=== PATIENT | male | born 1970 ===

== ENCOUNTER 2018-05-17 16:55 | Inpatient (IN) | payer MEDICAID ==
[~2018-05-17] VITALS: Ht 175.3 cm; Wt 122.3 kg
--- NOTE | ~2018-05-17 | HEMODYNAMI ---
PATIENT:EDDIE DAVEY MEDICAL RECORD: [id number] : 72 LOCATION:[address] ADMISSION DATE: 05/17/18 Generatedon:05/23/201814:35 Patient name: EDDIE DAVEY Patient #: [id number] SSN: : Date of study: 05/23/2018 Page: Of Hemodynamic Procedure Report Patient Data Patient Demographics Procedure consent was obtained First Name: EDDIE Gender: Male Last Name: TAMICA : 1970 Patient #: [id number] Age: 48 year(s) Race: Unknown Additional ID: [id number] Contact details Address: [address] [place] [address] State: [place] City: [place] Zip code: [address] Past Medical History Allergies Allergen Reaction Date Comments Reported Penicillins 05/23/2018 Admission Admission Data Admission Date: 05/17/2018 Admission Time: 20:15 Room #: [facility] Procedure Procedure Types Cath Procedure Diagnostic Procedure VANCE Procedure Description Procedure Date Procedure Date: 05/23/2018 Procedure Start Time: 14:19 Procedure End Time: 14:31 Procedure Staff Name Function Joshua Meza MD Performing Physician Alice Gu RT Monitor Gena Ng RT Employment Security Officer Cande Corrales RT Employment Security Officer Rohan Stone CRNA Additional personnel Otoniel Cartwright Typewriter Aligner Jessica Kay RN Employment Security Officer Procedure Data Procedure Complications No complications Procedure Medications Medication Administration Route Dosage 0.9% NaCl I.V. 100 ml/hr Oxygen etCO2 Nasal cannula 2 l/min Hurricaine Mcclure P.O. 1 Sprays Refer to Anesthesia Notes for Sedation Medications Hemodynamics Rest Heart Rate: 124 (bpm) Snapshots Pre Cath Intra NCS Post Cath Vital Signs Time Heart Resp SPO2 etCO2 NIBP (mmHg) Rhythm Pain Sedation Rate (ipm) (%) (mmHg) Status Level (bpm) 14:09:31 123 33 96 26.3 188/110(150) NSR 0 (11) 10(A) , No pain 14:15:11 125 33 98 28.5 192/124(153) NSR 0 (11) 10(A) , No pain 14:19:52 122 23 96 19.5 182/109(135) NSR 0 (11) 5(A) , No pain 14:24:35 119 19 100 16.5 167/87(132) NSR 0 (11) 5(A) , No pain 14:29:09 120 50 100 15 121/104(119) NSR 0 (11) 10(A) , No pain 14:34:08 121 13 99 21 Measuring NSR 0 (11) 10(A) , No pain 14:35:18 120 32 99 36 158/88(118) NSR 0 (11) 10(A) , No pain Medications Time Medication Route Dose Verified Delivered Reason Notes Effectiv eness by by 14:12:41 0.9% NaCl I.V. 100 Joshua Lopez used for ml/hr [place] [facility] procedure MD TORRES 14:12:48 Oxygen etCO2 2 Joshua Lopez used for Nasal l/min [facility] procedure cannula MD TORRES 14:13:01 Hurricaine P.O. 1 Joshua Lewis used for Mcclure Sprays [facility] procedure MD WHITE 14:13:07 Refer to Joshua Lewis Anesthesia [facility] Notes for MD WHITE Sedation Medications Procedure Log Time Note 13:33:46 Time tracking: Regular hours (M-F 7:00 - 5:00) 13:33:52 Plan of Care:Hemodynamics will remain stable., Cardiac rhythm will remain stable., Comfort level will be maintained., Respiratory function will remain adequate., Patient/ family verbilizes understanding of procedure., Procedure tolerated without complication., Recovers from procedure without complications.. 13:35:00 Alice Counts RT(R) sent for patient. Start room use. 14:04:25 Patient received from PCU to CCL 1 Alert and oriented. Tansferred to table in Supine position. 14:04:26 Warm blankets applied, and yrn hugger turned on for patient comfort. 14:04:27 Correct patient and procedure confirmed by team. 14:04:28 Signed procedure consent form obtained from patient. 14:04:28 ECG and BP/O2 sat monitors applied to patient. 14:04:29 Full Disclosure recording started 14:06:41 Vital chart was started 14:06:46 Rhythm: sinus tachycardia 14:08:36 H&P Date Dictated: 05/18/2018 Within 30 days and on chart.. 14:08:38 Pre-procedure instructions explained to patient. 14:08:39 Pre-op teaching completed and patient verbalized understanding. 14:08:40 Family in patients room. 14:08:42 Patient NPO since Midnight. 14:08:52 Patient allergic to Penicillins 14:08:59 Is the patient allergic to Iodine/contrast media? No. 14:09:01 Is patient on blood thinner?No 14:09:03 Patient diabetic? Yes. 14:09:04 If diabetic: On Metformin? No 14:09:08 ----Pre-sedation anethsthesia assessment.---- 14:09:21 see anesthesia notes for pre assessment 14:09:35 Patient pain scale 0/10 ?. 14:09:43 IV patent on arrival in left forearm with 0.9% NaCl at KVO. 14:09:45 Lab results completed and on chart. 14:09:50 Alarms reviewed by Laz Saunders 14:10:15 Rohan Stone CRNA present and monitoring patient for TIVA. 14:10:36 Otoniel Cartwright Radio News Writer present for VANCE. 14:12:41 0.9% NaCl 100 ml/hr I.V. was administered by Jessica Kay RN; used for procedure; 14:12:48 Oxygen 2 l/min etCO2 Nasal cannula was administered by Jessica Kay RN; used for procedure; 14:13:01 Hurricaine Mcclure 1 Sprays P.O. was administered by Joshua Meza MD; used for procedure; 14:13:07 Refer to Anesthesia Notes for Sedation Medications was administered by Joshua Meza MD; ; 14:13:33 Baseline sample Acquired. 14:17:10 Final Timeout: patient, procedure, and site verified with staff and physician. All members of the team are in agreement. 14:17:16 Physical assessment completed. ASA score P 3 - A patient with severe systemic disease as per Joshua Meza MD. 14:17:21 Sedation plan: TIVA Medication:Propofol 14:19:22 Procedure started. 14:19:49 VANCE started. 14:28:19 VANCE completed. 14:28:25 Procedure ended.(Physican Out) 14:28:44 Post procedure rhythm: unchanged. 14:28:56 Post-procedure physical assessment completed. ASA score P 2 - A patient with mild systemic disease as per Joshua Meza MD. 14:28:58 Post procedure instruction explained to patient.Patient verbalizes understanding. 14:28:58 Patient needs reinforcement of post procedure teaching. 14:29:04 See physician's report for complete and final results. 14:31:26 Procedure and supply charges have been captured, reviewed, submitted and are correct. 14:31:30 Procedure Complication : No complications 14:31:36 Report given to PCU. 14:31:42 Patient transfered to PCU with Bed. 14:31:53 Procedure ended. 14:31:53 Full Disclosure recording stopped 14:31:55 End room use (Document Last) 14:35:33 Vital chart was stopped Signature Audit [place] Stage Time Signature Unsigned Intra-Procedure 05/23/2018 Alice 2:35:31 PM Counts RT(R) Signatures Monitor : Alice Signature : Counts RT Date : Time : [address] [place] [address]
[2018-05-17 20:00] VITALS: BP 147/76
--- NOTE | 2018-05-17 20:51 | NUR ---
PT TO ROOM VIA EMS AT 2014. NO INFORMATION RECIEVED ABOUT PATIENT COMING. INVESTIGATED AND SPOKE TO EMS AND EMS STATED THAT PT WAS "BORDERLINE SEPTIC AND HAS A SEPTIC EMBOLI." NOTIFIED DR. CHAVIRA ABOUT PT STATUS. ORDERED STAT LABS, CT, AND VSS. PT RUNNING SINUS TACH 124 ON THE MONITOR. BP 147/64. SPO2 94% ON RA. TEMP 98.9. NO OTHER NEEDS NOTED AT THIS TIME. WCTM AND FOLLOW POC. CL IN REACH, SR UP X2, BED IN LOWEST POSITION.
[2018-05-17] MEDS ORDERED: LANTUS SOL100 UNIT/1 (22:16)
[2018-05-17 22:33] VITALS: BP 147/76; BMI 34.5
[2018-05-17 22:38] LABS: HEMATOCRIT 29.8 % (42.0-54.0); HEMOGLOBIN 10.5 g/dL (13.5-17.5); MCH 28.2 pg (26.0-34.0); MCHC 35.2 g/dL (31.0-37.0); MCV 79.9 fL (80.0-100.0); MEAN PLATELET VOLUME 10.8 fL (7.4-10.4); PLATELET COUNT 391 10x3/uL (130-400); RBC 3.73 10x6/uL (4.20-6.10); RDW 14.5 % (11.5-14.5); WBC 30.1 10x3/uL (4.8-10.8)
[2018-05-17 22:39] LABS: APTT 26.5 SECONDS (22.8-39.4); INR 1.31 (0.85-1.17); PROTIME 15.8 SECONDS (11.6-15.0)
[2018-05-17 22:44] LABS: CALC OSMOLALITY 264 mosm/kg (275-300); CALCIUM 7.5 mg/dL (8.5-10.1); CARBON DIOXIDE 26.4 mmol/L (21.0-32.0); CHLORIDE - SERUM 96 mmol/L (98-107); GLUCOSE 128 mg/dL (74-106); POTASSIUM - SERUM 4.2 mmol/L (3.5-5.1); SODIUM 129 mmol/L (136-145); UREA NITROGEN 25 mg/dL (7-18); eGFR NON AFRICAN AMERICAN 85 mL/min (90-120)
[2018-05-17 22:56] LABS: EOSINOPHILS 1 % (0-7); LYMPHOCYTES 9 % (15-50); MONOCYTES 6 % (2-11); NEUTROPHILS 81 % (40-80); PLATELET ESTIMATE NORMAL
[2018-05-17] MEDS ORDERED: HUMULIN N100 U/ML SC (23:00)
--- NOTE | 2018-05-17 23:17 | NUR ---
PT STATES PAIN OF 10/10 IN BACK [address] NOTIFIED DR[address] CHAVIRA FOR PAIN MEDICATION. OBTAINED ORDER FOR NORCO [address] CHAVIRA OF LABS AND IF WE NEEDED AMMONIA OR LACTIC ACID LEVELS, DENIED BOTH AND STATED "WE WILL LOOK AT THE OTHER LABS IN THE MORNING." PT HR STILL 120. BUT STABLE OTHERWISE. WCTM AND FOLLOW POC. CL IN REACH, SR UP X2, BED IN LOWEST POSITION, AT BEDSIDE.
[2018-05-18] VITALS: BP 124/68
--- NOTE | 2018-05-18 03:50 | NUR ---
TO PT ROOM VIA CALL LIGHT - PT STATES HE WOULD LIKE SOMETHING FOR SLEEP AND SOMETHING STRONGER FOR PAIN, BUT STATES HE WOULD PREFER TO WAIT UNTIL THE MORNING TO BE ABLE TO PERSONALLY TALK TO THE DR. WILL ADMINISTER PRESCRIBED ANALGESIC ACCORDING TO TIME RESTRAINT AND INFORMED PT OF THIS. PT VERBALIZED UNDERSTANDING. VSS. RR EVEN AND UL, NO S/S OF DISTRESS. CL IN REACH, SR UP X2, BED IN LOWEST POSITION. AT BEDSIDE.
[2018-05-18 04:32] VITALS: BP 159/89
[2018-05-18 09:00] VITALS: BP 140/91
[2018-05-18 11:44] VITALS: BMI 35.2
[2018-05-18 12:43] VITALS: BP 143/78
[2018-05-18 15:04] LABS: % SATURATION 11 % (15-55); IRON 12 ug/dl (35-150); TOTAL IRON BIND CAPACITY 107 ug/dl (260-445); UNSAT IRON BIND CAPACITY 95 ug/dl (150-375)
[2018-05-18 15:06] LABS: HEMOGLOBIN 9.4 g/dL (13.5-17.5); MCH 27.3 pg (26.0-34.0); MCHC 33.6 g/dL (31.0-37.0); MCV 81.4 fL (80.0-100.0); MEAN PLATELET VOLUME 10.8 fL (7.4-10.4); PLATELET COUNT 382 10x3/uL (130-400); RBC 3.44 10x6/uL (4.20-6.10); RDW 14.7 % (11.5-14.5); WBC 30.1 10x3/uL (4.8-10.8)
[2018-05-18 15:18] LABS: APTT 27.9 SECONDS (22.8-39.4); INR 1.33 (0.85-1.17)
[2018-05-18 15:37] LABS: ALKALINE PHOSPHATASE 208 U/L (46-116); ALT (SGPT) 25 U/L (10-68); BILIRUBIN - TOTAL 0.71 mg/dL (0.2-1.3); CALC OSMOLALITY 267 mosm/kg (275-300); CALCIUM 7.2 mg/dL (8.5-10.1); CARBON DIOXIDE 26.9 mmol/L (21.0-32.0); CHLORIDE - SERUM 94 mmol/L (98-107); CREATININE - SERUM 1.1 mg/dL (0.6-1.3); FERRITIN 1712 ng/mL (3-244); GLUCOSE 252 mg/dL (74-106); MAGNESIUM - SERUM 1.9 mg/dL (1.8-2.4); POTASSIUM - SERUM 4.1 mmol/L (3.5-5.1); SODIUM 127 mmol/L (136-145); UREA NITROGEN 23 mg/dL (7-18); eGFR NON AFRICAN AMERICAN 76 mL/min (90-120)
[2018-05-18 16:05] VITALS: BP 143/89
[2018-05-18 17:22] LABS: LYMPHOCYTES 9 % (15-50); MONOCYTES 5 % (2-11); NEUTROPHILS 82 % (40-80); PLATELET ESTIMATE NORMAL; PLATELET MORPHOLOGY PLT CLUMPS PRESENT
--- NOTE | 2018-05-18 17:54 | NUR ---
ATTEMPTED MRI; PATIENT IN TOO MUCH PAIN; REFUSED; WILL ATTEMPT TOMORROW.
[2018-05-18 20:00] VITALS: BP 118/47
[2018-05-18 20:00] LABS: ERYTHROCYTE SEDIMENTATION RATE 95 mm/hr (0-15)
--- NOTE | 2018-05-18 23:15 | NUR ---
Received patient in bed, eyes closed, respirations unlabored, deemed to be sleeping. is at bedside. PIV in left forearm in infusing NS TKVO @10ml/hr, no signs of distress. Telemetry on, rhythm ST.
[2018-05-19] VITALS: BP 137/66
[2018-05-19 04:00] VITALS: BP 133/67
[2018-05-19 09:13] VITALS: BP 166/77
[2018-05-19 12:30] VITALS: BP 136/65
--- NOTE | 2018-05-19 12:57 | NUR ---
ATTEMPTED TO GET PATIENT AT 0930 PT IN TOO MUCH PAIN NEEDED MEDS. SPOKE WITH EDWARD TORRES AND SHE WAS GOING TO CALL AND GET AN ORDER. EDWARD CALLED ME BACK AND TOLD ME MEDS WERE ORDERED. TRIED TO GET PATIENT DOWN AGAIN AT 1130. PATIENT REFUSED HE WANTED TO SLEEP INSTEAD. WILL ATTEMPT AGAIN AT THE END OF THE DAY.
--- NOTE | 2018-05-19 19:29 | NUR ---
PT IN BED EATING RED POPCICLE. DENIES NEEDS AT THIS TIME.
[2018-05-19 20:00] VITALS: BP 153/72
[2018-05-20] VITALS (8 sets, daily range): BP systolic 122–185; BP diastolic 71–85
--- NOTE | 2018-05-20 04:21 | NUR ---
RESTING IN BED WITH EYES CLOSED. NO S/S OF DISTRESS OBSERVED. CALL LIGHT IN REACH.
[2018-05-20 12:34] LABS: HEMATOCRIT 28.4 % (42.0-54.0); HEMOGLOBIN 9.6 g/dL (13.5-17.5); MCH 27.5 pg (26.0-34.0); MCHC 33.8 g/dL (31.0-37.0); MCV 81.4 fL (80.0-100.0); MEAN PLATELET VOLUME 10.3 fL (7.4-10.4); PLATELET COUNT 495 10x3/uL (130-400); RBC 3.49 10x6/uL (4.20-6.10); RDW 14.6 % (11.5-14.5); WBC 28.2 10x3/uL (4.8-10.8)
[2018-05-20 12:39] LABS: ANION GAP 13.2 mmol/L (8-16); CALCIUM 7.4 mg/dL (8.5-10.1); CARBON DIOXIDE 24.3 mmol/L (21.0-32.0); CREATININE - SERUM 1.2 mg/dL (0.6-1.3); POTASSIUM - SERUM 4.5 mmol/L (3.5-5.1)
[2018-05-20 12:53] LABS: LYMPHOCYTES 6 % (15-50); MONOCYTES 7 % (2-11); NEUTROPHILS 85 % (40-80)
[2018-05-20 12:54] LABS: PLATELET ESTIMATE INCREASED
--- NOTE | 2018-05-20 19:23 | NUR ---
PT IN BED. AT BEDSIDE. DENIES NEEDS AT THIS TIME.
--- NOTE | 2018-05-21 01:30 | NUR ---
RESTING IN BED. IVF NS @ 75ML/HR TO LEFT WRIST. CURRENT TEMP 99.5 . ON CONTACT PRECAUTIONS FOR MRSA IN BLOOD. MONITOR AND CPOC.
--- NOTE | 2018-05-21 01:57 | NUR ---
SOME ISSUES NOTED BETWEEN PT AND HIS . RAISED VOICES IN ROOM. DIRECTED TO PLEASE LOWER VOICES AND IT IS THE MIDDLE OF THE NIGHT.
[2018-05-21 03:56] VITALS: BP 191/94
--- NOTE | 2018-05-21 07:40 | NUR ---
ASSESSMENT DONE. DENIES NEEDS.
[2018-05-21 08:28] VITALS: BP 193/95
[2018-05-21 09:14] LABS: ANION GAP 12.6 mmol/L (8-16); CALCIUM 7.2 mg/dL (8.5-10.1); CREATININE - SERUM 1.3 mg/dL (0.6-1.3); POTASSIUM - SERUM 4.6 mmol/L (3.5-5.1)
[2018-05-21 09:16] LABS: BASOPHILS 0.1 % (0-2); EOSINOPHILS 0 % (0-7); HEMATOCRIT 26.6 % (42.0-54.0); HEMOGLOBIN 8.9 g/dL (13.5-17.5); IMMATURE GRANULOCYTES 0.8 % (0-5); LYMPHOCYTES 6.6 % (15-50); MCH 27.1 pg (26.0-34.0); MCHC 33.5 g/dL (31.0-37.0); MCV 81.1 fL (80.0-100.0); MEAN PLATELET VOLUME 9.9 fL (7.4-10.4); MONOCYTES 9.1 % (2-11); NEUTROPHILS 83.4 % (40-80); PLATELET COUNT 473 10x3/uL (130-400); RBC 3.28 10x6/uL (4.20-6.10); RDW 14.4 % (11.5-14.5); WBC 28.5 10x3/uL (4.8-10.8)
--- NOTE | 2018-05-21 09:45 | NUR ---
RESTS IN ISOLATION. RESP UL ON . IV PATENT. CALL LIOGHT IN REACH. WILL MONITOR NEEDS.
--- NOTE | 2018-05-21 12:00 | NUR ---
ISO DC PER LAB. BC NEG
[2018-05-21 12:10] VITALS: BP 149/86
[2018-05-21 16:55] VITALS: BP 181/87
--- NOTE | 2018-05-21 17:37 | NUR ---
WITHOUT CHANGES OR DISTRESS NOTED AT THIS TIME. DENIES NEEDS.
[2018-05-21 19:50] VITALS: BP 177/83
[2018-05-21 23:52] VITALS: BP 169/81
[2018-05-22 03:45] VITALS: BP 155/83
--- NOTE | 2018-05-22 04:21 | NUR ---
PT YELLING LOUDLY AND ARGUING WITH , ENTERED ROOM AND PT SITTING UP ON SIDE OF BED AND LEFT ROOM QUICKLY, PT STATED THAT HE IS SORRY FOR YELLING AND IS JUST IN PAIN AND THIRSTY. OFFERED PT CAROLCO, INFORMED HIM THAT HE CAN TAKE MEDICATION WITH A SMALL SIP OF WATER AND STILL BE OK FOR PROCEDURE THIS MORNING. 0426- NORCO 1 TAB GIVEN WITH SMALL SIP OF WATER, ASSISTED PT TO CHAIR AT BED SIDE AND PLACED PTS O2 BACK ON, PT APOLOGETIC FOR CAUSING A DISTURBANCE.
--- NOTE | 2018-05-22 05:01 | NUR ---
PT AND SPOUSE IN ROOM HAVING A VERBAL ARGUMENT. STAFF X 2 SPOKE WITH PT AND SPOUSE AND INFORMED THEM THAT THIS WAS NOT ACCEPTABLE BEHAVIOR AND WOULD NOT BE TOLERATED. SPOUSE LEFT ROOM. NOTIFIED SECURITY AND HE ARRIVED TO ROOM TO SPEAK WITH PATIENT. SPOUSE RETURNED AND IS CURRENTLY IN ROOM WITH PATIENT.
[2018-05-22 06:58] LABS: ANION GAP 14.4 mmol/L (8-16); CALCIUM 7.5 mg/dL (8.5-10.1); CREATININE - SERUM 1.3 mg/dL (0.6-1.3); POTASSIUM - SERUM 4.4 mmol/L (3.5-5.1)
[2018-05-22 07:56] LABS: HEMATOCRIT 25.6 % (42.0-54.0); HEMOGLOBIN 8.5 g/dL (13.5-17.5); MCH 27.2 pg (26.0-34.0); MCHC 33.2 g/dL (31.0-37.0); MCV 82.1 fL (80.0-100.0); MEAN PLATELET VOLUME 10.7 fL (7.4-10.4); PLATELET COUNT 492 10x3/uL (130-400); RBC 3.12 10x6/uL (4.20-6.10); RDW 14.8 % (11.5-14.5)
--- NOTE | 2018-05-22 08:15 | NUR ---
IDENTIFICATION AND RECORDS COMMANDER STATES MD IS CANCELING VANCE TODAY AND WILL DP IT POSSIBLY TOMORROW.
[2018-05-22 08:44] VITALS: BP 162/81
[2018-05-22 09:14] LABS: EOSINOPHILS 1 % (0-7); LYMPHOCYTES 9 % (15-50); MONOCYTES 6 % (2-11); NEUTROPHILS 82 % (40-80); PLATELET ESTIMATE INCREASED
[2018-05-22 09:15] LABS: HYPOCHROMASIA OCC
--- NOTE | 2018-05-22 11:46 | EC ---
PATIENT:EDDIE DAVEY DATE OF SERVICE: 05/17/18 SEX: M MEDICAL RECORD: [id number] DATE OF : [birth year] LOCATION:D.M2 D.213 AGE OF PATIENT: 48 ADMISSION DATE: 05/17/18 REFERRING PHYSICIAN: INTERPRETING PHYSICIAN: MATTHIEU ALVAREZ MD ECHOCARDIOGRAM REPORT ECHO CHARGES 4 ECHO COMPLETE Date: 05/18/18 CLINICAL DIAGNOSIS: ASSESS FOR VEGATATION ECHOCARDIOGRAPHIC MEASUREMENTS (adult normal given) AC root (d.<3.7cm) 3.2 cm LV Septum d (<1.2 cm> 1.4 cm Valve Excursion 1.4 cm LV Septum (systole) 1.7 cm Left Atria (s.<4.0cm> 3.9 cm LVPW d(<1.2cm) 1.7 cm RV (d.<2.3cm) 4.1 cm LVPW (sytole) 1.9 cm LV diastole(<5.6CM) 5.1 cm MV E-F(>70mm/sec) cm LV systole 4.1 cm LVOT Diameter 1.9 cm MV exc.(>10mm) 2.3 cm Est.ejection fraction (50-75%) % DOPPLER: LVIT cm/sec A 127 cm/sec E 112 cm/sec LA cm/sec RVSP 25 mmHg LVOT 153 cm/sec AOP1/2T m/s Asc. Ao 229 cm/sec RVOT 142 cm/sec RA cm/sec PA 168 cm/sec AV Gradient Peak 21.04mmHg AV Mean 12.23mmHg AV Area 2.0 cm MV Gradient Peak 7.08 mmHg MV Mean 3.59 mmHg MV Area cm COMMENTS: Chief Engineering Division: Oriana SCHWARZ Barrel Marker: 1 Dr. Alvarez TAPE# PACS Pericardial Effusion N DATE OF SERVICE: 05/18/2018 FINDINGS: 1. Left ventricular chamber size is within normal limits. Left ventricular systolic function is normal. Overall ejection fraction estimated at 60%. 2. Left atrium, right atrium, and right ventricle chamber sizes are within normal limits. 3. Valvular structures have normal structure and motion. No evidence of vegetative endocarditis. 4. Doppler interrogation reveals no significant valvular insufficiency or ECHOCARDIOGRAM REPORT [id number] EDDIE DAVEY stenosis. 5. No evidence of pericardial effusion or left ventricular thrombus. TRANSINT:[id number] Voice Confirmation ID: [id number] DOCUMENT ID: [id number] MATTHIEU ALVAREZ MD at 1146 CC: [id number] DICTATION DATE: 05/19/18 1127 CORPORATE REAL ESTATE MANAGER: 05/19/18 1136 ADM IN [facility] [address] [id number]
[2018-05-22 12:02] VITALS: BP 166/78
--- NOTE | 2018-05-22 13:51 | NUR ---
Nutrition follow-up: Diet: ADA consistent CHO PO Intake 100% of meals Labs reviewed Wt: 233# +BM visited with pt during meal rounds. Pt with no issues with meals at this time. RDN following.
--- NOTE | 2018-05-22 15:26 | NUR ---
PT IN BED. MD AND DRAWER MAKER AT BEDSIDE ALONG WITH FAMILY. BED LOW. CL IN REACH.
[2018-05-22 16:01] VITALS: BP 103/64
--- NOTE | 2018-05-22 16:01 | NUR ---
PT'S WANTED MD TO LOOK AT PT'S LEGS. DR. FLANAGAN STATES RED WHITMORE ON BACK OF PT'S LEGS IS JUST SCRATCH WHITMORE.
[2018-05-22 20:00] VITALS: BP 163/95
[2018-05-23] VITALS: BP 157/97
--- NOTE | 2018-05-23 03:00 | NUR ---
LYING IN BED WITH EYES CLOSED, CALL LIGHT IN REACH. WILL CONTINUE WITH PLAN OF CARE.
--- NOTE | 2018-05-23 03:45 | NUR ---
RESTING WITH EYES CLOSED, RESPERATIONS EVEN, NO S/S DISTRESS NOTED.
[2018-05-23 04:00] VITALS: BP 160/99
[2018-05-23 06:04] LABS: ANION GAP 14.6 mmol/L (8-16); CALCIUM 7.2 mg/dL (8.5-10.1); CARBON DIOXIDE 20.9 mmol/L (21.0-32.0); CREATININE - SERUM 1.2 mg/dL (0.6-1.3); POTASSIUM - SERUM 4.5 mmol/L (3.5-5.1)
[2018-05-23 06:18] LABS: BASOPHILS 0.2 % (0-2); EOSINOPHILS 0 % (0-7); HEMATOCRIT 24.9 % (42.0-54.0); HEMOGLOBIN 8.2 g/dL (13.5-17.5); IMMATURE GRANULOCYTES 0.6 % (0-5); LYMPHOCYTES 7.8 % (15-50); MCH 26.8 pg (26.0-34.0); MCHC 32.9 g/dL (31.0-37.0); MCV 81.4 fL (80.0-100.0); MONOCYTES 8.1 % (2-11); NEUTROPHILS 83.3 % (40-80); PLATELET COUNT 538 10x3/uL (130-400); RBC 3.06 10x6/uL (4.20-6.10); RDW 14.7 % (11.5-14.5); WBC 26.9 10x3/uL (4.8-10.8)
[2018-05-23 09:47] VITALS: BP 182/97
--- NOTE | 2018-05-23 11:30 | NUR ---
SPOKE WITH INFECTION CONTROL AND THEY STATE PT NEEDS TO BE ON TEMPORARY DROPLET ISOLATION UNTIL THEY RULE OUT MRSA. PT PLACED ON DROPLET ISOLATION.
--- NOTE | 2018-05-23 11:52 | NUR ---
CALLED AND SPOKE WITH MACHINE PECAN PICKER THEY STATED THEY DON'T HAVE A TIME LADELL IS DOING A HEART RIGHT NOW AND IT WON'T BE UNTIL AFTER.
--- NOTE | 2018-05-23 12:10 | NUR ---
MACHINE BP WAS 203/101. MANUALLY CHECKED BP AND IT IS 184/88.
--- NOTE | 2018-05-23 14:00 | NUR ---
PT TAKEN FOR VANCE.
--- NOTE | 2018-05-23 14:39 | NUR ---
SCRAPER HAND STATES PT IS WAKING UP FROM TIVA AND HE DOES HAVE SOME VEGITATION.
[2018-05-23 14:45] VITALS: BP 149/87
--- NOTE | 2018-05-23 14:45 | NUR ---
PT RETURNED FROM VANCE ALERT AND ORIENTED. VS STABLE. PT NOT WANTING TO BE HOOKED UP TO VITAL MACHINE. PT WANTING TO GO USE BATHROOM. UNHOOKED PT FROM VS MACHINE. AT BEDSIDE.
--- NOTE | 2018-05-23 15:41 | NUR ---
DR. FLANAGAN STATES PT DOES NOT NEED TO BE ON ISOLATION. IT'S MSA NOT MRSA.
--- NOTE | 2018-05-23 15:43 | NUR ---
DC'D DROPLET ISOLATION. NOTFIED INFECTION CONTROL AND THEY STATED THEY WOULD REMOVE IT.
[2018-05-23 20:00] VITALS: BP 150/86
[2018-05-24] VITALS: BP 176/80
--- NOTE | 2018-05-24 03:05 | NUR ---
RN NOTE: PATIENT RESTING COMFORTABLY IN BED. RESPIRATIONS ARE EVEN AND UNLABORED. NO S/S OF DISTRESS. CALL LIGHT WITHIN REACH. WILL CPOC.
[2018-05-24 04:00] VITALS: BP 155/97
[2018-05-24 07:42] LABS: CALC OSMOLALITY 269 mosm/kg (275-300); CALCIUM 7.4 mg/dL (8.5-10.1); CARBON DIOXIDE 20.9 mmol/L (21.0-32.0); CHLORIDE - SERUM 97 mmol/L (98-107); CREATININE - SERUM 1.1 mg/dL (0.6-1.3); GLUCOSE 180 mg/dL (74-106); POTASSIUM - SERUM 4.6 mmol/L (3.5-5.1); SODIUM 128 mmol/L (136-145); UREA NITROGEN 35 mg/dL (7-18); eGFR NON AFRICAN AMERICAN 76 mL/min (90-120)
[2018-05-24 08:06] LABS: HEMATOCRIT 23.2 % (42.0-54.0); HEMOGLOBIN 7.6 g/dL (13.5-17.5); MCH 26.9 pg (26.0-34.0); MCHC 32.8 g/dL (31.0-37.0); MEAN PLATELET VOLUME 9.9 fL (7.4-10.4); PLATELET COUNT 494 10x3/uL (130-400); RBC 2.83 10x6/uL (4.20-6.10); RDW 14.6 % (11.5-14.5); WBC 21.6 10x3/uL (4.8-10.8)
[2018-05-24 08:07] VITALS: BP 146/84
[2018-05-24 08:38] LABS: HYPOCHROMASIA OCC; LYMPHOCYTES 7 % (15-50); MONOCYTES 6 % (2-11); NEUTROPHILS 85 % (40-80); PLATELET ESTIMATE INCREASED; ROULEAUX OCC
--- NOTE | 2018-05-24 09:30 | NUR ---
PT HAD NOSE BLEED WITH MINIMAL BLOOD.
--- NOTE | 2018-05-24 10:40 | NUR ---
ALERT AND ORIENTED X4. SITTING UP IN BED. INITIATE DROPLET ISOLATION PER INFECTION CONTROL FOR MRSA IN SPUTUM. DAI NAVA RESUMES PLAN OF CARE. AGREE WITH ASSESSMENT.
--- NOTE | 2018-05-24 11:00 | NUR ---
PT'S TOLD SHE NEEDS TO FOLLOW ISOLATION PRECAUTIONS AND SHE BECAME VISIBLY UPSET WITH NURISNG INSTRUCTOR AND STUDENT.
[2018-05-24 12:11] VITALS: BP 160/98
--- NOTE | 2018-05-24 14:07 | NUR ---
PT TAKEN DOWN FOR XR VIA WC.
--- NOTE | 2018-05-24 14:30 | NUR ---
DR. RIDER AWARE OF PT'S NOSE BLEED EARLIER TODAY.
--- NOTE | 2018-05-24 14:33 | NUR ---
SPOKE WITH SIMRAN FROM IR SHE STATED THEY WON'T DO THORACENTESIS UNTIL PT GETS BLOOD. CALLED [facility]OCK DAVILA AND SHE ORDERED 2 UNITS OF PRBC FOLLOW BY 40 LISA. NOTIFIED SIMRAN TORRES FROM IR AND SHE STATES THAT THEY WILL DO PT TOMORROW AND TO MAKE PT NPO AFTER MIDNIGHT.
--- NOTE | 2018-05-24 14:35 | NUR ---
SPOKE WITH SIMRAN FROM IR SHE STATED THEY WON'T DO THORACENTESIS UNTIL PT GETS BLOOD. CALLED [facility] DAVILA AND SHE ORDERED 2 UNITS OF PRBC FOLLOW BY 20MG LASIX. NOTIFIED SIMRAN TORRES FROM IR AND SHE STATES THAT THEY WILL DO PT TOMORROW AND TO MAKE PT NPO AFTER MIDNIGHT.
[2018-05-24 15:33] VITALS: BP 150/88
--- NOTE | 2018-05-24 16:43 | MORECARE ---
CASE MANAGEMENT DISCHARGE SUMMARY PATIENT: EDDIE DAVEY UNIT: [id number] ADM DATE: 05/17/18 AGE: 48 : [birth year] SEX: M ROOM/BED: D.2130 AUTHOR: JOSE MANUEL CHURCH PHYSICIAN: REFERRING PHYSICIAN: ANA CHAVIRA MD DATE OF SERVICE: 05/24/18 Discharge Plan Patient Name: EDDIE DAVEY [facility] [facility] 1970 Planned Disposition: Home Anticipated Discharge Date: Discharge Date: Expected LOS: Initial Reviewer: [email or web address] Initial Review Date: 05/17/2018 Generated: 05/24/18 5:43 pm DCPIA - Discharge Planning Initial Assessment Updated by [email or web address]: Cholo White on 05/24/18 4:39 pm * Is the patient Alert and Oriented? Yes * How many steps to enter\exit or inside your home? * PCP DR. JIMÉNEZ AT [facility] IN [place] * Pharmacy [facility] IN [place] * Preadmission Environment Home with Family * ADLs Independent * Equipment None * Other Equipment [facility] - PREFERRED EQUIPMENT PROVIDER * List name and contact numbers for known caregivers / representatives who currently or will assist patient after discharge: DHEERAJ DAVEY, SPOUSE, * Verbal permission to speak to the caregivers and representatives has been obtained from the patient. Yes * Community resources currently utilized None * Please name any agencies selected above. NONE * Additional services required to return to the preadmission environment? Yes * Can the patient safely return to the preadmission environment? Yes * Has this patient been hospitalized within the prior 30 days at any hospital? No Patient Name: EDDIE DAVEY Page [id number] at 1643 All edits/amendments must be made on the electronic document DICTATION DATE: 05/24/181641 INDUSTRIAL WELDER: JUSTINA 05/24/181641 RPT#: [id number] DC DATE: STATUS: ADM IN [facility] [address] [place] [address] END OF REPORT
--- NOTE | 2018-05-24 16:45 | NUR ---
X2 UNITS OF PRBC READY IN LAB. JUST STARTED PT'S ANCEF WILL LET THAT FINISH FIRST.
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
[2018-05-24 17:22] VITALS: Ht 175.3 cm; Wt 122.3 kg
--- NOTE | 2018-05-24 17:38 | NUR ---
MIKKI TORRES EXPLAINED TO PT ABOUT BLOOD REACTION AND GETING BLOOD TRANSFUSION. PT VERBALIZED UNDERSTANDING. MIKKI TORRES SPIKED PRBC AND STARTED BLOOD WITH THIS NURSE AT BEDSIDE. VS STABLE. LEFT WRIST 22G BLOOD INFUSING AT 125ML/HR.
--- NOTE | 2018-05-24 18:00 | NUR ---
PT SHOWS NO S/S OF BLOOD REACTION. AFTER FIRST 15 MINUTES. VS STABLE. PT IS ALERT AND ORIENTED AND EATING DINNER TRAY. INCREASED PRBC INFUSING FROM 125 TO 135ML/HR THROUGH LEFT WRIST 22G IV. AT BEDSIDE. WILL CONTINUE TO MONITOR.
--- NOTE | 2018-05-24 18:13 | NUR ---
PT TO WEAR [address] RIDER.
[2018-05-24 20:00] VITALS: BP 187/93
--- NOTE | 2018-05-24 20:48 | NUR ---
PRBCs FINISHED INFUSING, LINE FLUSING WITH NS. NO S/S ADVERSE REACTION NOTED.
--- NOTE | 2018-05-24 22:26 | NUR ---
SECOND UNIT OF PRBCs INFUSING, VITALS STABLE.
[2018-05-25] VITALS: BP 179/89
--- NOTE | 2018-05-25 01:11 | NUR ---
SECOND UNIT OF PRBCS FINISHED INFUSING, LINE FLUSHING WITH NS, NO S/S ADVERSE REACTION NOTED. VITALS REMAIN STABLE.
[2018-05-25 04:00] VITALS: BP 123/58
[2018-05-25 07:10] LABS: APTT 32.4 SECONDS (22.8-39.4)
[2018-05-25 07:11] LABS: INR 1.23 (0.85-1.17); PROTIME 14.9 SECONDS (11.6-15.0)
[2018-05-25 07:24] LABS: ALBUMIN 1.2 g/dL (3.4-5.0); ANION GAP 15.9 mmol/L (8-16); BILIRUBIN - TOTAL 0.57 mg/dL (0.2-1.3); CALCIUM 7.4 mg/dL (8.5-10.1); CARBON DIOXIDE 20.7 mmol/L (21.0-32.0); CREATININE - SERUM 1.2 mg/dL (0.6-1.3); POTASSIUM - SERUM 4.6 mmol/L (3.5-5.1)
[2018-05-25 07:42] LABS: BASOPHILS 0.1 % (0-2); EOSINOPHILS 0 % (0-7); HEMATOCRIT 27.6 % (42.0-54.0); HEMOGLOBIN 9.2 g/dL (13.5-17.5); IMMATURE GRANULOCYTES 0.8 % (0-5); LYMPHOCYTES 9.3 % (15-50); MCHC 33.3 g/dL (31.0-37.0); MCV 80.9 fL (80.0-100.0); MEAN PLATELET VOLUME 9.5 fL (7.4-10.4); MONOCYTES 7.6 % (2-11); NEUTROPHILS 82.2 % (40-80); PLATELET COUNT 473 10x3/uL (130-400); RBC 3.41 10x6/uL (4.20-6.10); RDW 15.3 % (11.5-14.5); WBC 22.1 10x3/uL (4.8-10.8)
[2018-05-25 08:40] VITALS: BP 216/100
[2018-05-25 11:37] VITALS: BP 181/88
[2018-05-25 15:56] VITALS: BP 144/72
--- NOTE | 2018-05-25 19:03 | NUR ---
PT IN CHAIR AT BEDSIDE. IN BED. PT DENIES NEEDS AT THIS TIME.
[2018-05-25 20:00] VITALS: BP 165/90
[2018-05-26] VITALS: BP 167/85
[2018-05-26 04:00] VITALS: BP 188/96
--- NOTE | 2018-05-26 04:00 | NUR ---
FINANCIAL ADVISOR TRAINEE AT BEDSIDE TO OBTAIN VITALS, CALL LIGHT IN REACH. WILL CONTINUE WITH PLAN OF CARE.
[2018-05-26 05:58] LABS: ALBUMIN 1.1 g/dL (3.4-5.0); ANION GAP 14.6 mmol/L (8-16); BILIRUBIN - TOTAL 0.48 mg/dL (0.2-1.3); CALCIUM 7.6 mg/dL (8.5-10.1); CARBON DIOXIDE 21.1 mmol/L (21.0-32.0); CREATININE - SERUM 1.2 mg/dL (0.6-1.3); POTASSIUM - SERUM 4.7 mmol/L (3.5-5.1); PROTEIN - SERUM 6.7 g/dL (6.4-8.2)
[2018-05-26 06:10] LABS: HEMATOCRIT 27.7 % (42.0-54.0); HEMOGLOBIN 9.3 g/dL (13.5-17.5); MCH 27.4 pg (26.0-34.0); MCHC 33.6 g/dL (31.0-37.0); MCV 81.7 fL (80.0-100.0); MEAN PLATELET VOLUME 8.8 fL (7.4-10.4); PLATELET COUNT 432 10x3/uL (130-400); RBC 3.39 10x6/uL (4.20-6.10); RDW 15.8 % (11.5-14.5)
--- NOTE | 2018-05-26 07:29 | NUR ---
PT AWAKE ON HERMILA EOF BED. AT BEDSIDE. HE'S EATING WITHOUT DIFFICULTY. CL IN REACH. SRX2. NO COMPLAINTS/CONCERNS VOICED AT THIS TIME.
[2018-05-26 07:37] LABS: LYMPHOCYTES 4 % (15-50); MONOCYTES 8 % (2-11); NEUTROPHILS 84 % (40-80); PLATELET ESTIMATE INCREASED
[2018-05-26 08:20] VITALS: BP 133/76
[2018-05-26 13:01] VITALS: BP 161/74
--- NOTE | 2018-05-26 13:29 | NUR ---
REVIEWED AND AGREE WITH ASSESMENT.
--- NOTE | 2018-05-26 14:22 | NUR ---
Nutrition Follow Up: Chart reviewed Diet: ADA PO Intake: 97% meal avg BM: 05/26/18 Wt stable Labs reviewed - glucose continues elevated Meds noted including Lasix, Humulin Rec continue ADA diet. RD following.
--- NOTE | 2018-05-26 15:10 | NUR ---
Red rash noted on bilateral arms and legs. Primary physician aware.
--- NOTE | 2018-05-26 16:52 | NUR ---
DR. RIDER REQUESTS INCENTIVE SPIROMETRY FOR PT. WILL ACCOMIDATE.
--- NOTE | 2018-05-26 17:39 | NUR ---
PT WAS ASSISTING WITH SHOWER. SPILT WATER ON THE FLOOR, PROCEEDED TO SLIP AND HURT HER KNEE. IS FINE NOW, WILL FOLLOW UP.
--- NOTE | 2018-05-26 19:31 | NUR ---
CALLED INTO PTS ROOM BY FAMILY. C/O PAIN IN AND AROUND ABD. INSPECTED, IT'S OBVIOUSLY MORE SWOLLEN THAN EARLY TODAY. DISTED AND FIRM. STATES IT FEELS LIKE PREASURE.
[2018-05-26 20:00] VITALS: BP 151/79
--- NOTE | 2018-05-26 20:11 | NUR ---
RECIEVED SITTING UP IN CHAIR WITH SPOUSE LYING IN BED WITH EYES CLOSED. ALERT AND ORIENTED X4. UP AD JUDSON. IV TO LEFT UPPER ARM SL. REMAINS ON DROPLET ISOLATION R/T MRSA IN SPUTUM. DENIES ANY NEEDS AT THIS TIME.
[2018-05-27 00:05] VITALS: BP 161/90
[2018-05-27 04:00] VITALS: BP 152/86
--- NOTE | 2018-05-27 08:19 | NUR ---
PATIENT IS ALERT AND AWAKE. FAMILY AT BEDSIDE. DENIES ANY NEEDS AT THIS TIME.
[2018-05-27 09:52] LABS: BASOPHILS 0.2 % (0-2); EOSINOPHILS 0 % (0-7); HEMATOCRIT 25.6 % (42.0-54.0); HEMOGLOBIN 8.4 g/dL (13.5-17.5); IMMATURE GRANULOCYTES 0.7 % (0-5); LYMPHOCYTES 9.6 % (15-50); MCH 26.6 pg (26.0-34.0); MCHC 32.8 g/dL (31.0-37.0); MEAN PLATELET VOLUME 9.1 fL (7.4-10.4); MONOCYTES 7.6 % (2-11); NEUTROPHILS 81.9 % (40-80); PLATELET COUNT 409 10x3/uL (130-400); RBC 3.16 10x6/uL (4.20-6.10); RDW 15.1 % (11.5-14.5)
[2018-05-27 09:57] VITALS: BP 158/73
[2018-05-27 10:32] LABS: ALBUMIN 1.1 g/dL (3.4-5.0); UREA NITROGEN 33 mg/dL (7-18)
[2018-05-27 10:45] LABS: ALKALINE PHOSPHATASE 151 U/L (46-116); ALT (SGPT) 12 U/L (10-68); BILIRUBIN - TOTAL 0.31 mg/dL (0.2-1.3); CALC OSMOLALITY 273 mosm/kg (275-300); CALCIUM 7.8 mg/dL (8.5-10.1); CARBON DIOXIDE 21.6 mmol/L (21.0-32.0); CHLORIDE - SERUM 99 mmol/L (98-107); CREATININE - SERUM 1.1 mg/dL (0.6-1.3); GLUCOSE 214 mg/dL (74-106); POTASSIUM - SERUM 4.8 mmol/L (3.5-5.1); PROTEIN - SERUM 6.5 g/dL (6.4-8.2); SODIUM 130 mmol/L (136-145); eGFR NON AFRICAN AMERICAN 76 mL/min (90-120)
--- NOTE | 2018-05-27 10:54 | NUR ---
PATIENT IS ALERT AND AWAKE, FAMILY AT BEDSIDE. PATIENT HAS A GENERALIZED RASH ALL OVER HIS BODY. THERE ARE RED PATCHES AND THERE ARE WHITE PATCHES WHERE THE RED PATCHES APPEAR TO BE HEALING. FAMILY REPORTS THAT PATIENT HAS COUGHED UP A LARGE MUCOUS WITH DRIED BLOOD. HE HAS BEEN BLOWING HIS NOSE REPEATEDLY AND REPORTS HAVING NASAL DRYNESS FROM THE OXYGEN. HE IS REFUSING THE KVO NORMAL SALINE, BECAUSE HE HAS PITTING EDEMA IN LOWER EXTREMITIES.
--- NOTE | 2018-05-27 11:11 | NUR ---
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 LOTS OF SPUTUM PRODUCTION. PATIENT IS ON TELEMETRY. HR IS SINUS TACH AT 114. CALL LIGHT WITHIN REACH.
[2018-05-27 12:46] VITALS: BP 182/100
[2018-05-27 17:45] VITALS: BP 193/82
--- NOTE | 2018-05-27 19:21 | NUR ---
RECIEVED RESTING IN BED WITH HOB ELEVATE AND TV ON. SPOUSE AT BEDSIDE. ALERT AND ORIENTED X4. UP AD JUDSON. USES URINAL AT BEDDSIDE.IV TO LEFT UPPER ARM SL.. TELEMETRY IN PLACE. REMAINS IN DROPLET ISOLATION R/T MRSA IN SPUTUM. ABD REMAINS DISTENDED. GENERALIZED EDEMA TO EXTREMITIES. SKIN PEELING FROM SOME FINGERS. CONT TO HAVE RASH TO ARMS LEGGS, ABD AND TRUNK LOOKS BETTER TOG]AY. DENIES ANY NEEDS. WILL CONT. POC.
[2018-05-27 20:00] VITALS: BP 160/87
[2018-05-28] VITALS: BP 148/76
[2018-05-28 04:00] VITALS: BP 153/89
--- NOTE | 2018-05-28 07:45 | NUR ---
PT RECIEVING BREATHING TX. NO COMPLAINTS/CONCNERNS VOICED AT THIS TIME. IS ASLEEP IN RECLINER BY BELAUREEN. CL IN REACH. SRX2.
[2018-05-28 08:33] VITALS: BP 159/82
[2018-05-28 10:00] LABS: BASOPHILS 0.2 % (0-2); EOSINOPHILS 0.9 % (0-7); HEMATOCRIT 24.8 % (42.0-54.0); HEMOGLOBIN 8.1 g/dL (13.5-17.5); IMMATURE GRANULOCYTES 0.8 % (0-5); MCH 26.9 pg (26.0-34.0); MCHC 32.7 g/dL (31.0-37.0); MCV 82.4 fL (80.0-100.0); MONOCYTES 7.2 % (2-11); NEUTROPHILS 78.9 % (40-80); PLATELET COUNT 460 10x3/uL (130-400); RBC 3.01 10x6/uL (4.20-6.10); RDW 15.6 % (11.5-14.5); WBC 15.9 10x3/uL (4.8-10.8)
[2018-05-28 10:12] LABS: ANION GAP 14.5 mmol/L (8-16); BILIRUBIN - TOTAL 0.34 mg/dL (0.2-1.3); CALCIUM 7.7 mg/dL (8.5-10.1); CARBON DIOXIDE 22.3 mmol/L (21.0-32.0); CREATININE - SERUM 1.2 mg/dL (0.6-1.3); POTASSIUM - SERUM 4.8 mmol/L (3.5-5.1); PROTEIN - SERUM 6.3 g/dL (6.4-8.2)
[2018-05-28 10:13] LABS: ALBUMIN 1.6 g/dL (3.4-5.0)
--- NOTE | 2018-05-28 12:00 | NUR ---
RN ROUNDS. PATIENT RESTING IN BED. REMAINS IN DROPLET ISOLATION. NOON VITAL SIGNS COMPLETED. PATIENT IS ON TELEMETRY. HR IS 118, SINUS TACH. NO DISTRESS. CALL LIGHT WITHIN REACH.
[2018-05-28 13:26] VITALS: BP 167/94
[2018-05-28 17:01] VITALS: BP 181/93
[2018-05-28 20:00] VITALS: BP 186/82
[2018-05-29] VITALS: BP 154/96
--- NOTE | 2018-05-29 00:14 | NUR ---
RECIEVED SITTING UP ON SIDE OF BED. ALERT AND ORIENTED X4. SPOUSE AT BEDSIDE. UP AD JUDSON TO USE URINAL. MIDLINE TO LEFT UPPER ARM SL.. NO REDNESS OR SWEELLING TO SITE AND DSG INTACT. REMAINS ON DROPLET ISOLATION R/T MRSA IN SPUTUM. SCATTER RASH/ SORES TO LOWER EXTREMITIES. TELEMETRY IN PLACE. GENERALIZED EDEMA TO LOWER EXTREMITIES. DENIES ANY NEEDS AT THIS TIME.
[2018-05-29 04:00] VITALS: BP 151/83
--- NOTE | 2018-05-29 04:57 | NUR ---
AWAKE AND ALERT UP IN BED WITH EYES OPEN AND TV ON . DENIES ANY NEEDS AT THIS TIME.
[2018-05-29 05:46] LABS: BASOPHILS 0.2 % (0-2); EOSINOPHILS 1.4 % (0-7); HEMATOCRIT 24.2 % (42.0-54.0); HEMOGLOBIN 7.8 g/dL (13.5-17.5); IMMATURE GRANULOCYTES 0.6 % (0-5); LYMPHOCYTES 11.6 % (15-50); MCH 26.6 pg (26.0-34.0); MCHC 32.2 g/dL (31.0-37.0); MCV 82.6 fL (80.0-100.0); MEAN PLATELET VOLUME 8.8 fL (7.4-10.4); MONOCYTES 6.7 % (2-11); NEUTROPHILS 79.5 % (40-80); PLATELET COUNT 429 10x3/uL (130-400); RBC 2.93 10x6/uL (4.20-6.10); RDW 15.6 % (11.5-14.5); WBC 16.1 10x3/uL (4.8-10.8)
[2018-05-29 06:04] LABS: ALBUMIN 1.9 g/dL (3.4-5.0); ALKALINE PHOSPHATASE 135 U/L (46-116); BILIRUBIN - TOTAL 0.39 mg/dL (0.2-1.3); CALCIUM 8.4 mg/dL (8.5-10.1); CARBON DIOXIDE 23.2 mmol/L (21.0-32.0); CHLORIDE - SERUM 102 mmol/L (98-107); POTASSIUM - SERUM 4.6 mmol/L (3.5-5.1); SODIUM 135 mmol/L (136-145); UREA NITROGEN 24 mg/dL (7-18)
[2018-05-29 06:07] LABS: ALT (SGPT) 16 U/L (10-68); CALC OSMOLALITY 275 mosm/kg (275-300); CREATININE - SERUM 0.8 mg/dL (0.6-1.3); GLUCOSE 139 mg/dL (74-106); eGFR NON AFRICAN AMERICAN > 90 mL/min (90-120)
--- NOTE | 2018-05-29 08:15 | NUR ---
PT RESTING IN BED WITH EYES OPEN CALL LIGHT IN REACH WILL MONITER
--- NOTE | 2018-05-29 11:07 | MORECARE ---
CASE MANAGEMENT DISCHARGE SUMMARY PATIENT: EDDIE DAVEY UNIT: [id number] ADM DATE: 05/17/18 AGE: 48 : 72 SEX: M ROOM/BED: D.2130 AUTHOR: RANJITDOC PHYSICIAN: REFERRING PHYSICIAN: ANA CHAVIRA MD DATE OF SERVICE: 05/29/18 Discharge Plan Patient Name: EDDIE DAVEY Facility: [facility]:[place] : 1970 Planned Disposition: Home Anticipated Discharge Date: Discharge Date: Expected LOS: Initial Reviewer: [id number] Initial Review Date: 05/17/2018 Generated: 05/29/18 12:07 pm Comments DCP- Discharge Planning Updated by [id number]: Cholo White on 05/29/18 10:[address] Patient Name: EDDIE DAVEY Encounter No: [id number] : 1970 Primary Insurance: MEDICAID [place] Anticipated DC Date: Planned Disposition: Home DCP follow-up note: CM RECEIVED CALL FROM PT'S SPOUSE WHO ASKED THAT CM MEET WITH PT IN ROOM THIS MORNING REGARDING DISCHARGE PLANNING. CM MET WITH PT AND SPOUSE IN ROOM REQUESTED. PT TEARFULLY REQUESTED TO BE DISCHARGED HOME WITH OUTPATIENT IV ANTIBIOTICS. CM INFORMED PT THAT BASED ON HIS HISTORY OF IV DRUG USE, THE DOCTOR MAY NOT BE WILLING FOR THAT PLAN. PT CRIED AND STATES HE WILL DO A DRUG TEST EVERYDAY AND PROMISES NOT TO USE DRUGS. PT WANTS TO BE CLOSER TO HOME AND IF POSSIBLE, TRANSFER BACK TO THE HOSPITAL THAT SENT HIM HERE. CM INFORMED PT THAT CM WILL NOTIFY ELECTRICAL SUBCONTRACTOR. PT IS AWARE THAT THE DOCTOR WILL BE ROUNDING LATER TODAY AND WILL DISCUSS HIS DESIRES WITH THE DOCTOR. CHELO SPOKE TO NEIL GUIDO, NOTIFIED OF PT'S REQUEST; ELECTRICAL SUBCONTRACTOR ADVISED THAT PT'S REQUESTS ARE NOT OPTIONS FOR CARE AT THIS TIME. CM TO CONTINUE TO FOLLOW AND ASSIST NEEDED. HILDA Estrada DCP- Discharge Planning Updated by [id number]: Cholo White on 05/24/18 3:[address] Patient Name: EDDIE DAVEY Admission Status: Urgent Accout number: [id number] Admission Date: 05-17-2018 : 1970 Admission Diagnosis:SHORTNESS OF BREATH Attending: ANA CHAVIRA Current LOS: 7 Anticipated DC Date: Planned Disposition: Home Primary Insurance: MEDICAID [place] Discharge Planning Comments: CM SPOKE TO PT AND SPOUSE IN ROOM AT PT'S REQUEST. EDDIE DAVEY provided verbal consent to discuss current and ongoing needs with/in the presence of: SPOUSE, DHEERAJ. PT HAS NO MEDICAL EQUIPMENT AT HOME AND PREFERS [facility] IF ANY IS NEEDED. PT HAS NOT ASSISTANCE AT HOME AND REPORTS LIVING AT HOME INDEPENDENTLY WITH HIS SPOUSE. PT REPORTS HISTORY OF DRUG USE IV AND THAT HE DID "SLIP UP ON SUPERBOWL TUESDAY AND SHOOT UP A LOAD." PT REPORTS THAT IT KILLED HIM AND HE IS NOT GOING TO EVER USE DRUGS AGAIN. PT REPORTS PLAN TO RETURN HOME WITH SPOUSE. PT REPORTS PLAN TO FILE FOR DISABILITY AND HAS BEEN DECLINED 3 TIMES FOR DISABILITY PREVIOUSLY. 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 CM EXPLAINED THAT ONCE A TREATMENT PLAN IS DEVELOPED, CM WOULD BE AVAILABLE TO ASSIST WITH ANY NEEDS. CM PROVIDED CM CONTACT INFORMATION TO PT AND HIS SPOUSE. CM TO FOLLOW AND ASSIST NEEDED. Geographic Information Systems Director: Cholo White DCPIA - Discharge Planning Initial Assessment Updated by [id number]: Cholo White on 05/24/18 4:39 pm * Is the patient Alert and Oriented? Yes * How many steps to enter\\exit or inside your home? * PCP DR. JIMÉNEZ AT [facility] IN [place] * Pharmacy [facility] IN [place] * Preadmission Environment Home with Family * ADLs Independent * Equipment None * Other Equipment [facility] - PREFERRED EQUIPMENT PROVIDER * List name and contact numbers for known caregivers / representatives who currently or will assist patient after discharge: DHEERAJ DAVEY, SPOUSE, * Verbal permission to speak to the caregivers and representatives has been obtained from the patient. Yes * Community resources currently utilized None * Please name any agencies selected above. NONE * Additional services required to return to the preadmission environment? Yes * Can the patient safely return to the preadmission environment? Yes * Has this patient been hospitalized within the prior 30 days at any hospital? No Last DP export: 05/24/18 4:01 p Patient Name: EDDIE DVAEY Page 51610 at 1107 All edits/amendments must be made on the electronic document DICTATION DATE: 05/29/181106 WANIGAN CLERK: JUSTINA 05/29/181106 RPT#: [id number] DC DATE: STATUS: ADM IN [facility] [address] [place] [address] END OF REPORT
--- NOTE | 2018-05-29 12:32 | NUR ---
ASSESMENT REVIEWED AND AGREE.
[2018-05-29 12:52] VITALS: BP 174/97
--- NOTE | 2018-05-29 14:24 | NUR ---
PT RESTING IN BED WITH EYES OPEN CALL LIGHT IN REACH AT BED SIDE NO PROBLEMS WILL MONITER
--- NOTE | 2018-05-29 17:16 | MORECARE ---
CASE MANAGEMENT DISCHARGE SUMMARY PATIENT: EDDIE DAVEY UNIT: [id number] ADM DATE: 05/17/18 AGE: 48 : 72 SEX: M ROOM/BED: D.2130 AUTHOR: RANJITDOC PHYSICIAN: REFERRING PHYSICIAN: ANA CHAVIRA MD DATE OF SERVICE: 05/29/18 Discharge Plan Patient Name: EDDIE DAVEY Facility: [facility]:[place] : 1970 Planned Disposition: Home with Home Health Anticipated Discharge Date: 05/30/18 Discharge Date: Expected LOS: 13 Initial Reviewer: [id number] Initial Review Date: 05/17/2018 Generated: 05/29/18 6:16 pm Comments DCP- Discharge Planning Updated by [id number]: Cholo White on 05/29/18 10:[address] Patient Name: EDDIE DAVEY Encounter No: [id number] : 1970 Primary Insurance: MEDICAID [place] Anticipated DC Date: Planned Disposition: Home DCP follow-up note: CM RECEIVED CALL FROM PT'S SPOUSE WHO ASKED THAT CM MEET WITH PT IN ROOM THIS MORNING REGARDING DISCHARGE PLANNING. CM MET WITH PT AND SPOUSE IN ROOM REQUESTED. PT TEARFULLY REQUESTED TO BE DISCHARGED HOME WITH OUTPATIENT IV ANTIBIOTICS. CM INFORMED PT THAT BASED ON HIS HISTORY OF IV DRUG USE, THE DOCTOR MAY NOT BE WILLING FOR THAT PLAN. PT CRIED AND STATES HE WILL DO A DRUG TEST EVERYDAY AND PROMISES NOT TO USE DRUGS. PT WANTS TO BE CLOSER TO HOME AND IF POSSIBLE, TRANSFER BACK TO THE HOSPITAL THAT SENT HIM HERE. CM INFORMED PT THAT CM WILL NOTIFY HARNESS MENDER. PT IS AWARE THAT THE DOCTOR WILL BE ROUNDING LATER TODAY AND WILL DISCUSS HIS DESIRES WITH THE DOCTOR. CHELO SPOKE TO NEIL GUIDO, NOTIFIED OF PT'S REQUEST; HARNESS MENDER ADVISED THAT PT'S REQUESTS ARE NOT OPTIONS FOR CARE AT THIS TIME. CM TO CONTINUE TO FOLLOW AND ASSIST NEEDED. HILDA Estrada DCP- Discharge Planning Updated by [id number]: Cholo White on 05/24/18 3:[address] Patient Name: EDDIE DAVEY Admission Status: Urgent Accout number: [id number] Admission Date: 05-17-2018 : 1970 Admission Diagnosis:SHORTNESS OF BREATH Attending: ANA CHAVIRA Current LOS: 7 Anticipated DC Date: Planned Disposition: Home Primary Insurance: MEDICAID [place] Discharge Planning Comments: CM SPOKE TO PT AND SPOUSE IN ROOM AT PT'S REQUEST. EDDIE DAVEY provided verbal consent to discuss current and ongoing needs with/in the presence of: SPOUSE, DHEERAJ. PT HAS NO MEDICAL EQUIPMENT AT HOME AND PREFERS [facility] IF ANY IS NEEDED. PT HAS NOT ASSISTANCE AT HOME AND REPORTS LIVING AT HOME INDEPENDENTLY WITH HIS SPOUSE. PT REPORTS HISTORY OF DRUG USE IV AND THAT HE DID "SLIP UP ON SUPERBOWL TUESDAY AND SHOOT UP A LOAD." PT REPORTS THAT IT KILLED HIM AND HE IS NOT GOING TO EVER USE DRUGS AGAIN. PT REPORTS PLAN TO RETURN HOME WITH SPOUSE. PT REPORTS PLAN TO FILE FOR DISABILITY AND HAS BEEN DECLINED 3 TIMES FOR DISABILITY PREVIOUSLY. 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 CM EXPLAINED THAT ONCE A TREATMENT PLAN IS DEVELOPED, CM WOULD BE AVAILABLE TO ASSIST WITH ANY NEEDS. CM PROVIDED CM CONTACT INFORMATION TO PT AND HIS SPOUSE. CM TO FOLLOW AND ASSIST NEEDED. Personal Computer Network Analyst: Cholo White DCPIA - Discharge Planning Initial Assessment Updated by [id number]: Cholo White on 05/24/18 4:39 pm * Is the patient Alert and Oriented? Yes * How many steps to enter\\exit or inside your home? * PCP DR. JIMÉNEZ AT [facility] IN [place] * Pharmacy [facility] IN [place] * Preadmission Environment Home with Family * ADLs Independent * Equipment None * Other Equipment [facility] - PREFERRED EQUIPMENT PROVIDER * List name and contact numbers for known caregivers / representatives who currently or will assist patient after discharge: DHEERAJ DAVEY, SPOUSE, * Verbal permission to speak to the caregivers and representatives has been obtained from the patient. Yes * Community resources currently utilized None * Please name any agencies selected above. NONE * Additional services required to return to the preadmission environment? Yes * Can the patient safely return to the preadmission environment? Yes * Has this patient been hospitalized within the prior 30 days at any hospital? No Coverage Notice Reviewer: [id number] - Cholo White Notice Issued Date-Time: 05/29/2018 16:59 Notice Type: Patient Choice Letter Notice Delivered To: Patient Relationship to Patient: Pecan Cleaner Name: Delivery Method: HAND - Hand Delivered Susanne Days: Prior Verbal Notification: Recipient Understood Notice: Yes Recipient Signature: Yes Med Rec Note Co-signed by Attending: Coverage Notice Comment: 1- [facility], 2- [facility] Last DP export: 05/29/18 10:07 a Patient Name: EDDIE DAVEY Page [id number] at 1716 All edits/amendments must be made on the electronic document DICTATION DATE: 05/29/181714 FISH HEADER: JUSTINA 05/29/181714 RPT#: [id number] DC DATE: STATUS: ADM IN [facility] [address] [place] [address] END OF REPORT
--- NOTE | 2018-05-29 18:14 | NUR ---
PT RESTING WITH EYES OPEN CALL LIGHT IN REACH WILL MONITER AT BEDSIDE
--- NOTE | 2018-05-29 19:16 | NUR ---
RECIEVED UP IN BED WITH EYES OPEN AND TV ON. SPOUSE AT BEDSIDE. STATED THAT HE GETS TO GO HOME TOMORROW. UNABLE TO VERIFY. MIDLINE TO LEFT UPPER ARM WITH DSG INTACT. CONT TO HAVE GENERALIZED SWELLING TO LOWER EXTREMITIS. PITTING EDEMA TO LEFT HAND. ALERT AND ORIENTED X4. DENIES ANY NEEDS AT THIS TIME,
[2018-05-29 20:00] VITALS: BP 151/93
[2018-05-30] VITALS: BP 150/88
[2018-05-30 04:00] VITALS: BP 152/85
--- NOTE | 2018-05-30 06:29 | NUR ---
POTASSIUM REPORTED 3.1 THIS AM. EP PROTOCOL IN PLACE. 40MEQ GIVEN AND LAB TO BE REPEATED IN 4 HOURS.
[2018-05-30 07:19] LABS: BASOPHILS 0.2 % (0-2); EOSINOPHILS 1.3 % (0-7); HEMATOCRIT 24.1 % (42.0-54.0); HEMOGLOBIN 7.7 g/dL (13.5-17.5); IMMATURE GRANULOCYTES 0.4 % (0-5); LYMPHOCYTES 11.2 % (15-50); MCH 26.5 pg (26.0-34.0); MCV 82.8 fL (80.0-100.0); MEAN PLATELET VOLUME 9.3 fL (7.4-10.4); MONOCYTES 8.2 % (2-11); NEUTROPHILS 78.7 % (40-80); PLATELET COUNT 497 10x3/uL (130-400); RBC 2.91 10x6/uL (4.20-6.10); RDW 15.4 % (11.5-14.5); WBC 16.6 10x3/uL (4.8-10.8)
[2018-05-30 07:50] LABS: CALC OSMOLALITY 279 mosm/kg (275-300); CALCIUM 8.6 mg/dL (8.5-10.1); CARBON DIOXIDE 24.9 mmol/L (21.0-32.0); CHLORIDE - SERUM 101 mmol/L (98-107); CREATININE - SERUM 0.9 mg/dL (0.6-1.3); GLUCOSE 156 mg/dL (74-106); POTASSIUM - SERUM 4.5 mmol/L (3.5-5.1); SODIUM 137 mmol/L (136-145); UREA NITROGEN 21 mg/dL (7-18); eGFR NON AFRICAN AMERICAN > 90 mL/min (90-120)
--- NOTE | 2018-05-30 08:09 | NUR ---
RESUMING PT CARE, PT LAYING IN BED ALERT AND ORIENTED, RESPIRATIONS EVEN AND UNLABORED. REFUSES IV FLUIDS DUE TO LOWER EXTREMETY EDEMA. SPOUSE AT BEDSIDE, CALL LIGHT IN REACH, WILL CONTINUE TO MONITOR AND FOLLOW PLAN OF CARE.
--- NOTE | 2018-05-30 08:56 | MORECARE ---
CASE MANAGEMENT DISCHARGE SUMMARY PATIENT: EDDIE DAVEY UNIT: [id number] ADM DATE: 05/17/18 AGE: 48 : 72 SEX: M ROOM/BED: D.2130 AUTHOR: RANJIT,DOC PHYSICIAN: REFERRING PHYSICIAN: ANA CHAVIRA MD DATE OF SERVICE: 05/30/18 Discharge Plan Patient Name: EDDIE DAVEY Facility: [facility]:[place] : 1970 Planned Disposition: Home with Home Health Anticipated Discharge Date: 05/30/18 Discharge Date: Expected LOS: 13 Initial Reviewer: [id number] Initial Review Date: 05/17/2018 Generated: 05/30/18 9:56 am Comments DCP- Discharge Planning Updated by [id number]: Cholo White on 05/29/18 4:[address] Patient Name: EDDIE DAVEY Encounter No: [id number] : 1970 Primary Insurance: MEDICAID [place] Anticipated DC Date: 05-30-2018 Planned Disposition: Home with Home Health External Planned Provider: TO BE DETERMINED DCP follow-up note: CM RECEIVED ORDER TO ARRANGE HOME HEALTH AND HOME IV INFUSION FOR DISCHARGE HOME. CM SPOKE TO PT AND SPOUSE IN ROOM, DISCUSSED DISCHARGE PLAN AND HOME HEALTH WELL HOME INFUSION COMPANIES. CM PROVIDED HOME HEALTH LISTING. PT SIGNED CHOICE FOR [address] [place] [address] [address] [place] [address] HOME HEALTH. PT HAS NO PREFERENCE ON HOME INFUSION PROVIDER. CM TO ARRANGE HOME HEALTH WITH HOME INFUSION 05-30-18 FOR DISCHARGE HOME. HILDA Estrada DCP- Discharge Planning Updated by [email or web address]: Cholo White on 05/29/18 10:[address] Patient Name: EDDIE DAVEY Encounter No: [id number] : 1970 Primary Insurance: MEDICAID [place] Anticipated DC Date: Planned Disposition: Home DCP follow-up note: CM RECEIVED CALL FROM PT'S SPOUSE WHO ASKED THAT CM MEET WITH PT IN ROOM THIS MORNING REGARDING DISCHARGE PLANNING. CM MET WITH PT AND SPOUSE IN ROOM REQUESTED. PT TEARFULLY REQUESTED TO BE DISCHARGED HOME WITH OUTPATIENT IV ANTIBIOTICS. CM INFORMED PT THAT BASED ON HIS HISTORY OF IV DRUG USE, THE DOCTOR MAY NOT BE WILLING FOR THAT PLAN. PT CRIED AND STATES HE WILL DO A DRUG TEST EVERYDAY AND PROMISES NOT TO USE DRUGS. PT WANTS TO BE CLOSER TO HOME AND IF POSSIBLE, TRANSFER BACK TO THE HOSPITAL THAT SENT HIM HERE. CM INFORMED PT THAT CM WILL NOTIFY LEAD ELECTRICIAN. PT IS AWARE THAT THE DOCTOR WILL BE ROUNDING LATER TODAY AND WILL DISCUSS HIS DESIRES WITH THE DOCTOR. CM SPOKE TO NEIL GUIDO, NOTIFIED OF PT'S REQUEST; LEAD ELECTRICIAN ADVISED THAT PT'S REQUESTS ARE NOT OPTIONS FOR CARE AT THIS TIME. CM TO CONTINUE TO FOLLOW AND ASSIST NEEDED. Cholo White, CASE MANAGEMENT DCP- Discharge Planning Updated by [id number]: Cholo White on 05/24/18 3:[address] Patient Name: EDDIE DAVEY Admission Status: Urgent Accout number: [id number] Admission Date: 05-17-2018 : 1970 Admission Diagnosis:SHORTNESS OF BREATH Attending: ANA CHAVIRA Current LOS: 7 Anticipated DC Date: Planned Disposition: Home Primary Insurance: MEDICAID [place] Discharge Planning Comments: CM SPOKE TO PT AND SPOUSE IN ROOM AT PT'S REQUEST. EDDIE DAVEY provided verbal consent to discuss current and ongoing needs with/in the presence of: SPOUSE, DHEERAJ. PT HAS NO MEDICAL EQUIPMENT AT HOME AND PREFERS [facility] IF ANY IS NEEDED. PT HAS NOT ASSISTANCE AT HOME AND REPORTS LIVING AT HOME INDEPENDENTLY WITH HIS SPOUSE. PT REPORTS HISTORY OF DRUG USE IV AND THAT HE DID "SLIP UP ON SUPERBOWL TUESDAY AND SHOOT UP A LOAD." PT REPORTS THAT IT KILLED HIM AND HE IS NOT GOING TO EVER USE DRUGS AGAIN. PT REPORTS PLAN TO RETURN HOME WITH SPOUSE. PT REPORTS PLAN TO FILE FOR DISABILITY AND HAS BEEN DECLINED 3 TIMES FOR DISABILITY PREVIOUSLY. 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 CM EXPLAINED THAT ONCE A TREATMENT PLAN IS DEVELOPED, CM WOULD BE AVAILABLE TO ASSIST WITH ANY NEEDS. CM PROVIDED CM CONTACT INFORMATION TO PT AND HIS SPOUSE. CM TO FOLLOW AND ASSIST NEEDED. Molded Goods Operator: Cholo White DCPIA - Discharge Planning Initial Assessment Updated by [id number]: Cholo White on 05/24/18 4:39 pm * Is the patient Alert and Oriented? Yes * How many steps to enter\\exit or inside your home? * PCP DR. JIMÉNEZ AT [facility] IN [place] * Pharmacy [facility] IN [place] * Preadmission Environment Home with Family * ADLs Independent * Equipment None * Other Equipment [facility] - PREFERRED EQUIPMENT PROVIDER * List name and contact numbers for known caregivers / representatives who currently or will assist patient after discharge: DHEERAJ DAVEY, SPOUSE, * Verbal permission to speak to the caregivers and representatives has been obtained from the patient. Yes * Community resources currently utilized None * Please name any agencies selected above. NONE * Additional services required to return to the preadmission environment? Yes * Can the patient safely return to the preadmission environment? Yes * Has this patient been hospitalized within the prior 30 days at any hospital? No External Providers External Provider: [facility] Next Contact Date: 05/30/2018 Service Request Date: Service Type: Resolution: Reviewer: Comments: Coverage Notice Reviewer: [email or web address] Jaqueline White Notice Issued Date-Time: 05/29/2018 16:59 Notice Type: Patient Choice Letter Notice Delivered To: Patient Relationship to Patient: Community Leader Name: Delivery Method: HAND - Hand Delivered Susanne Days: Prior Verbal Notification: Recipient Understood Notice: Yes Recipient Signature: Yes Med Rec Note Co-signed by Attending: [facility]age Notice [facility], [facility]- [facility] Last DP export: 05/29/18 4:16 p Patient Name: EDDIE DAVEY Page 44022 at 0856 All edits/amendments must be made on the electronic document DICTATION DATE: 05/30/18 0856 EAP COUNSELOR: JUSTINA 05/30/18 0856 RPT#: [id number] DC DATE: STATUS: ADM IN [facility] [address] [place] [address] END OF REPORT
--- NOTE | 2018-05-30 09:03 | MORECARE ---
CASE MANAGEMENT DISCHARGE SUMMARY PATIENT: EDDIE DAVEY UNIT: [id number] ADM DATE: 05/17/18 AGE: 48 : 72 SEX: M ROOM/BED: D.2130 AUTHOR: RANJIT,DOC PHYSICIAN: REFERRING PHYSICIAN: ANA CHAVIRA MD DATE OF SERVICE: 05/30/18 Discharge Plan Patient Name: EDDIE DAVEY Facility: [facility]:[place] : 1970 Planned Disposition: Home with Home Health Anticipated Discharge Date: 05/30/18 Discharge Date: Expected LOS: 13 Initial Reviewer: [id number] Initial Review Date: 05/17/2018 Generated: 05/30/18 10:03 am Comments DCP- Discharge Planning Updated by [email or web address]: Cholo White on 05/29/18 4:[address] Patient Name: EDDIE DAVEY Encounter No: [id number] : 1970 Primary Insurance: MEDICAID [place] Anticipated DC Date: 05-30-2018 Planned Disposition: Home with Home Health External Planned Provider: TO BE DETERMINED DCP follow-up note: CM RECEIVED ORDER TO ARRANGE HOME HEALTH AND HOME IV INFUSION FOR DISCHARGE HOME. CM SPOKE TO PT AND SPOUSE IN ROOM, DISCUSSED DISCHARGE PLAN AND HOME HEALTH WELL HOME INFUSION COMPANIES. CM PROVIDED HOME HEALTH LISTING. PT SIGNED CHOICE FOR [address] [place] [address] [place] [address] HOME HEALTH. PT HAS NO PREFERENCE ON HOME INFUSION PROVIDER. CM TO ARRANGE HOME HEALTH WITH HOME INFUSION 05-30-18 FOR DISCHARGE HOME. HILDA Estrada DCP- Discharge Planning Updated by [id number]: Cholo White on 05/29/18 10:[address] Patient Name: EDDIE DAVEY Encounter No: [id number] : 1970 Primary Insurance: MEDICAID [place] Anticipated DC Date: Planned Disposition: Home DCP follow-up note: CM RECEIVED CALL FROM PT'S SPOUSE WHO ASKED THAT CM MEET WITH PT IN ROOM THIS MORNING REGARDING DISCHARGE PLANNING. CM MET WITH PT AND SPOUSE IN ROOM REQUESTED. PT TEARFULLY REQUESTED TO BE DISCHARGED HOME WITH OUTPATIENT IV ANTIBIOTICS. CM INFORMED PT THAT BASED ON HIS HISTORY OF IV DRUG USE, THE DOCTOR MAY NOT BE WILLING FOR THAT PLAN. PT CRIED AND STATES HE WILL DO A DRUG TEST EVERYDAY AND PROMISES NOT TO USE DRUGS. PT WANTS TO BE CLOSER TO HOME AND IF POSSIBLE, TRANSFER BACK TO THE HOSPITAL THAT SENT HIM HERE. CM INFORMED PT THAT CM WILL NOTIFY CONSERVATION POLICY ANALYST. PT IS AWARE THAT THE DOCTOR WILL BE ROUNDING LATER TODAY AND WILL DISCUSS HIS DESIRES WITH THE DOCTOR. CM SPOKE TO NEIL GUIDO, NOTIFIED OF PT'S REQUEST; CONSERVATION POLICY ANALYST ADVISED THAT PT'S REQUESTS ARE NOT OPTIONS FOR CARE AT THIS TIME. CM TO CONTINUE TO FOLLOW AND ASSIST NEEDED. Cholo White, CASE MANAGEMENT DCP- Discharge Planning Updated by [id number]: Cholo White on 05/24/18 3:[address] Patient Name: EDDIE DAVEY Admission Status: Urgent Accout number: [id number] Admission Date: 05-17-2018 : 1970 Admission Diagnosis:SHORTNESS OF BREATH Attending: ANA CHAVIRA Current LOS: 7 Anticipated DC Date: Planned Disposition: Home Primary Insurance: MEDICAID [place] Discharge Planning Comments: CM SPOKE TO PT AND SPOUSE IN ROOM AT PT'S REQUEST. EDDIE DAVEY provided verbal consent to discuss current and ongoing needs with/in the presence of: SPOUSE, DHEERAJ. PT HAS NO MEDICAL EQUIPMENT AT HOME AND PREFERS [facility] IF ANY IS NEEDED. PT HAS NOT ASSISTANCE AT HOME AND REPORTS LIVING AT HOME INDEPENDENTLY WITH HIS SPOUSE. PT REPORTS HISTORY OF DRUG USE IV AND THAT HE DID "SLIP UP ON SUPERBOWL TUESDAY AND SHOOT UP A LOAD." PT REPORTS THAT IT KILLED HIM AND HE IS NOT GOING TO EVER USE DRUGS AGAIN. PT REPORTS PLAN TO RETURN HOME WITH SPOUSE. PT REPORTS PLAN TO FILE FOR DISABILITY AND HAS BEEN DECLINED 3 TIMES FOR DISABILITY PREVIOUSLY. 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 CM EXPLAINED THAT ONCE A TREATMENT PLAN IS DEVELOPED, CM WOULD BE AVAILABLE TO ASSIST WITH ANY NEEDS. CM PROVIDED CM CONTACT INFORMATION TO PT AND HIS SPOUSE. CM TO FOLLOW AND ASSIST NEEDED. Executive Personal Assistant: Cholo White DCPIA - Discharge Planning Initial Assessment Updated by [id number]: Cholo White on 05/24/18 4:39 pm * Is the patient Alert and Oriented? Yes * How many steps to enter\\exit or inside your home? * PCP DR. JIMÉNEZ AT [facility] IN [place] * Pharmacy [facility] IN [place] * Preadmission Environment Home with Family * ADLs Independent * Equipment None * Other Equipment [facility] - PREFERRED EQUIPMENT PROVIDER * List name and contact numbers for known caregivers / representatives who currently or will assist patient after discharge: DHEERAJ DAVEY, SPOUSE, * Verbal permission to speak to the caregivers and representatives has been obtained from the patient. Yes * Community resources currently utilized None * Please name any agencies selected above. NONE * Additional services required to return to the preadmission environment? Yes * Can the patient safely return to the preadmission environment? Yes * Has this patient been hospitalized within the prior 30 days at any hospital? No External Providers External Provider: [facility] Next Contact Date: 05/30/2018 Service Request Date: Service Type: Resolution: Reviewer: Comments: Coverage Notice Reviewer: [id number] Jaqueline White Notice Issued Date-Time: 05/29/2018 16:59 Notice Type: Patient Choice Letter Notice Delivered To: Patient Relationship to Patient: Can Coverer Name: Delivery Method: HAND - Hand Delivered Susanne Days: Prior Verbal Notification: Recipient Understood Notice: Yes Recipient Signature: Yes Med Rec Note Co-signed by Attending: Coverage Notice Comment: 1- [facility] DEPT, 2- [facility] Last DP export: 05/30/18 7:56 a Patient Name: EDDIE DAVEY Page [id number] at 0903 All edits/amendments must be made on the electronic document DICTATION DATE: 05/30/18 09 SOFTWARE QUALITY SPECIALIST: JUSTINA 05/30/18 09 RPT#: [id number] DC DATE: STATUS: ADM IN [facility] [address] [place] [address] END OF REPORT
[2018-05-30 09:06] VITALS: BP 154/91
--- NOTE | 2018-05-30 09:38 | MORECARE ---
CASE MANAGEMENT DISCHARGE SUMMARY PATIENT: EDDIE DAVEY UNIT: [id number] ADM DATE: 05/17/18 AGE: 48 : 72 SEX: M ROOM/BED: D.2130 AUTHOR: RANJIT,DOC PHYSICIAN: REFERRING PHYSICIAN: ANA CHAVIRA MD DATE OF SERVICE: 05/30/18 Discharge Plan Patient Name: EDDIE DAVEY Facility: [facility]:[place] : 1970 Planned Disposition: Home with Home Health Anticipated Discharge Date: 05/30/18 Discharge Date: Expected LOS: 13 Initial Reviewer: [id number] Initial Review Date: 05/17/2018 Generated: 05/30/18 10:37 am Comments DCP- Discharge Planning Updated by [email or web address]: Cholo White on 05/29/18 4:[address] Patient Name: EDDIE DAVEY Encounter No: [id number] : 1970 Primary Insurance: MEDICAID [place] Anticipated DC Date: 05-30-2018 Planned Disposition: Home with Home Health External Planned Provider: TO BE DETERMINED DCP follow-up note: CM RECEIVED ORDER TO ARRANGE HOME HEALTH AND HOME IV INFUSION FOR DISCHARGE HOME. CM SPOKE TO PT AND SPOUSE IN ROOM, DISCUSSED DISCHARGE PLAN AND HOME HEALTH WELL HOME INFUSION COMPANIES. CM PROVIDED HOME HEALTH LISTING. PT SIGNED CHOICE FOR [address] [place] [address] [place] [address] HOME HEALTH. PT HAS NO PREFERENCE ON HOME INFUSION PROVIDER. CM TO ARRANGE HOME HEALTH WITH HOME INFUSION 05-30-18 FOR DISCHARGE HOME. HILDA Estrada DCP- Discharge Planning Updated by [email or web address]: Cholo White on 05/29/18 10:[address] Patient Name: EDDIE DAVEY Encounter No: [id number] : 1970 Primary Insurance: MEDICAID [place] Anticipated DC Date: Planned Disposition: Home DCP follow-up note: CM RECEIVED CALL FROM PT'S SPOUSE WHO ASKED THAT CM MEET WITH PT IN ROOM THIS MORNING REGARDING DISCHARGE PLANNING. CM MET WITH PT AND SPOUSE IN ROOM REQUESTED. PT TEARFULLY REQUESTED TO BE DISCHARGED HOME WITH OUTPATIENT IV ANTIBIOTICS. CM INFORMED PT THAT BASED ON HIS HISTORY OF IV DRUG USE, THE DOCTOR MAY NOT BE WILLING FOR THAT PLAN. PT CRIED AND STATES HE WILL DO A DRUG TEST EVERYDAY AND PROMISES NOT TO USE DRUGS. PT WANTS TO BE CLOSER TO HOME AND IF POSSIBLE, TRANSFER BACK TO THE HOSPITAL THAT SENT HIM HERE. CM INFORMED PT THAT CM WILL NOTIFY MANAGER DIGITAL AD OPERATIONS. PT IS AWARE THAT THE DOCTOR WILL BE ROUNDING LATER TODAY AND WILL DISCUSS HIS DESIRES WITH THE DOCTOR. CM SPOKE TO NEIL GUIDO, NOTIFIED OF PT'S REQUEST; MANAGER DIGITAL AD OPERATIONS ADVISED THAT PT'S REQUESTS ARE NOT OPTIONS FOR CARE AT THIS TIME. CM TO CONTINUE TO FOLLOW AND ASSIST NEEDED. Cholo White, CASE MANAGEMENT DCP- Discharge Planning Updated by [email or web address]: Cholo White on 05/24/18 3:[address] Patient Name: EDDIE DAVEY Admission Status: Urgent Accout number: [id number] Admission Date: 05-17-2018 : 1970 Admission Diagnosis:SHORTNESS OF BREATH Attending: ANA CHAVIRA Current LOS: 7 Anticipated DC Date: Planned Disposition: Home Primary Insurance: MEDICAID [place] Discharge Planning Comments: CM SPOKE TO PT AND SPOUSE IN ROOM AT PT'S REQUEST. EDDIE DAVEY provided verbal consent to discuss current and ongoing needs with/in the presence of: SPOUSE, DHEERAJ. PT HAS NO MEDICAL EQUIPMENT AT HOME AND PREFERS [facility] IF ANY IS NEEDED. PT HAS NOT ASSISTANCE AT HOME AND REPORTS LIVING AT HOME INDEPENDENTLY WITH HIS SPOUSE. PT REPORTS HISTORY OF DRUG USE IV AND THAT HE DID "SLIP UP ON SUPERBOWL TUESDAY AND SHOOT UP A LOAD." PT REPORTS THAT IT KILLED HIM AND HE IS NOT GOING TO EVER USE DRUGS AGAIN. PT REPORTS PLAN TO RETURN HOME WITH SPOUSE. PT REPORTS PLAN TO FILE FOR DISABILITY AND HAS BEEN DECLINED 3 TIMES FOR DISABILITY PREVIOUSLY. 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 CM EXPLAINED THAT ONCE A TREATMENT PLAN IS DEVELOPED, CM WOULD BE AVAILABLE TO ASSIST WITH ANY NEEDS. CM PROVIDED CM CONTACT INFORMATION TO PT AND HIS SPOUSE. CM TO FOLLOW AND ASSIST NEEDED. Mobility Architect Manager: Cholo White DCPIA - Discharge Planning Initial Assessment Updated by [email or web address]: Cholo White on 05/24/18 4:39 pm * Is the patient Alert and Oriented? Yes * How many steps to enter\\exit or inside your home? * PCP DR. JIMÉNEZ AT [facility] IN [place] * Pharmacy [facility] IN [place] * Preadmission Environment Home with Family * ADLs Independent * Equipment None * Other Equipment [facility] - [facility]REFERRED [facility]QUIP[facility] PROVIDER * List name and contact numbers for known caregivers / representatives who currently or will assist patient after discharge: DHEERAJ DAVEY, SPOUSE, * Verbal permission to speak to the caregivers and representatives has been obtained from the patient. Yes * Community resources currently utilized None * Please name any agencies selected above. NONE * Additional services required to return to the preadmission environment? Yes * Can the patient safely return to the preadmission environment? Yes * Has this patient been hospitalized within the prior 30 days at any hospital? No Coverage Notice Reviewer: [id number] Jaqueline White Notice Issued Date-Time: 05/29/2018 16:59 Notice Type: Patient Choice Letter Notice Delivered To: Patient Relationship to Patient: Electronic Publications Specialist Name: Delivery Method: HAND - Hand Delivered Susanne Days: Prior Verbal Notification: Recipient Understood Notice: Yes Recipient Signature: Yes Med Rec Note Co-signed by Attending: Coverage Notice Comment: [facility]- [facility], 2- [facility] Last DP export: 05/30/18 8:03 a Patient Name: EDDIE DAVEY Page 66037 at 0938 All edits/amendments must be made on the electronic document DICTATION DATE: 05/30/18936 CERTIFIED ORTHOTIC FITTER: JUSTINA 05/30/18936 RPT#: [id number] DC DATE: STATUS: ADM IN [facility] [address] [place] [address] END OF REPORT
--- NOTE | 2018-05-30 09:52 | MORECARE ---
CASE MANAGEMENT DISCHARGE SUMMARY PATIENT: EDDIE DAVEY UNIT: [id number] ADM DATE: 05/17/18 AGE: 48 : 72 SEX: M ROOM/BED: D.2130 AUTHOR: RANJIT,DOC PHYSICIAN: REFERRING PHYSICIAN: ANA CHAVIRA MD DATE OF SERVICE: 05/30/18 Discharge Plan Patient Name: EDDIE DAVEY Facility: [facility]:[place] : 1970 Planned Disposition: Home with Home Health Anticipated Discharge Date: 05/30/18 Discharge Date: Expected LOS: 13 Initial Reviewer: [id number] Initial Review Date: 05/17/2018 Generated: 05/30/18 10:52 am Comments DCP- Discharge Planning Updated by [email or web address]: Cholo White on 05/30/18 8:[address] Patient Name: EDDIE DAVEY Encounter No: [id number] : 1970 Primary Insurance: MEDICAID [place] Anticipated DC Date: 05-30-2018 Planned Disposition: Home with Home Health External Planned Providers: [facility]; [facility] DCP follow-up note: CM RECEIVED ORDER FOR NEBULIZER AND MEDICATIONS. CM SPOKE TO PT IN ROOM WHO REPORTS ALREADY HAVING NEBULIZER AT HOME AND NEEDED PRESCRIPTION TO FILL AT PHARMACY. PT REPORTS ABILITY TO AFFORD HIS NEBULIZER MEDICATIONS. CM DISCUSSED THAT [facility] HAS BOUGHT OUT [facility], PT REPORTS THEY REMAIN HIS FIRST CHOICE. PT WANTS TO GO HOME TODAY, FAMILY TO TRANSPORT. CM CALLED [facility], , SPOKE TO ANA, WHO TOOK REFERRAL AND WILL REVIEW AND LET CM KNOW IF THEY CAN MEET PT'S NEEDS. CM FAXED REFERRAL TO [facility] AT [phone]. CM CALLED [facility], , PROVIDED REFERRAL TO [facility]. [facility] PROVIDED [facility] WITH DR. MEDELLIN OFFICE AND PAGER NUMBER. CM FAXED REFERRAL TO [facility] AT [phone]. [facility] PLANS FOR PT TO HAVE LAST DOSE OF ANCEF AT HOSPITAL FOR 1500 HOURS. [facility] WILL DELIVER MEDICATIONS AND PROVIDE TEACHING TO PT AND SPOUSE PRIOR TO DISCHARGE HOME TODAY. CM WAITING FINAL ACCEPTANCE BY [facility]. HILDA Estrada DCP- Discharge Planning Updated by [email or web address]: Cholo White on 05/29/18 4:[address] Patient Name: EDDIE DAVEY Encounter No: [id number] : 1970 Primary Insurance: MEDICAID [place] Anticipated DC Date: 05-30-2018 Planned Disposition: Home with Home Health External Planned Provider: TO BE DETERMINED DCP follow-up note: CM RECEIVED ORDER TO ARRANGE HOME HEALTH AND HOME IV INFUSION FOR DISCHARGE HOME. CM SPOKE TO PT AND SPOUSE IN ROOM, DISCUSSED DISCHARGE PLAN AND HOME HEALTH WELL HOME INFUSION COMPANIES. CM PROVIDED HOME HEALTH LISTING. PT SIGNED CHOICE FOR [address] [place] [address] [place] [address] HOME HEALTH. PT HAS NO PREFERENCE ON HOME INFUSION PROVIDER. CM TO ARRANGE HOME HEALTH WITH HOME INFUSION 05-30-18 FOR DISCHARGE HOME. HILDA Estrada DCP- Discharge Planning Updated by [id number]: Cholo White on 05/29/18 10:[address] Patient Name: EDDIE DAVEY Encounter No: [id number] : 1970 Primary Insurance: MEDICAID [place] Anticipated DC Date: Planned Disposition: Home DCP follow-up note: CM RECEIVED CALL FROM PT'S SPOUSE WHO ASKED THAT CM MEET WITH PT IN ROOM THIS MORNING REGARDING DISCHARGE PLANNING. CM MET WITH PT AND SPOUSE IN ROOM REQUESTED. PT TEARFULLY REQUESTED TO BE DISCHARGED HOME WITH OUTPATIENT IV ANTIBIOTICS. CM INFORMED PT THAT BASED ON HIS HISTORY OF IV DRUG USE, THE DOCTOR MAY NOT BE WILLING FOR THAT PLAN. PT CRIED AND STATES HE WILL DO A DRUG TEST EVERYDAY AND PROMISES NOT TO USE DRUGS. PT WANTS TO BE CLOSER TO HOME AND IF POSSIBLE, TRANSFER BACK TO THE HOSPITAL THAT SENT HIM HERE. CM INFORMED PT THAT CM WILL NOTIFY STEM TEACHER. PT IS AWARE THAT THE DOCTOR WILL BE ROUNDING LATER TODAY AND WILL DISCUSS HIS DESIRES WITH THE DOCTOR. CHELO SPOKE TO NEIL GUIDO, NOTIFIED OF PT'S REQUEST; NEIL ADVISED THAT PT'S REQUESTS ARE NOT OPTIONS FOR CARE AT THIS TIME. CM TO CONTINUE TO FOLLOW AND ASSIST NEEDED. HILDA Estrada DCP- Discharge Planning Updated by [id number]: Cholo White on 05/24/18 3:[address] Patient Name: EDDIE DAVEY Admission Status: Urgent Accout number: [id number] Admission Date: 05-17-2018 : 1970 Admission Diagnosis:SHORTNESS OF BREATH Attending: ANA CHAVIRA Current LOS: 7 Anticipated DC Date: Planned Disposition: Home Primary Insurance: MEDICAID [place] Discharge Planning Comments: CM SPOKE TO PT AND SPOUSE IN ROOM AT PT'S REQUEST. EDDIE DAVEY provided verbal consent to discuss current and ongoing needs with/in the presence of: SPOUSE, DHEERAJ. PT HAS NO MEDICAL EQUIPMENT AT HOME AND PREFERS [facility] IF ANY IS NEEDED. PT HAS NOT ASSISTANCE AT HOME AND REPORTS LIVING AT HOME INDEPENDENTLY WITH HIS SPOUSE. PT REPORTS HISTORY OF DRUG USE IV AND THAT HE DID "SLIP UP ON SUPERBOWL TUESDAY AND SHOOT UP A LOAD." PT REPORTS THAT IT KILLED HIM AND HE IS NOT GOING TO EVER USE DRUGS AGAIN. PT REPORTS PLAN TO RETURN HOME WITH SPOUSE. PT REPORTS PLAN TO FILE FOR DISABILITY AND HAS BEEN DECLINED 3 TIMES FOR DISABILITY PREVIOUSLY. 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 CM EXPLAINED THAT ONCE A TREATMENT PLAN IS DEVELOPED, CM WOULD BE AVAILABLE TO ASSIST WITH ANY NEEDS. CM PROVIDED CM CONTACT INFORMATION TO PT AND HIS SPOUSE. CM TO FOLLOW AND ASSIST NEEDED. Director Of Home Care Hospice: Cholo White DCPIA - Discharge Planning Initial Assessment Updated by [id number]: Cholo White on 05/24/18 4:39 pm * Is the patient Alert and Oriented? Yes * How many steps to enter\\exit or inside your home? * PCP DR. JIMÉNEZ AT [facility] IN [place] * Pharmacy [facility] IN [place] * Preadmission Environment Home with Family * ADLs Independent * Equipment None * Other Equipment [facility] - PREFERRED EQUIPMENT PROVIDER * List name and contact numbers for known caregivers / representatives who currently or will assist patient after discharge: DHEERAJ DAVEY, SPOUSE, * Verbal permission to speak to the caregivers and representatives has been obtained from the patient. Yes * Community resources currently utilized None * Please name any agencies selected above. NONE * Additional services required to return to the preadmission environment? Yes * Can the patient safely return to the preadmission environment? Yes * Has this patient been hospitalized within the prior 30 days at any hospital? No Coverage Notice Reviewer: [id number] - Cholo White Notice Issued Date-Time: 05/29/2018 16:59 Notice Type: Patient Choice Letter Notice Delivered To: Patient Relationship to Patient: Correction Lieutenant Name: Delivery Method: HAND - Hand Delivered Susanne Days: Prior Verbal Notification: Recipient Understood Notice: Yes Recipient Signature: Yes Med Rec Note Co-signed by Attending: Coverage Notice Comment: 1- [facility] DEPT, 2- [facility] Last DP export: 05/30/18 8:37 a Patient Name: EDDIE DAVEY Page 31132 at 0952 All edits/amendments must be made on the electronic document DICTATION DATE: 05/30/18951 MILITARY PAY CLERK: JUSTINA 05/30/18951 RPT#: [id number] DC DATE: STATUS: ADM IN [facility] [address] [place] [address] END OF REPORT
[2018-05-30] MEDS ORDERED: Ancef 2 GM/Dextrose IV (12:39)
[2018-05-30] MEDS ORDERED: LASIX40 MG PO (12:39)
[2018-05-30] MEDS ORDERED: THERMOTABS 1 GM1 GM PO (12:40)
[2018-05-30] MEDS ORDERED: ATROVENT 0.02%2.5 ML UPD (12:40)
[2018-05-30] MEDS ORDERED: PROTONIX40 MG PO (12:40)
[2018-05-30] MEDS ORDERED: PULMICORT0.5 MG/21 UPD (12:40)
[2018-05-30 12:49] VITALS: BP 153/98
--- NOTE | 2018-05-30 12:49 | MORECARE ---
CASE MANAGEMENT DISCHARGE SUMMARY PATIENT: EDDIE DAVEY UNIT: [id number] ADM DATE: 05/17/18 AGE: 48 : 72 SEX: M ROOM/BED: D.2130 AUTHOR: RANJIT,DOC PHYSICIAN: REFERRING PHYSICIAN: ANA CHAVIRA MD DATE OF SERVICE: 05/30/18 Discharge Plan Patient Name: EDDIE DAVEY Facility: [facility]:[place] : 1970 Planned Disposition: Home with Home Health Anticipated Discharge Date: 05/30/18 Discharge Date: Expected LOS: 13 Initial Reviewer: [id number] Initial Review Date: 05/17/2018 Generated: 05/30/18 1:49 pm Comments DCP- Discharge Planning Updated by DIEGO: Cholo White on 05/30/18 11:[address] Patient Name: EDDIE DAVEY Encounter No: [id number] : 1970 Primary Insurance: [place] Anticipated DC Date: 05-30-2018 Planned Disposition: Home with Home Health External Planned Providers: [facility] [place] OFFICE; [facility] DCP follow-up note: CM RECEIVED ORDER FOR NEBULIZER AND MEDICATIONS. CM SPOKE TO PT IN ROOM WHO REPORTS ALREADY HAVING NEBULIZER AT HOME AND NEEDED PRESCRIPTION TO FILL AT PHARMACY. PT REPORTS ABILITY TO AFFORD HIS NEBULIZER MEDICATIONS. CM DISCUSSED THAT [facility] HAS BOUGHT OUT [facility], PT REPORTS THEY REMAIN HIS FIRST CHOICE. PT WANTS TO GO HOME TODAY, FAMILY TO TRANSPORT. CM CALLED [facility], , SPOKE TO ANA, WHO TOOK REFERRAL AND WILL REVIEW AND LET CM KNOW IF THEY CAN MEET PT'S NEEDS. CM FAXED REFERRAL TO [place] AT [phone]. CM CALLED [facility], , PROVIDED REFERRAL TO [facility]. CM PROVIDED [facility] WITH DR. MEDELLIN OFFICE AND PAGER NUMBER. CM FAXED REFERRAL TO [facility] AT [phone]. KIERRA PLANS FOR PT TO HAVE LAST DOSE OF ANCEF AT HOSPITAL FOR 1500 HOURS. [facility] WILL DELIVER MEDICATIONS AND PROVIDE TEACHING TO PT AND SPOUSE PRIOR TO DISCHARGE HOME TODAY. CM WAITING FINAL ACCEPTANCE BY [facility]. Cholo White, CASE MANAGEMENT Appended by Cholo White on 05/30/2018 12:43 PHARMACEUTICAL ASSISTANT: KIERRA PLANS FOR PT TO HAVE LAST DOSE OF ANCEF AT HOSPITAL FOR 1730 HOURS. [facility] WILL DELIVER MEDICATIONS AND PROVIDE TEACHING TO PT AND SPOUSE PRIOR TO DISCHARGE HOME TODAY. CHELO RECEIVED CALL FROM ANA BAIRD [place], [facility] IN [place] TO ACCEPT PATIENT FOR HOME FOLLOW UP. FOR DISCHARGE AFTER 1730 INFUSION TODAY, FAX DISCHARGE INFORMATION TO [facility] AT [phone]. NOTIFY JASWINDER OF DISCHARGE AT [phone]. Cholo White CASE MANAGEMENT DCP- Discharge Planning Updated by [id number]: Cholo White on 05/29/18 4:[address] Patient Name: EDDIE DAVEY Encounter No: [id number] : 1970 Primary Insurance: MEDICAID [place] Anticipated DC Date: 05-30-2018 Planned Disposition: Home with Home Health External Planned Provider: TO BE DETERMINED DCP follow-up note: CM RECEIVED ORDER TO ARRANGE HOME HEALTH AND HOME IV INFUSION FOR DISCHARGE HOME. CM SPOKE TO PT AND SPOUSE IN ROOM, DISCUSSED DISCHARGE PLAN AND HOME HEALTH WELL HOME INFUSION COMPANIES. CM PROVIDED HOME HEALTH LISTING. PT SIGNED CHOICE FOR [address] [place] [address] [place] [address] HOME HEALTH. PT HAS NO PREFERENCE ON HOME INFUSION PROVIDER. CM TO ARRANGE HOME HEALTH WITH HOME INFUSION 05-30-18 FOR DISCHARGE HOME. HILDA Estrada MANAGEMENT DCP- Discharge Planning Updated by [id number]: Cholo White on 05/29/18 10:[address] Patient Name: EDDIE DAVEY Encounter No: [id number] : 1970 Primary Insurance: MED[place]ID [place] Anticipated DC Date: Planned Disposition: Home DCP follow-up note: CM RECEIVED CALL FROM PT'S SPOUSE WHO ASKED THAT CM MEET WITH PT IN ROOM THIS MORNING REGARDING DISCHARGE PLANNING. CM MET WITH PT AND SPOUSE IN ROOM REQUESTED. PT TEARFULLY REQUESTED TO BE DISCHARGED HOME WITH OUTPATIENT IV ANTIBIOTICS. CM INFORMED PT THAT BASED ON HIS HISTORY OF IV DRUG USE, THE DOCTOR MAY NOT BE WILLING FOR THAT PLAN. PT CRIED AND STATES HE WILL DO A DRUG TEST EVERYDAY AND PROMISES NOT TO USE DRUGS. PT WANTS TO BE CLOSER TO HOME AND IF POSSIBLE, TRANSFER BACK TO THE HOSPITAL THAT SENT HIM HERE. CM INFORMED PT THAT CM WILL NOTIFY MOLD PULLER. PT IS AWARE THAT THE DOCTOR WILL BE ROUNDING LATER TODAY AND WILL DISCUSS HIS DESIRES WITH THE DOCTOR. CM SPOKE TO NEIL GUIDO, NOTIFIED OF PT'S REQUEST; MOLD PULLER ADVISED THAT PT'S REQUESTS ARE NOT OPTIONS FOR CARE AT THIS TIME. CM TO CONTINUE TO FOLLOW AND ASSIST NEEDED. Cholo White, CASE MANAGEMENT DCP- Discharge Planning Updated by [id number]: Cholo White on 05/24/18 3:[address] Patient Name: EDDIE DAVEY Admission Status: Urgent Accout number: [id number] Admission Date: 05-17-2018 : 1970 Admission Diagnosis:SHORTNESS OF BREATH Attending: ANA CHAVIRA Current LOS: 7 Anticipated DC Date: Planned Disposition: Home Primary Insurance: [place] Discharge Planning Comments: CM SPOKE TO PT AND SPOUSE IN ROOM AT PT'S REQUEST. EDDIE DAVEY provided verbal consent to discuss current and ongoing needs with/in the presence of: SPOUSE, DHEERAJ. PT HAS NO MEDICAL EQUIPMENT AT HOME AND PREFERS [facility] IF ANY IS NEEDED. PT HAS NOT ASSISTANCE AT HOME AND REPORTS LIVING AT HOME INDEPENDENTLY WITH HIS SPOUSE. PT REPORTS HISTORY OF DRUG USE IV AND THAT HE DID "SLIP UP ON [employer] TUESDAY AND SHOOT UP A LOAD." PT REPORTS THAT IT KILLED HIM AND HE IS NOT GOING TO EVER USE DRUGS AGAIN. PT REPORTS PLAN TO RETURN HOME WITH SPOUSE. PT REPORTS PLAN TO FILE FOR DISABILITY AND HAS BEEN DECLINED 3 TIMES FOR DISABILITY PREVIOUSLY. 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 CM EXPLAINED THAT ONCE A TREATMENT PLAN IS DEVELOPED, CM WOULD BE AVAILABLE TO ASSIST WITH ANY NEEDS. CM PROVIDED CM CONTACT INFORMATION TO PT AND HIS SPOUSE. CM TO FOLLOW AND ASSIST NEEDED. Skinning Machine Feeder: Cholo White DCPIA - Discharge Planning Initial Assessment Updated by [id number]: Cholo White on 05/24/18 4:39 pm * Is the patient Alert and Oriented? Yes * How many steps to enter\\exit or inside your home? * PCP DR. JIMÉNEZ AT [facility] IN [place] * Pharmacy [facility] IN [place] * Preadmission Environment Home with Family * ADLs Independent * Equipment None * Other Equipment [facility] - PREFERRED EQUIPMENT PROVIDER * List name and contact numbers for known caregivers / representatives who currently or will assist patient after discharge: DHEERAJ DAVEY, SPOUSE, * Verbal permission to speak to the caregivers and representatives has been obtained from the patient. Yes * Community resources currently utilized None * Please name any agencies selected above. NONE * Additional services required to return to the preadmission environment? Yes * Can the patient safely return to the preadmission environment? Yes * Has this patient been hospitalized within the prior 30 days at any hospital? No Coverage Notice Reviewer: [id number] Jaqueline White Notice Issued Date-Time: 05/29/2018 16:59 Notice Type: Patient Choice Letter Notice Delivered To: Patient Relationship to Patient: Director Life Sciences Name: Delivery Method: HAND - Hand Delivered Susanne Days: Prior Verbal Notification: Recipient Understood Notice: Yes Recipient Signature: Yes Med Rec Note Co-signed by Attending: Coverage Notice Comment: 1- [facility] DEPT, 2- [facility] Last DP export: 05/30/18 8:52 a Patient Name: EDDIE DAVEY Page 11249 at 1249 All edits/amendments must be made on the electronic document DICTATION DATE: 05/30/18 1248 RANGER AIDE: JUSTINA 05/30/18 1248 RPT#: [id number] DC DATE: STATUS: ADM IN [facility] [address] [place] [address] END OF REPORT
--- NOTE | 2018-05-30 14:02 | NUR ---
ART BS. CALL LIGHT IN REACH. REVIEWED AND AGREE WITH ASSISMENT.
--- NOTE | 2018-05-30 14:51 | TEE ---
PATIENT:EDDIE DAVEY MEDICAL RECORD: [id number] LOCATION:D. 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 Ao 229 AV Gradient Peak 21.04 AV Mean 12.23AV Area 2.0 MV Gradient Peak 7.08 MV Mean 3.59 MV Area INTERPRETATION: Doppler: 2-D: VEG NOTED ON TRICUSPID VALVE. COLOR FLOW DOPPLER NORMAL SALINE STUDY: MISCELLANOUS: DIAGNOSIS: PLAN: Supply Teacher:3 Dr. Torres Senior Staff Accountant: Oriana SCHWARZ COMMENTS: DATE OF SERVICE: 05/23/2018 After general sedation via TIVA via anesthesia, transesophageal Omniplane probe placed in to esophagus, proximal stomach without difficulty. FINDINGS: LVH. LV internal dimensions are normal. Wall motion is normal. EF is greater than 55%. Aortic valve is tricuspid with good valve excursion. No evidence of vegetation. Trivial AI. Left atrium is normal. Left atrial appendage well visualized with no evidence of thrombus. Mitral valve is well TRANSESOPHAGEAL ECHOCARDIOGRAM REPORT [id number] EDDIE DAVEY visualized. This was normal with normal apparatus and trivial MR. Right-sided chambers appear normal. Tricuspid valve is well visualized. This has an approximately 3 cm x 1 cm vegetation. There is only mild TR currently. TRANSINT:[id number] Voice Confirmation ID: [id number] DOCUMENT ID: [id number] at 1451 CC: [id number] DICTATION DATE: 05/23/18 1438 SOFTWARE SYSTEMS ARCHITECT: 05/24/18 0453 ADM IN [place] [id number] [place] [address]
--- NOTE | 2018-05-30 15:48 | NUR ---
URINE COLLECTED AND SENT TO LAB FOR UDS, I WITNESSED THE PT URINATE INTO THE SPECIMAN CUP.
--- NOTE | 2018-05-30 16:02 | MORECARE ---
CASE MANAGEMENT DISCHARGE SUMMARY PATIENT: EDDIE DAVEY UNIT: [id number] ADM DATE: 05/17/18 AGE: 48 : 72 SEX: M ROOM/BED: D.2130 AUTHOR: RANJIT,DOC PHYSICIAN: REFERRING PHYSICIAN: ANA CHAVIRA MD DATE OF SERVICE: 05/30/18 Discharge Plan Patient Name: EDDIE DAVEY Facility: [facility]:[place] : 1970 Planned Disposition: Home with Home Health Anticipated Discharge Date: 05/31/18 Discharge Date: Expected LOS: 14 Initial Reviewer: [id number] Initial Review Date: 05/17/2018 Generated: 05/30/18 5:02 pm Comments DCP- Discharge Planning Updated by [id number]: Cholo White on 05/30/18 11:[address] Patient Name: EDDIE DAVEY Encounter No: [id number] : 1970 Primary Insurance: MED[place]ID [place] Anticipated DC Date: 05-30-2018 Planned Disposition: Home with Home Health External Planned Providers: [facility] [place] OFFICE; [facility] DCP follow-up note: CM RECEIVED ORDER FOR NEBULIZER AND MEDICATIONS. CM SPOKE TO PT IN ROOM WHO REPORTS ALREADY HAVING NEBULIZER AT HOME AND NEEDED PRESCRIPTION TO FILL AT PHARMACY. PT REPORTS ABILITY TO AFFORD HIS NEBULIZER MEDICATIONS. CM DISCUSSED THAT [facility] HAS BOUGHT OUT [facility], PT REPORTS THEY REMAIN HIS FIRST CHOICE. PT WANTS TO GO HOME TODAY, FAMILY TO TRANSPORT. CM CALLED [facility], , SPOKE TO ANA, WHO TOOK REFERRAL AND WILL REVIEW AND LET CM KNOW IF THEY CAN MEET PT'S NEEDS. CM FAXED REFERRAL TO [facility] AT [phone]. CM CALLED [facility], , PROVIDED REFERRAL TO [facility]. CM PROVIDED [facility] WITH DR. MEDELLIN OFFICE AND PAGER NUMBER. CM FAXED REFERRAL TO [facility] AT [phone]. KIERRA PLANS FOR PT TO HAVE LAST DOSE OF ANCEF AT HOSPITAL FOR 1500 HOURS. [facility] WILL DELIVER MEDICATIONS AND PROVIDE TEACHING TO PT AND SPOUSE PRIOR TO DISCHARGE HOME TODAY. CM WAITING FINAL ACCEPTANCE BY [facility]. Cholo White, CASE MANAGEMENT Appended by Chool White on 05/30/2018 12:43 TALENT PROGRAM MANAGER: KIERRA PLANS FOR PT TO HAVE LAST DOSE OF ANCEF AT HOSPITAL FOR 1730 HOURS. [facility] WILL DELIVER MEDICATIONS AND PROVIDE TEACHING TO PT AND SPOUSE PRIOR TO DISCHARGE HOME TODAY. CHELO RECEIVED CALL FROM ANA BAIRD [place], [facility] IN [place] TO ACCEPT PATIENT FOR HOME FOLLOW UP. FOR DISCHARGE AFTER 1730 INFUSION TODAY, FAX DISCHARGE INFORMATION TO [facility] AT [phone]. NOTIFY JASWINDER OF DISCHARGE AT [phone]. Cholo White CASE MANAGEMENT DCP- Discharge Planning Updated by [id number]: Cholo White on 05/29/18 4:[address] Patient Name: EDDIE DAVEY Encounter No: [id number] : 1970 Primary Insurance: MED[place]ID [place] Anticipated DC Date: 05-30-2018 Planned Disposition: Home with Home Health External Planned Provider: TO BE DETERMINED DCP follow-up note: CM RECEIVED ORDER TO ARRANGE HOME HEALTH AND HOME IV INFUSION FOR DISCHARGE HOME. CM SPOKE TO PT AND SPOUSE IN ROOM, DISCUSSED DISCHARGE PLAN AND HOME HEALTH WELL HOME INFUSION COMPANIES. CM PROVIDED HOME HEALTH LISTING. PT SIGNED CHOICE FOR [address] [place] [address] [place] [address] HOME HEALTH. PT HAS NO PREFERENCE ON HOME INFUSION PROVIDER. CM TO ARRANGE HOME HEALTH WITH HOME INFUSION 05-30-18 FOR DISCHARGE HOME. HILDA Estrada MANAGEMENT DCP- Discharge Planning Updated by [id number]: Cholo White on 05/29/18 10:[address] Patient Name: EDDIE DAVEY Encounter No: [id number] : 1970 Primary Insurance: MED[place]ID [place] Anticipated DC Date: Planned Disposition: Home DCP follow-up note: CM RECEIVED CALL FROM PT'S SPOUSE WHO ASKED THAT CM MEET WITH PT IN ROOM THIS MORNING REGARDING DISCHARGE PLANNING. CM MET WITH PT AND SPOUSE IN ROOM REQUESTED. PT TEARFULLY REQUESTED TO BE DISCHARGED HOME WITH OUTPATIENT IV ANTIBIOTICS. CM INFORMED PT THAT BASED ON HIS HISTORY OF IV DRUG USE, THE DOCTOR MAY NOT BE WILLING FOR THAT PLAN. PT CRIED AND STATES HE WILL DO A DRUG TEST EVERYDAY AND PROMISES NOT TO USE DRUGS. PT WANTS TO BE CLOSER TO HOME AND IF POSSIBLE, TRANSFER BACK TO THE HOSPITAL THAT SENT HIM HERE. CM INFORMED PT THAT CM WILL NOTIFY DIRECTOR INFORMATION. PT IS AWARE THAT THE DOCTOR WILL BE ROUNDING LATER TODAY AND WILL DISCUSS HIS DESIRES WITH THE DOCTOR. CM SPOKE TO NEIL GUIDO, NOTIFIED OF PT'S REQUEST; DIRECTOR INFORMATION ADVISED THAT PT'S REQUESTS ARE NOT OPTIONS FOR CARE AT THIS TIME. CM TO CONTINUE TO FOLLOW AND ASSIST NEEDED. Cholo White, CASE MANAGEMENT DCP- Discharge Planning Updated by [id number]: Cholo White on 05/24/18 3:[address] Patient Name: EDDIE DAVEY Admission Status: Urgent Accout number: [id number] Admission Date: 05-17-2018 : 1970 Admission Diagnosis:SHORTNESS OF BREATH Attending: ANA CHAVIRA Current LOS: 7 Anticipated DC Date: Planned Disposition: Home Primary Insurance: MED[place]ID [place] Discharge Planning Comments: CM SPOKE TO PT AND SPOUSE IN ROOM AT PT'S REQUEST. EDDIE DAVEY provided verbal consent to discuss current and ongoing needs with/in the presence of: SPOUSE, DHEERAJ. PT HAS NO MEDICAL EQUIPMENT AT HOME AND PREFERS [facility] IF ANY IS NEEDED. PT HAS NOT ASSISTANCE AT HOME AND REPORTS LIVING AT HOME INDEPENDENTLY WITH HIS SPOUSE. PT REPORTS HISTORY OF DRUG USE IV AND THAT HE DID "SLIP UP ON LyxiaBOWL TUESDAY AND SHOOT UP A LOAD." PT REPORTS THAT IT KILLED HIM AND HE IS NOT GOING TO EVER USE DRUGS AGAIN. PT REPORTS PLAN TO RETURN HOME WITH SPOUSE. PT REPORTS PLAN TO FILE FOR DISABILITY AND HAS BEEN DECLINED 3 TIMES FOR DISABILITY PREVIOUSLY. 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 CM EXPLAINED THAT ONCE A TREATMENT PLAN IS DEVELOPED, CM WOULD BE AVAILABLE TO ASSIST WITH ANY NEEDS. CM PROVIDED CM CONTACT INFORMATION TO PT AND HIS SPOUSE. CM TO FOLLOW AND ASSIST NEEDED. Grad Intern: Cholo White DCPIA - Discharge Planning Initial Assessment Updated by [id number]: Cholo White on 05/24/18 4:39 pm * Is the patient Alert and Oriented? Yes * How many steps to enter\\exit or inside your home? * PCP DR. JIMÉNEZ AT [facility] IN [place] * Pharmacy [facility] IN [place] * Preadmission Environment Home with Family * ADLs Independent * Equipment None * Other Equipment [facility] - PREFERRED EQUIPMENT PROVIDER * List name and contact numbers for known caregivers / representatives who currently or will assist patient after discharge: DHEERAJ DAVEY, SPOUSE, * Verbal permission to speak to the caregivers and representatives has been obtained from the patient. Yes * Community resources currently utilized None * Please name any agencies selected above. NONE * Additional services required to return to the preadmission environment? Yes * Can the patient safely return to the preadmission environment? Yes * Has this patient been hospitalized within the prior 30 days at any hospital? No External Providers External Provider: [facility] [facility] Next Contact Date: 05/31/2018 Service Request Date: Service Type: Resolution: Reviewer: Comments: Coverage Notice Reviewer: [id number] - Cholo White Notice Issued Date-Time: 05/29/2018 16:59 Notice Type: Patient Choice Letter Notice Delivered To: Patient Relationship to Patient: Appliance Line Assembler Name: Delivery Method: HAND - Hand Delivered Susanne Days: Prior Verbal Notification: Recipient Understood Notice: Yes Recipient Signature: Yes Med Rec Note Co-signed by Attending: Coverage Notice Comment: 1- [facility] DEPT, 2- [facility] Last DP export: 05/30/18 11:49 a Patient Name: EDDIE DAVEY Page [id number] at 1602 All edits/amendments must be made on the electronic document DICTATION DATE: 05/30/181601 AIRFIELD DEFENCE GUARD: JUSTINA 05/30/181601 RPT#: [id number] DC DATE: STATUS: ADM IN [facility] [address] [place] [address] END OF REPORT
[2018-05-30 16:09] LABS: UDS - AMPHET NEGATIVE QUAL (NEGATIVE); UDS - BARB NEGATIVE QUAL (NEGATIVE); UDS - BENZO NEGATIVE QUAL (NEGATIVE); UDS - COCAINE NEGATIVE QUAL (NEGATIVE); UDS - OPIATE POSITIVE QUAL (NEGATIVE); UDS - PCP NEGATIVE QUAL (NEGATIVE); UDS - THC NEGATIVE QUAL (NEGATIVE)
--- NOTE | 2018-05-30 16:19 | MORECARE ---
CASE MANAGEMENT DISCHARGE SUMMARY PATIENT: EDDIE DAVEY UNIT: [id number] ADM DATE: 05/17/18 AGE: 48 : 72 SEX: M ROOM/BED: D.2130 AUTHOR: RANJIT,DOC PHYSICIAN: REFERRING PHYSICIAN: ANA CHAVIRA MD DATE OF SERVICE: 05/30/18 Discharge Plan Patient Name: EDDIE DAVEY Facility: [facility]:[place] : 1970 Planned Disposition: Home with Home Health Anticipated Discharge Date: 05/31/18 Discharge Date: Expected LOS: 14 Initial Reviewer: [id number] Initial Review Date: 05/17/2018 Generated: 05/30/18 5:18 pm Comments DCP- Discharge Planning Updated by [id number]: Cholo White on 05/30/18 3:[address] Patient Name: EDDIE DAVEY Encounter No: [id number] : 1970 Primary Insurance: MEDICAID [place] Anticipated DC Date: 05-31-2018 Planned Disposition: Home with Home Health External Planned Provider: [facility]; [facility] DCP follow-up note: CM RECEIVED CALL FROM [facility] WHO INFORMED CM THAT THEIR PHARMACISTS WILL NOT ACCEPT PT. CM NOTIFIED NEIL GUIDO. CM CALLED HOME INF[facility]ION SERVICES / [facility], , SPOKE TO MARNIE WHO WILL CHECK WITH PHARMACY AND RISK MANAGEMENT TO SEE IF THEY WILL CONSIDER PT. CM RECEIVED CALL BACK AND THEY WILL ACCEPT IF PT HAS DRUG TESTING AND RANDOM DRUG SCREENING DURING PROCESS. KARLA WILL HAVE TO MEET WITH PT AND HAVE HIM SIGN AGREEMENT TO NOT USE IV DRUGS AND DELIVER MEDICATIONS WELL PROVIDE TEACHING TO PT AND SPOUSE PRIOR TO DISCHARGE HOME TOMORROW CM NOTIFIED PT AND DR. YUSUF IN ROOM. CM NOTIFIED NEIL GUIDO AND RECEIVED ORDER FOR DRUG TESTING TODAY. CM WAITING HOME [facility] / [facility], TO MEET WITH PT TOMORROW AND DELIVER MEDICATIONS FOR PT'S DISCHARGE HOME TOMORROW. [facility] IN [place] TO ACCEPT PATIENT FOR HOME FOLLOW UP. CM NOTIFIED [facility] OF PT'S PLANNED DISCHARGE TOMORROW. FOR DISCHARGE 05-31-18 AFTER ARRANGEMENTS COMPLETED BY HOME INF[facility] SERVICES / [facility], FAX DISCHARGE INFORMATION TO [facility] AT [phone]. NOTIFY [facility] OF DISCHARGE AT [phone]. HILDA Estrada DCP- Discharge Planning Updated by [id number]: Cholo White on 05/30/18 11:[address] Patient Name: EDDIE DAVEY Encounter No: [id number] : 1970 Primary Insurance: MEDICAID [facility] [place] Date: 05-30-2018 Planned Disposition: Home with Home Health External Planned Providers: [facility]; [facility] DCP follow-up note: CM RECEIVED ORDER FOR NEBULIZER AND MEDICATIONS. CM SPOKE TO PT IN ROOM WHO REPORTS ALREADY HAVING NEBULIZER AT HOME AND NEEDED PRESCRIPTION TO FILL AT PHARMACY. PT REPORTS ABILITY TO AFFORD HIS NEBULIZER MEDICATIONS. CM DISCUSSED THAT [facility] HAS BOUGHT OUT [facility], PT REPORTS THEY REMAIN HIS FIRST CHOICE. PT WANTS TO GO HOME TODAY, FAMILY TO TRANSPORT. CM CALLED [facility], , SPOKE TO ANA, WHO TOOK REFERRAL AND WILL REVIEW AND LET CM KNOW IF THEY CAN MEET PT'S NEEDS. CM FAXED REFERRAL TO [facility] AT [phone]. CM CALLED [facility], , PROVIDED REFERRAL TO RUTHIE. CM PROVIDED RUTHIE WITH DR. MEDELLIN OFFICE AND PAGER NUMBER. CM FAXED REFERRAL TO [facility] AT [phone]. KIERRA PLANS FOR PT TO HAVE LAST DOSE OF ANCEF AT HOSPITAL FOR 1500 HOURS. [facility] WILL DELIVER MEDICATIONS AND PROVIDE TEACHING TO PT AND SPOUSE PRIOR TO DISCHARGE HOME TODAY. CM WAITING FINAL ACCEPTANCE BY [facility]. hColo White, CASE MANAGEMENT Appended by Cholo White on 05/30/2018 12:43 BOILER COVERER: KIERRA PLANS FOR PT TO HAVE LAST DOSE OF ANCEF AT HOSPITAL FOR 1730 HOURS. [facility] WILL DELIVER MEDICATIONS AND PROVIDE TEACHING TO PT AND SPOUSE PRIOR TO DISCHARGE HOME TODAY. CHELO RECEIVED CALL FROM ANA OF [facility] IN [place] TO ACCEPT PATIENT FOR HOME FOLLOW UP. FOR DISCHARGE AFTER 1730 INFUSION TODAY, FAX DISCHARGE INFORMATION TO [facility] AT [phone]. NOTIFY [facility] OF DISCHARGE AT [phone]. Cholo La Luisa, CASE MANAGEMENT DCP- Discharge Planning Updated by [id number]: Cholo White on 05/29/18 4:[address] Patient Name: EDDIE DAVEY Encounter No: [id number] : 1970 Primary Insurance: MEDICAID [place] Anticipated DC Date: 05-30-2018 Planned Disposition: Home with Home Health External Planned Provider: TO BE DETERMINED DCP follow-up note: CM RECEIVED ORDER TO ARRANGE HOME HEALTH AND HOME IV INFUSION FOR DISCHARGE HOME. CM SPOKE TO PT AND SPOUSE IN ROOM, DISCUSSED DISCHARGE PLAN AND HOME HEALTH WELL HOME INFUSION COMPANIES. CM PROVIDED HOME HEALTH LISTING. PT SIGNED CHOICE FOR [address] [place] [address] AND [address] [place] [address] HOME HEALTH. PT HAS NO PREFERENCE ON HOME INFUSION PROVIDER. CM TO ARRANGE HOME HEALTH WITH HOME INFUSION 05-30-18 FOR DISCHARGE HOME. Cholo White CASE MANAGEMENT DCP- Discharge Planning Updated by [id number]: Cholo White on 05/29/18 10:[address] Patient Name: EDDIE DAVEY Encounter No: [id number] : 1970 Primary Insurance: MEDICAID [place] Anticipated DC Date: Planned Disposition: Home DCP follow-up note: CM RECEIVED CALL FROM PT'S SPOUSE WHO ASKED THAT CM MEET WITH PT IN ROOM THIS MORNING REGARDING DISCHARGE PLANNING. CM MET WITH PT AND SPOUSE IN ROOM REQUESTED. PT TEARFULLY REQUESTED TO BE DISCHARGED HOME WITH OUTPATIENT IV ANTIBIOTICS. CM INFORMED PT THAT BASED ON HIS HISTORY OF IV DRUG USE, THE DOCTOR MAY NOT BE WILLING FOR THAT PLAN. PT CRIED AND STATES HE WILL DO A DRUG TEST EVERYDAY AND PROMISES NOT TO USE DRUGS. PT WANTS TO BE CLOSER TO HOME AND IF POSSIBLE, TRANSFER BACK TO THE HOSPITAL THAT SENT HIM HERE. CM INFORMED PT THAT CM WILL NOTIFY ENGRAVING OPERATOR. PT IS AWARE THAT THE DOCTOR WILL BE ROUNDING LATER TODAY AND WILL DISCUSS HIS DESIRES WITH THE DOCTOR. CHELO SPOKE TO NEIL GUIDO, NOTIFIED OF PT'S REQUEST; NEIL ADVISED THAT PT'S REQUESTS ARE NOT OPTIONS FOR CARE AT THIS TIME. CM TO CONTINUE TO FOLLOW AND ASSIST NEEDED. Cholo White CASE MANAGEMENT DCP- Discharge Planning Updated by [id number]: Cholo White on 05/24/18 3:[address] Patient Name: EDDIE DAVEY Admission Status: Urgent Accout number: [id number] Admission Date: 05-17-2018 : 1970 Admission Diagnosis:SHORTNESS OF BREATH Attending: ANA CHAVIRA Current LOS: 7 Anticipated DC Date: Planned Disposition: Home Primary Insurance: MEDICAID [place] Discharge Planning Comments: CM SPOKE TO PT AND SPOUSE IN ROOM AT PT'S REQUEST. EDDIE DAVEY provided verbal consent to discuss current and ongoing needs with/in the presence of: SPOUSE, DHEERAJ. PT HAS NO MEDICAL EQUIPMENT AT HOME AND PREFERS [facility] IF ANY IS NEEDED. PT HAS NOT ASSISTANCE AT HOME AND REPORTS LIVING AT HOME INDEPENDENTLY WITH HIS SPOUSE. PT REPORTS HISTORY OF DRUG USE IV AND THAT HE DID "SLIP UP ON SUPERBOWL TUESDAY AND SHOOT UP A LOAD." PT REPORTS THAT IT KILLED HIM AND HE IS NOT GOING TO EVER USE DRUGS AGAIN. PT REPORTS PLAN TO RETURN HOME WITH SPOUSE. PT REPORTS PLAN TO FILE FOR DISABILITY AND HAS BEEN DECLINED 3 TIMES FOR DISABILITY PREVIOUSLY. 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 CM EXPLAINED THAT ONCE A TREATMENT PLAN IS DEVELOPED, CM WOULD BE AVAILABLE TO ASSIST WITH ANY NEEDS. CM PROVIDED CM CONTACT INFORMATION TO PT AND HIS SPOUSE. CM TO FOLLOW AND ASSIST NEEDED. Bicycle I Assembler: Cholo White DCPIA - Discharge Planning Initial Assessment Updated by [id number]: Cholo White on 05/24/18 4:39 pm * Is the patient Alert and Oriented? Yes * How many steps to enter\\exit or inside your home? * PCP DR. JIMÉNEZ AT [facility] IN [place] * Pharmacy [facility] IN [place] * Preadmission Environment Home with Family * ADLs Independent * Equipment None * Other Equipment [facility] - PREFERRED EQUIPMENT PROVIDER * List name and contact numbers for known caregivers / representatives who currently or will assist patient after discharge: DHEERAJ DAVEY, SPOUSE, * Verbal permission to speak to the caregivers and representatives has been obtained from the patient. Yes * Community resources currently utilized None * Please name any agencies selected above. NONE * Additional services required to return to the preadmission environment? Yes * Can the patient safely return to the preadmission environment? Yes * Has this patient been hospitalized within the prior 30 days at any hospital? No Coverage Notice Reviewer: [id number] - Cholo White Notice Issued Date-Time: 05/29/2018 16:59 Notice Type: Patient Choice Letter Notice Delivered To: Patient Relationship to Patient: Physical Science Technician Name: Delivery Method: HAND - Hand Delivered Susanne Days: Prior Verbal Notification: Recipient Understood Notice: Yes Recipient Signature: Yes Med Rec Note Co-signed by Attending: Coverage Notice Comment: 1- [facility], 2- [facility] DP export: 05/30/18 3:02 p Patient Name: EDDIE DAVEY Page 09005 at 1619 All edits/amendments must be made on the electronic document DICTATION DATE: 05/30/181617 CURRENCY EXAMINER: JUSTINA 05/30/181617 RPT#: [id number] DC DATE: STATUS: ADM IN [facility] [address] [place] [address] END OF REPORT
[2018-05-30 20:00] VITALS: BP 182/93
[2018-05-31 04:00] VITALS: BP 189/98
[2018-05-31 07:06] LABS: CALC OSMOLALITY 277 mosm/kg (275-300); CALCIUM 8.8 mg/dL (8.5-10.1); CARBON DIOXIDE 25.7 mmol/L (21.0-32.0); CHLORIDE - SERUM 101 mmol/L (98-107); CREATININE - SERUM 0.8 mg/dL (0.6-1.3); GLUCOSE 180 mg/dL (74-106); POTASSIUM - SERUM 4.3 mmol/L (3.5-5.1); SODIUM 135 mmol/L (136-145); UREA NITROGEN 21 mg/dL (7-18); eGFR NON AFRICAN AMERICAN > 90 mL/min (90-120)
--- NOTE | 2018-05-31 08:36 | MORECARE ---
CASE MANAGEMENT DISCHARGE SUMMARY PATIENT: EDDIE DAVEY UNIT: [id number] ADM DATE: 05/17/18 AGE: 48 : [birth year] SEX: M ROOM/BED: D.2130 AUTHOR: RANJITDOC PHYSICIAN: REFERRING PHYSICIAN: ANA CHAVIRA MD DATE OF SERVICE: 05/31/18 Discharge Plan Patient Name: EDDIE DAVEY Facility: [facility]:[place] : 1970 Planned Disposition: Home with Home Health Anticipated Discharge Date: 05/31/18 Discharge Date: Expected LOS: 14 Initial Reviewer: [id number] Initial Review Date: 05/17/2018 Generated: 05/31/18 9:36 am Comments DCP- Discharge Planning Updated by [email or web address]: Cholo White on 05/31/18 7:[address] Patient Name: EDDIE DAVEY Encounter No: [id number] : 1970 Primary Insurance: MEDICAID [place] Anticipated DC Date: 05-31-2018 Planned Disposition: Home with Home Health External Planned Provider: [facility] DCP follow-up note: CM RECEIVED CALL FROM HOME INF[facility]ION SERVICES / [facility], , SPOKE TO MARNIE WHO INFORMED CM THAT HER [place] TRUCK DRIVER HAS JUST TOLD HER THAT THEY WILL NOT ACCEPT PT FOR HOME INFUSION SERVICES. CM WILL CONTINUE TO ATTEMPT TO LOCATE A HOME INFUSION COMPANY WILLING TO ACCEPT PT WITH HIS HISTORY OF DRUG USE. IF ACCEPTING INFUSION COMPANY CAN BE FOUND, [facility] WILL ACCEPT; FAX DISCHARGE INFORMATION TO [facility] AT [phone]. NOTIFY [place] OF DISCHARGE AT [phone]. Cholo White, CASE MANAGEMENT DCP- Discharge Planning Updated by [id number]: Cholo White on 05/30/18 3:[address] Patient Name: EDDIE DAVEY Encounter No: [id number] : 1970 Primary Insurance: MEDICAID [place] Anticipated DC Date: 05-31-2018 Planned Disposition: Home with Home Health External Planned Provider: [facility], [facility]; [facility] DCP follow-up note: CM RECEIVED CALL FROM [facility] BAIRD [facility] WHO INFORMED CM THAT THEIR PHARMACISTS WILL NOT ACCEPT PT. CM NOTIFIED NEIL GUIDO. CM CALLED HOME [facility] SERVICES / [facility], , SPOKE TO MARNIE WHO WILL CHECK WITH PHARMACY AND RISK MANAGEMENT TO SEE IF THEY WILL CONSIDER PT. CM RECEIVED CALL BACK AND THEY WILL ACCEPT IF PT HAS DRUG TESTING AND RANDOM DRUG SCREENING DURING PROCESS. KARLA WILL HAVE TO MEET WITH PT AND HAVE HIM SIGN AGREEMENT TO NOT USE IV DRUGS AND DELIVER MEDICATIONS WELL PROVIDE TEACHING TO PT AND SPOUSE PRIOR TO DISCHARGE HOME TOMORROW CM NOTIFIED PT AND DR. YUSUF IN ROOM. CM NOTIFIED NEIL GUIDO AND RECEIVED ORDER FOR DRUG TESTING TODAY. CM WAITING [facility] / [facility], TO MEET WITH PT TOMORROW AND DELIVER MEDICATIONS FOR PT'S DISCHARGE HOME TOMORROW. [facility] IN [place] TO ACCEPT PATIENT FOR HOME FOLLOW UP. CM NOTIFIED [facility] OF PT'S PLANNED DISCHARGE TOMORROW. FOR DISCHARGE 05-31-18 AFTER ARRANGEMENTS COMPLETED BY HOME INFUSION SERVICES / [facility], FAX DISCHARGE INFORMATION TO [facility] AT [phone]. NOTIFY [place] OF DISCHARGE AT [phone]. Cholo White, CASE MANAGEMENT DCP- Discharge Planning Updated by [id number]: Cholo White on 05/30/18 11:[address] Patient Name: EDDIE DAVEY Encounter No: [id number] : 1970 Primary Insurance: MEDICAID [facility] Date: 05-30-2018 Planned Disposition: Home with Home Health External Planned Providers: [facility] [place] [facility]; [facility] DCP follow-up note: CM RECEIVED ORDER FOR NEBULIZER AND MEDICATIONS. CM SPOKE TO PT IN ROOM WHO REPORTS ALREADY HAVING NEBULIZER AT HOME AND NEEDED PRESCRIPTION TO FILL AT PHARMACY. PT REPORTS ABILITY TO AFFORD HIS NEBULIZER MEDICATIONS. CM DISCUSSED THAT [facility] HAS BOUGHT OUT [facility], PT REPORTS THEY REMAIN HIS FIRST CHOICE. PT WANTS TO GO HOME TODAY, FAMILY TO TRANSPORT. CM CALLED [facility], , SPOKE TO ANA, WHO TOOK REFERRAL AND WILL REVIEW AND LET CM KNOW IF THEY CAN MEET PT'S NEEDS. CM FAXED REFERRAL TO [facility] [place] [facility] AT [phone]. CM CALLED [facility], , PROVIDED REFERRAL TO R[facility]. CM PROVIDED [facility] WITH DR. MEDELLIN OFFICE AND PAGER NUMBER. CM FAXED REFERRAL TO [facility] AT [phone]. KIERRA PLANS FOR PT TO HAVE LAST DOSE OF ANCEF AT HOSPITAL FOR 1500 HOURS. [facility] WILL DELIVER MEDICATIONS AND PROVIDE TEACHING TO PT AND SPOUSE PRIOR TO DISCHARGE HOME TODAY. CM WAITING FINAL ACCEPTANCE BY [facility]. Cholo White, CASE MANAGEMENT Appended by Cholo White on 05/30/2018 12:43 RED HAT LINUX ENGINEER: KIERRA PLANS FOR PT TO HAVE LAST DOSE OF ANCEF AT HOSPITAL FOR 1730 HOURS. [facility] WILL DELIVER MEDICATIONS AND PROVIDE TEACHING TO PT AND SPOUSE PRIOR TO DISCHARGE HOME TODAY. CM RECEIVED CALL FROM ANA OF [facility] IN [place] TO ACCEPT PATIENT FOR HOME FOLLOW UP. FOR DISCHARGE AFTER 1730 INFUSION TODAY, FAX DISCHARGE INFORMATION TO [facility] AT [phone]. NOTIFY [place] OF DISCHARGE AT [phone]. HILDA Estrada DCP- Discharge Planning Updated by [id number]: Cholo White on 05/29/18 4:[address] Patient Name: EDDIE DAVEY Encounter No: [id number] : 1970 Primary Insurance: MEDICAID [place] Anticipated DC Date: 05-30-2018 Planned Disposition: Home with Home Health External Planned Provider: TO BE DETERMINED DCP follow-up note: CM RECEIVED ORDER TO ARRANGE HOME HEALTH AND HOME IV INFUSION FOR DISCHARGE HOME. CM SPOKE TO PT AND SPOUSE IN ROOM, DISCUSSED DISCHARGE PLAN AND HOME HEALTH WELL HOME INFUSION COMPANIES. CM PROVIDED HOME HEALTH LISTING. PT SIGNED CHOICE FOR [address] [place] [address] AND - [facility]. PT HAS NO PREFERENCE ON HOME INFUSION PROVIDER. CM TO ARRANGE HOME HEALTH WITH HOME INFUSION 05-30-18 FOR DISCHARGE HOME. HILDA Estrada DCP- Discharge Planning Updated by [id number]: Cholo White on 05/29/18 10:[address] Patient Name: EDDIE DAVEY Encounter No: [id number] : 1970 Primary Insurance: MEDICAID [place] Anticipated DC Date: Planned Disposition: Home DCP follow-up note: CM RECEIVED CALL FROM PT'S SPOUSE WHO ASKED THAT CM MEET WITH PT IN ROOM THIS MORNING REGARDING DISCHARGE PLANNING. CM MET WITH PT AND SPOUSE IN ROOM REQUESTED. PT TEARFULLY REQUESTED TO BE DISCHARGED HOME WITH OUTPATIENT IV ANTIBIOTICS. CM INFORMED PT THAT BASED ON HIS HISTORY OF IV DRUG USE, THE DOCTOR MAY NOT BE WILLING FOR THAT PLAN. PT CRIED AND STATES HE WILL DO A DRUG TEST EVERYDAY AND PROMISES NOT TO USE DRUGS. PT WANTS TO BE CLOSER TO HOME AND IF POSSIBLE, TRANSFER BACK TO THE HOSPITAL THAT SENT HIM HERE. CM INFORMED PT THAT CM WILL NOTIFY DAYCARE ASSISTANT. PT IS AWARE THAT THE DOCTOR WILL BE ROUNDING LATER TODAY AND WILL DISCUSS HIS DESIRES WITH THE DOCTOR. CM SPOKE TO NEIL GUIDO, NOTIFIED OF PT'S REQUEST; DAYCARE ASSISTANT ADVISED THAT PT'S REQUESTS ARE NOT OPTIONS FOR CARE AT THIS TIME. CM TO CONTINUE TO FOLLOW AND ASSIST NEEDED. Cholo White, CASE MANAGEMENT DCP- Discharge Planning Updated by [id number]: Cholo White on 05/24/18 3:[address] Patient Name: EDDIE DAVEY Admission Status: Urgent Accout number: [id number] Admission Date: 05-17-2018 : 1970 Admission Diagnosis:SHORTNESS OF BREATH Attending: ANA CHAVIRA Current LOS: 7 Anticipated DC Date: Planned Disposition: Home Primary Insurance: MEDICAID [place] Discharge Planning Comments: CM SPOKE TO PT AND SPOUSE IN ROOM AT PT'S REQUEST. EDDIE DAVEY provided verbal consent to discuss current and ongoing needs with/in the presence of: SPOUSE, DHEERAJ. PT HAS NO MEDICAL EQUIPMENT AT HOME AND PREFERS [facility] IF ANY IS NEEDED. PT HAS NOT ASSISTANCE AT HOME AND REPORTS LIVING AT HOME INDEPENDENTLY WITH HIS SPOUSE. PT REPORTS HISTORY OF DRUG USE IV AND THAT HE DID "SLIP UP ON SUPERBOWL TUESDAY AND SHOOT UP A LOAD." PT REPORTS THAT IT KILLED HIM AND HE IS NOT GOING TO EVER USE DRUGS AGAIN. PT REPORTS PLAN TO RETURN HOME WITH SPOUSE. PT REPORTS PLAN TO FILE FOR DISABILITY AND HAS BEEN DECLINED 3 TIMES FOR DISABILITY PREVIOUSLY. 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 CM EXPLAINED THAT ONCE A TREATMENT PLAN IS DEVELOPED, CM WOULD BE AVAILABLE TO ASSIST WITH ANY NEEDS. CM PROVIDED CM CONTACT INFORMATION TO PT AND HIS SPOUSE. CM TO FOLLOW AND ASSIST NEEDED. White Sugar Boiler: Cholo White DCPIA - Discharge Planning Initial Assessment Updated by [id number]: Cholo White on 05/24/18 4:39 pm * Is the patient Alert and Oriented? Yes * How many steps to enter\\exit or inside your home? * PCP DR. JIMÉNEZ AT [facility] [place] * Pharmacy [facility] IN [place] * Preadmission Environment Home with Family * ADLs Independent * Equipment None * Other Equipment [facility] - PREFERRED EQUIPMENT PROVIDER * List name and contact numbers for known caregivers / representatives who currently or will assist patient after discharge: DHEERAJ DAVEY, SPOUSE, * Verbal permission to speak to the caregivers and representatives has been obtained from the patient. Yes * Community resources currently utilized None * Please name any agencies selected above. NONE * Additional services required to return to the preadmission environment? Yes * Can the patient safely return to the preadmission environment? Yes * Has this patient been hospitalized within the prior 30 days at any hospital? No Coverage Notice Reviewer: [id number] Jaqueline White Notice Issued Date-Time: 05/29/2018 16:59 Notice Type: Patient Choice Letter Notice Delivered To: Patient Relationship to Patient: Development Director Name: Delivery Method: HAND - Hand Delivered Susanne Days: Prior Verbal Notification: Recipient Understood Notice: Yes Recipient Signature: Yes Med Rec Note Co-signed by Attending: Coverage Notice Comment: 1- [facility], 2- [facility] Last DP export: 05/30/18 3:19 p Patient Name: EDDIE DAVEY Page [id number] at 0836 All edits/amendments must be made on the electronic document DICTATION DATE: 05/31/18 0836 WINDOW CLERK: JUSTINA 05/31/18 0836 RPT#: [id number] DC DATE: STATUS: ADM IN [facility] [address] [place] [address] END OF REPORT
--- NOTE | 2018-05-31 08:43 | MORECARE ---
CASE MANAGEMENT DISCHARGE SUMMARY PATIENT: EDDIE DAVEY UNIT: [id number] ADM DATE: 05/17/18 AGE: 48 : 72 SEX: M ROOM/BED: D.2130 AUTHOR: RANJITDOC PHYSICIAN: REFERRING PHYSICIAN: ANA CHAVIRA MD DATE OF SERVICE: 05/31/18 Discharge Plan Patient Name: EDDIE DAVEY Facility: [facility]:[place] : 1970 Planned Disposition: Home with Home Health Anticipated Discharge Date: 05/31/18 Discharge Date: Expected LOS: 14 Initial Reviewer: [id number] Initial Review Date: 05/17/2018 Generated: 05/31/18 9:43 am Comments DCP- Discharge Planning Updated by [id number]: Cholo White on 05/31/18 7:[address] Patient Name: EDDIE DAVEY Encounter No: [id number] : 1970 Primary Insurance: [place] Anticipated DC Date: 05-31-2018 Planned Disposition: Home with Home Health External Planned Provider: [facility] DCP follow-up note: CM RECEIVED CALL FROM HOME INF[facility]ION SERVICES / [facility], , SPOKE TO MARNIE WHO INFORMED CM THAT HER SENIOR HEALTH PHYSICS TECHNICIAN HAS JUST TOLD HER THAT THEY WILL NOT ACCEPT PT FOR HOME INFUSION SERVICES. CM WILL CONTINUE TO ATTEMPT TO LOCATE A HOME INFUSION COMPANY WILLING TO ACCEPT PT WITH HIS HISTORY OF DRUG USE. IF ACCEPTING INFUSION COMPANY CAN BE FOUND, [facility] WILL ACCEPT; FAX DISCHARGE INFORMATION TO [facility] AT [phone]. NOTIFY [facility] OF DISCHARGE AT [phone]. Cholo White, CASE MANAGEMENT DCP- Discharge Planning Updated by [id number]: Cholo White on 05/30/18 3:[address] Patient Name: EDDIE DAVEY Encounter No: [id number] : 1970 Primary Insurance: [place] Anticipated DC Date: 05-31-2018 Planned Disposition: Home with Home Health External Planned Provider: [facility], [facility]; [facility] DCP follow-up note: CM RECEIVED CALL FROM [facility] WHO INFORMED CM THAT THEIR PHARMACISTS WILL NOT ACCEPT PT. CM NOTIFIED NEIL GUIDO. CM CALLED HOME INFUSION SERVICES / [facility], , SPOKE TO MARNIE WHO WILL CHECK WITH PHARMACY AND RISK MANAGEMENT TO SEE IF THEY WILL CONSIDER PT. CM RECEIVED CALL BACK AND THEY WILL ACCEPT IF PT HAS DRUG TESTING AND RANDOM DRUG SCREENING DURING PROCESS. KARLA WILL HAVE TO MEET WITH PT AND HAVE HIM SIGN AGREEMENT TO NOT USE IV DRUGS AND DELIVER MEDICATIONS WELL PROVIDE TEACHING TO PT AND SPOUSE PRIOR TO DISCHARGE HOME TOMORROW CM NOTIFIED PT AND DR. YUSUF IN ROOM. CM NOTIFIED NEIL GUIDO AND RECEIVED ORDER FOR DRUG TESTING TODAY. CM WAITING HOME [facility] / [facility], TO MEET WITH PT TOMORROW AND DELIVER MEDICATIONS FOR PT'S DISCHARGE HOME TOMORROW. [facility] IN [place] TO ACCEPT PATIENT FOR HOME FOLLOW UP. CM NOTIFIED [facility] OF PT'S PLANNED DISCHARGE TOMORROW. FOR DISCHARGE 05-31-18 AFTER ARRANGEMENTS COMPLETED BY HOME INF[facility]ION SERVICES / [facility], FAX DISCHARGE INFORMATION TO [facility] AT [phone]. NOTIFY [facility] OF DISCHARGE AT [phone]. Cholo White, CASE MANAGEMENT DCP- Discharge Planning Updated by [id number]: Cholo White on 05/30/18 11:[address] Patient Name: EDDIE DAVEY Encounter No: [id number] : 1970 Primary Insurance: MEDICAID [facility] Date: 05-30-2018 Planned Disposition: Home with Home Health External Planned Providers: [facility], [place] OFFICE; [facility] DCP follow-up note: CM RECEIVED ORDER FOR NEBULIZER AND MEDICATIONS. CM SPOKE TO PT IN ROOM WHO REPORTS ALREADY HAVING NEBULIZER AT HOME AND NEEDED PRESCRIPTION TO FILL AT PHARMACY. PT REPORTS ABILITY TO AFFORD HIS NEBULIZER MEDICATIONS. CM DISCUSSED THAT [facility] HAS BOUGHT OUT [facility], PT REPORTS THEY REMAIN HIS FIRST CHOICE. PT WANTS TO GO HOME TODAY, FAMILY TO TRANSPORT. CM CALLED [facility], , SPOKE TO ANA, WHO TOOK REFERRAL AND WILL REVIEW AND LET CM KNOW IF THEY CAN MEET PT'S NEEDS. CM FAXED REFERRAL TO [facility] AT [phone]. CM CALLED [facility], , PROVIDED REFERRAL TO RUTHIE. CM PROVIDED [facility]UTH[facility] WITH DR. MEDELLIN OFFICE AND PAGER NUMBER. CM FAXED REFERRAL TO [facility] AT [phone]. [facility] PLANS FOR PT TO HAVE LAST DOSE OF ANCEF AT HOSPITAL FOR 1500 HOURS. [facility] WILL DELIVER MEDICATIONS AND PROVIDE TEACHING TO PT AND SPOUSE PRIOR TO DISCHARGE HOME TODAY. CM WAITING FINAL ACCEPTANCE BY [facility]. Cholo White, CASE MANAGEMENT Appended by Cholo White on 05/30/2018 12:43 MOLD CHANGER: KIERRA PLANS FOR PT TO HAVE LAST DOSE OF ANCEF AT HOSPITAL FOR 1730 HOURS. [facility] WILL DELIVER MEDICATIONS AND PROVIDE TEACHING TO PT AND SPOUSE PRIOR TO DISCHARGE HOME TODAY. CM RECEIVED CALL FROM ANA OF [facility] IN [place] TO ACCEPT PATIENT FOR HOME FOLLOW UP. FOR DISCHARGE AFTER 1730 INFUSION TODAY, FAX DISCHARGE INFORMATION TO [facility] AT [phone]. NOTIFY [facility] OF DISCHARGE AT [phone]. HILDA Estrada DCP- Discharge Planning Updated by [id number]: Cholo White on 05/29/18 4:[address] Patient Name: EDDIE DAVEY Encounter No: [id number] : 1970 Primary Insurance: MEDICAID [place] Anticipated DC Date: 05-30-2018 Planned Disposition: Home with Home Health External Planned Provider: TO BE DETERMINED DCP follow-up note: CM RECEIVED ORDER TO ARRANGE HOME HEALTH AND HOME IV INFUSION FOR DISCHARGE HOME. CM SPOKE TO PT AND SPOUSE IN ROOM, DISCUSSED DISCHARGE PLAN AND HOME HEALTH WELL HOME INFUSION COMPANIES. CM PROVIDED HOME HEALTH LISTING. PT SIGNED CHOICE FOR [address] [place] [address] AND - [facility]. PT HAS NO PREFERENCE ON HOME INFUSION PROVIDER. CM TO ARRANGE HOME HEALTH WITH HOME INFUSION 05-30-18 FOR DISCHARGE HOME. HILDA Estrada DCP- Discharge Planning Updated by [id number]: Cholo White on 05/29/18 10:[address] Patient Name: EDDIE DAVEY Encounter No: [id number] : 1970 Primary Insurance: MED[place]ID [place] Anticipated DC Date: Planned Disposition: Home DCP follow-up note: CM RECEIVED CALL FROM PT'S SPOUSE WHO ASKED THAT CM MEET WITH PT IN ROOM THIS MORNING REGARDING DISCHARGE PLANNING. CM MET WITH PT AND SPOUSE IN ROOM REQUESTED. PT TEARFULLY REQUESTED TO BE DISCHARGED HOME WITH OUTPATIENT IV ANTIBIOTICS. CM INFORMED PT THAT BASED ON HIS HISTORY OF IV DRUG USE, THE DOCTOR MAY NOT BE WILLING FOR THAT PLAN. PT CRIED AND STATES HE WILL DO A DRUG TEST EVERYDAY AND PROMISES NOT TO USE DRUGS. PT WANTS TO BE CLOSER TO HOME AND IF POSSIBLE, TRANSFER BACK TO THE HOSPITAL THAT SENT HIM HERE. CM INFORMED PT THAT CM WILL NOTIFY GAS SHOVEL OPERATOR. PT IS AWARE THAT THE DOCTOR WILL BE ROUNDING LATER TODAY AND WILL DISCUSS HIS DESIRES WITH THE DOCTOR. CM SPOKE TO NEIL GUIDO, NOTIFIED OF PT'S REQUEST; GAS SHOVEL OPERATOR ADVISED THAT PT'S REQUESTS ARE NOT OPTIONS FOR CARE AT THIS TIME. CM TO CONTINUE TO FOLLOW AND ASSIST NEEDED. Cholo White, CASE MANAGEMENT DCP- Discharge Planning Updated by [id number]: Cholo White on 05/24/18 3:[address] Patient Name: EDDIE DAVEY Admission Status: Urgent Accout number: [id number] Admission Date: 05-17-2018 : 1970 Admission Diagnosis:SHORTNESS OF BREATH Attending: ANA CHAVIRA Current LOS: 7 Anticipated DC Date: Planned Disposition: Home Primary Insurance: [place] Discharge Planning Comments: CM SPOKE TO PT AND SPOUSE IN ROOM AT PT'S REQUEST. EDDIE DAVEY provided verbal consent to discuss current and ongoing needs with/in the presence of: SPOUSE, DHEERAJ. PT HAS NO MEDICAL EQUIPMENT AT HOME AND PREFERS [facility] IF ANY IS NEEDED. PT HAS NOT ASSISTANCE AT HOME AND REPORTS LIVING AT HOME INDEPENDENTLY WITH HIS SPOUSE. PT REPORTS HISTORY OF DRUG USE IV AND THAT HE DID "SLIP UP ON SUPERBOWL TUESDAY AND SHOOT UP A LOAD." PT REPORTS THAT IT KILLED HIM AND HE IS NOT GOING TO EVER USE DRUGS AGAIN. PT REPORTS PLAN TO RETURN HOME WITH SPOUSE. PT REPORTS PLAN TO FILE FOR DISABILITY AND HAS BEEN DECLINED 3 TIMES FOR DISABILITY PREVIOUSLY. 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 CM EXPLAINED THAT ONCE A TREATMENT PLAN IS DEVELOPED, CM WOULD BE AVAILABLE TO ASSIST WITH ANY NEEDS. CM PROVIDED CM CONTACT INFORMATION TO PT AND HIS SPOUSE. CM TO FOLLOW AND ASSIST NEEDED. Chemical Process Engineer: Cholo White DCPIA - Discharge Planning Initial Assessment Updated by [id number]: Cholo White on 05/24/18 4:39 pm * Is the patient Alert and Oriented? Yes * How many steps to enter\\exit or inside your home? * PCP DR. JIMÉNEZ AT [facility] IN [place] * [facility]acy [facility] IN [place] * Preadmission Environment Home with Family * ADLs Independent * Equipment None * Other Equipment [facility] - PREFERRED EQUIPMENT PROVIDER * List name and contact numbers for known caregivers / representatives who currently or will assist patient after discharge: DHEERAJ DAVEY, SPOUSE, * Verbal permission to speak to the caregivers and representatives has been obtained from the patient. Yes * Community resources currently utilized None * Please name any agencies selected above. NONE * Additional services required to return to the preadmission environment? Yes * Can the patient safely return to the preadmission environment? Yes * Has this patient been hospitalized within the prior 30 days at any hospital? No External Providers External Provider: [facility] Next Contact Date: 05/31/2018 Service Request Date: Service Type: Resolution: Reviewer: Comments: External Provider: [facility] Next Contact Date: 05/30/2018 Service Request Date: Service Type: Resolution: Reviewer: Comments: Coverage Notice Reviewer: [id number] Jaqueline White Notice Issued Date-Time: 05/29/2018 16:59 Notice Type: Patient Choice Letter Notice Delivered To: Patient Relationship to Patient: Medicine Assistant Name: Delivery Method: HAND - Hand Delivered Susanne Days: Prior Verbal Notification: Recipient Understood Notice: Yes Recipient Signature: Yes Med Rec Note Co-signed by Attending: Coverage Notice Comment: [facility]- [facility], 2- [facility] Last DP export: 05/31/18 7:36 a Patient Name: EDDIE DAVEY Page 53065 at 0843 All edits/amendments must be made on the electronic document DICTATION DATE: 05/31/18842 CANDLES POURER: JUSTINA 05/31/18842 RPT#: [id number] DC DATE: STATUS: ADM IN [facility] [address] [place] [address] END OF REPORT
--- NOTE | 2018-05-31 08:50 | MORECARE ---
CASE MANAGEMENT DISCHARGE SUMMARY PATIENT: EDDIE DAVEY UNIT: [id number] ADM DATE: 05/17/18 AGE: 48 : 72 SEX: M ROOM/BED: D.2130 AUTHOR: RANJITDOC PHYSICIAN: REFERRING PHYSICIAN: ANA CHAVIRA MD DATE OF SERVICE: 05/31/18 Discharge Plan Patient Name: EDDIE DAVEY Facility: [facility]:[place] : 1970 Planned Disposition: Home with Home Health Anticipated Discharge Date: 05/31/18 Discharge Date: Expected LOS: 14 Initial Reviewer: [id number] Initial Review Date: 05/17/2018 Generated: 05/31/18 9:50 am Comments DCP- Discharge Planning Updated by [id number]: Cholo White on 05/31/18 7:[address] Patient Name: EDDIE DAVEY Encounter No: [id number] : 1970 Primary Insurance: MEDICAID [place] Anticipated DC Date: 05-31-2018 Planned Disposition: Home with Home Health External Planned Provider: [facility] DCP follow-up note: CM RECEIVED CALL FROM HOME INFUSION SERVICES / [facility], , SPOKE TO MARNIE WHO INFORMED CM THAT HER AUTOMATIC BEADING LATHE OPERATOR HAS JUST TOLD HER THAT THEY WILL NOT ACCEPT PT FOR HOME INFUSION SERVICES. CM WILL CONTINUE TO ATTEMPT TO LOCATE A HOME INFUSION COMPANY WILLING TO ACCEPT PT WITH HIS HISTORY OF DRUG USE. IF ACCEPTING INFUSION COMPANY CAN BE FOUND, [facility] WILL ACCEPT; FAX DISCHARGE INFORMATION TO [facility] AT [phone]. NOTIFY [facility] OF DISCHARGE AT [phone]. Cholo White, CASE MANAGEMENT DCP- Discharge Planning Updated by [id number]: Cholo White on 05/30/18 3:[address] Patient Name: EDDIE DAVEY Encounter No: [id number] : 1970 Primary Insurance: MED[place]ID [place] Anticipated DC Date: 05-31-2018 Planned Disposition: Home with Home Health External Planned Provider: [facility], [facility]; [facility] DCP follow-up note: CM RECEIVED CALL FROM [facility]UTHIE [facility] WHO INFORMED CM THAT THEIR PHARMACISTS WILL NOT ACCEPT PT. CM NOTIFIED NEIL GUIDO. CM CALLED HOME INFUSION SERVICES / [facility], , SPOKE TO MARNIE WHO WILL CHECK WITH PHARMACY AND RISK MANAGEMENT TO SEE IF THEY WILL CONSIDER PT. CM RECEIVED CALL BACK AND THEY WILL ACCEPT IF PT HAS DRUG TESTING AND RANDOM DRUG SCREENING DURING PROCESS. KARLA WILL HAVE TO MEET WITH PT AND HAVE HIM SIGN AGREEMENT TO NOT USE IV DRUGS AND DELIVER MEDICATIONS WELL PROVIDE TEACHING TO PT AND SPOUSE PRIOR TO DISCHARGE HOME TOMORROW CM NOTIFIED PT AND DR. YUSUF IN ROOM. CM NOTIFIED NEIL GUIDO AND RECEIVED ORDER FOR DRUG TESTING TODAY. CM WAITING HOME IN[facility]ION SERVICES / [facility], TO MEET WITH PT TOMORROW AND DELIVER MEDICATIONS FOR PT'S DISCHARGE HOME TOMORROW. [facility] IN [place] TO ACCEPT PATIENT FOR HOME FOLLOW UP. CM NOTIFIED [facility] OF PT'S PLANNED DISCHARGE TOMORROW. FOR DISCHARGE 05-31-18 AFTER ARRANGEMENTS COMPLETED BY HOME INFUSION SERVICES / [facility], FAX DISCHARGE INFORMATION TO [facility] AT [phone]. NOTIFY [facility] OF DISCHARGE AT [phone]. Cholo White, CASE MANAGEMENT DCP- Discharge Planning Updated by [id number]: Cholo White on 05/30/18 11:[address] Patient Name: EDDIE DAVEY Encounter No: [id number] : 1970 Primary Insurance: MEDICAID [facility] Date: 05-30-2018 Planned Disposition: Home with Home Health External Planned Providers: [facility], [place] OFFICE; [facility] DCP follow-up note: CM RECEIVED ORDER FOR NEBULIZER AND MEDICATIONS. CM SPOKE TO PT IN ROOM WHO REPORTS ALREADY HAVING NEBULIZER AT HOME AND NEEDED PRESCRIPTION TO FILL AT PHARMACY. PT REPORTS ABILITY TO AFFORD HIS NEBULIZER MEDICATIONS. CM DISCUSSED THAT [facility] HAS BOUGHT OUT [facility], PT REPORTS THEY REMAIN HIS FIRST CHOICE. PT WANTS TO GO HOME TODAY, FAMILY TO TRANSPORT. CM CALLED [facility], , SPOKE TO ANA, WHO TOOK REFERRAL AND WILL REVIEW AND LET CM KNOW IF THEY CAN MEET PT'S NEEDS. CM FAXED REFERRAL TO [facility] AT [phone]. CM CALLED [facility], , PROVIDED REFERRAL TO R[facility]. CM PROVIDED [facility] WITH DR. MEDELLIN OFFICE AND PAGER NUMBER. CM FAXED REFERRAL TO [facility] AT [phone]. K[facility] PLANS FOR PT TO HAVE LAST DOSE OF ANCEF AT HOSPITAL FOR 1500 HOURS. [facility] WILL DELIVER MEDICATIONS AND PROVIDE TEACHING TO PT AND SPOUSE PRIOR TO DISCHARGE HOME TODAY. CM WAITING FINAL ACCEPTANCE BY [facility]. Cholo White, CASE MANAGEMENT Appended by Cholo White on 05/30/2018 12:43 ASPHALT RAKER: KIERRA PLANS FOR PT TO HAVE LAST DOSE OF ANCEF AT HOSPITAL FOR 1730 HOURS. [facility] WILL DELIVER MEDICATIONS AND PROVIDE TEACHING TO PT AND SPOUSE PRIOR TO DISCHARGE HOME TODAY. CM RECEIVED CALL FROM ANA OF [facility] IN [place] TO ACCEPT PATIENT FOR HOME FOLLOW UP. FOR DISCHARGE AFTER 1730 INFUSION TODAY, FAX DISCHARGE INFORMATION TO [facility] AT [phone]. NOTIFY [facility] OF DISCHARGE AT [phone]. HILDA Estrada DCP- Discharge Planning Updated by [id number]: Cholo White on 05/29/18 4:[address] Patient Name: EDDIE DAVEY Encounter No: [id number] : 1970 Primary Insurance: MED[place]ID [place] Anticipated DC Date: 05-30-2018 Planned Disposition: Home with Home Health External Planned Provider: TO BE DETERMINED DCP follow-up note: CM RECEIVED ORDER TO ARRANGE HOME HEALTH AND HOME IV INFUSION FOR DISCHARGE HOME. CM SPOKE TO PT AND SPOUSE IN ROOM, DISCUSSED DISCHARGE PLAN AND HOME HEALTH WELL HOME INFUSION COMPANIES. CM PROVIDED HOME HEALTH LISTING. PT SIGNED CHOICE FOR [address] [place] [address] AND - [facility]. PT HAS NO PREFERENCE ON HOME INFUSION PROVIDER. CM TO ARRANGE HOME HEALTH WITH HOME INFUSION 05-30-18 FOR DISCHARGE HOME. HILDA Estrada DCP- Discharge Planning Updated by [id number]: Cholo White on 05/29/18 10:[address] Patient Name: EDDIE DAVEY Encounter No: [id number] : 1970 Primary Insurance: MED[place]ID [place] Anticipated DC Date: Planned Disposition: Home DCP follow-up note: CM RECEIVED CALL FROM PT'S SPOUSE WHO ASKED THAT CM MEET WITH PT IN ROOM THIS MORNING REGARDING DISCHARGE PLANNING. CM MET WITH PT AND SPOUSE IN ROOM REQUESTED. PT TEARFULLY REQUESTED TO BE DISCHARGED HOME WITH OUTPATIENT IV ANTIBIOTICS. CM INFORMED PT THAT BASED ON HIS HISTORY OF IV DRUG USE, THE DOCTOR MAY NOT BE WILLING FOR THAT PLAN. PT CRIED AND STATES HE WILL DO A DRUG TEST EVERYDAY AND PROMISES NOT TO USE DRUGS. PT WANTS TO BE CLOSER TO HOME AND IF POSSIBLE, TRANSFER BACK TO THE HOSPITAL THAT SENT HIM HERE. CM INFORMED PT THAT CM WILL NOTIFY CUSTOMS AND BORDER PROTECTION INSPECTOR. PT IS AWARE THAT THE DOCTOR WILL BE ROUNDING LATER TODAY AND WILL DISCUSS HIS DESIRES WITH THE DOCTOR. CM SPOKE TO NEIL GUIDO, NOTIFIED OF PT'S REQUEST; CUSTOMS AND BORDER PROTECTION INSPECTOR ADVISED THAT PT'S REQUESTS ARE NOT OPTIONS FOR CARE AT THIS TIME. CM TO CONTINUE TO FOLLOW AND ASSIST NEEDED. Cholo White, CASE MANAGEMENT DCP- Discharge Planning Updated by [id number]: Cholo White on 05/24/18 3:[address] Patient Name: EDDIE DAVEY Admission Status: Urgent Accout number: [id number] Admission Date: 05-17-2018 : 1970 Admission Diagnosis:SHORTNESS OF BREATH Attending: ANA CHAVIRA Current LOS: 7 Anticipated DC Date: Planned Disposition: Home Primary Insurance: MEDICAID [place] Discharge Planning Comments: CM SPOKE TO PT AND SPOUSE IN ROOM AT PT'S REQUEST. EDDIE DAVEY provided verbal consent to discuss current and ongoing needs with/in the presence of: SPOUSE, DHEERAJ. PT HAS NO MEDICAL EQUIPMENT AT HOME AND PREFERS [facility] IF ANY IS NEEDED. PT HAS NOT ASSISTANCE AT HOME AND REPORTS LIVING AT HOME INDEPENDENTLY WITH HIS SPOUSE. PT REPORTS HISTORY OF DRUG USE IV AND THAT HE DID "SLIP UP ON SUPERBOWL TUESDAY AND SHOOT UP A LOAD." PT REPORTS THAT IT KILLED HIM AND HE IS NOT GOING TO EVER USE DRUGS AGAIN. PT REPORTS PLAN TO RETURN HOME WITH SPOUSE. PT REPORTS PLAN TO FILE FOR DISABILITY AND HAS BEEN DECLINED 3 TIMES FOR DISABILITY PREVIOUSLY. 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 CM EXPLAINED THAT ONCE A TREATMENT PLAN IS DEVELOPED, CM WOULD BE AVAILABLE TO ASSIST WITH ANY NEEDS. CM PROVIDED CM CONTACT INFORMATION TO PT AND HIS SPOUSE. CM TO FOLLOW AND ASSIST NEEDED. Paperboard Machine Operator: Cholo White DCPIA - Discharge Planning Initial Assessment Updated by [id number]: Cholo White on 05/24/18 4:39 pm * Is the patient Alert and Oriented? Yes * How many steps to enter\\exit or inside your home? * PCP DR. JIMÉNEZ AT [facility] IN [place] * Pharmacy [facility] IN [place] * Preadmission Environment Home with Family * ADLs Independent * Equipment None * Other Equipment [facility] - PREFERRED EQUIPMENT PROVIDER * List name and contact numbers for known caregivers / representatives who currently or will assist patient after discharge: DHEERAJ DAVEY, SPOUSE, * Verbal permission to speak to the caregivers and representatives has been obtained from the patient. Yes * Community resources currently utilized None * Please name any agencies selected above. NONE * Additional services required to return to the preadmission environment? Yes * Can the patient safely return to the preadmission environment? Yes * Has this patient been hospitalized within the prior 30 days at any hospital? No External [facility] Next Contact Date: 05/31/2018 Service Request Date: Service Type: Resolution: Reviewer: Comments: Coverage Notice Reviewer: [id number] Jaqueline White Notice Issued Date-Time: 05/29/2018 16:59 Notice Type: Patient Choice Letter Notice Delivered To: Patient Relationship to Patient: Electric Drill Operator Name: Delivery Method: HAND - Hand Delivered Susanne Days: Prior Verbal Notification: Recipient Understood Notice: Yes Recipient Signature: Yes Med Rec Note Co-signed by Attending: Coverage Notice Comment: 1- [facility] DEPT, 2- [facility] DP export: 05/31/18 7:43 a Patient Name: EDDIE DAVEY Page 72633 at 0850 All edits/amendments must be made on the electronic document DICTATION DATE: 05/31/18 0850 FOREIGN LANGUAGE INTERPRETER: JUSTINA 05/31/18 0850 RPT#: [id number] DC DATE: STATUS: ADM IN [facility] [address] [place] [address] END OF REPORT
[2018-05-31 08:57] VITALS: BP 164/93
--- NOTE | 2018-05-31 09:10 | NUR ---
RESUMING PT CARE, PT LAYING IN BED ALERT AND ORIENTED X3, SPOUSE IS AT BEDSIDE. DENIES NEEDS AT THIS TIME. CALL LIGHT IN REACH, WILL CONTINUE TO MONITOR AND FOLLOW PLAN OF CARE.
--- NOTE | 2018-05-31 09:48 | MORECARE ---
CASE MANAGEMENT DISCHARGE SUMMARY PATIENT: EDDIE DAVEY UNIT: [id number] ADM DATE: 05/17/18 AGE: 48 : [birth year] SEX: M ROOM/BED: D.2130 AUTHOR: RANJIT,DOC PHYSICIAN: REFERRING PHYSICIAN: ANA CHAVIRA MD DATE OF SERVICE: 05/31/18 Discharge Plan Patient Name: EDDIE DAVEY Facility: [facility]:[place] : 1970 Planned Disposition: Home with Home Health Anticipated Discharge Date: 05/31/18 Discharge Date: Expected LOS: 14 Initial Reviewer: [id number] Initial Review Date: 05/17/2018 Generated: 05/31/18 10:48 am Comments DCP- Discharge Planning Updated by [email or web address]: Cholo Perez on 05/31/18 8:[address] Patient Name: EDDIE DAVEY Encounter No: [id number] : 1970 Primary Insurance: MEDICAID [place] Anticipated DC Date: 05-31-2018 Planned Disposition: Home with Home Health External Planned Provider: [facility] DCP follow-up note: CM RECEIVED CALL FROM HOME INF[facility]ION SERVICES / [facility], , SPOKE TO MARNIE WHO INFORMED CM THAT HER PCU RN HAS JUST TOLD HER THAT THEY WILL NOT ACCEPT PT FOR HOME INFUSION SERVICES. CM WILL CONTINUE TO ATTEMPT TO LOCATE A HOME INFUSION COMPANY WILLING TO ACCEPT PT WITH HIS HISTORY OF DRUG USE. IF ACCEPTING INFUSION COMPANY CAN BE FOUND, [facility] WILL ACCEPT; FAX DISCHARGE INFORMATION TO [facility] AT [phone]. NOTIFY [facility] OF DISCHARGE AT [phone]. Cholo Perez, CASE MANAGEMENT Appended by Cholo Perez on 05/31/2018 9:42 FLYING TEACHER: CM CALLED [facility], , SPOKE TO CARLOS ENRIQUE, PROVIDED REFERRAL INFORMATION WITH PT HISTORY. THEY WILL CONSIDER REFERRAL FOR HOME INFUSION. CM FAXED REFERRAL TO [facility] OFFICE AT [phone]. DR. YUSUF NOTIFIED. CM WAITING ADMISSION DETERMINATION FROM [facility]; [facility] WILL ACCEPT; FAX DISCHARGE INFORMATION TO [facility] AT [phone]. NOTIFY [facility] OF DISCHARGE AT [phone]. CHOLO PEREZ CASE MANAGEMENT DCP- Discharge Planning Updated by [id number]: Cholo Perez on 05/30/18 3:[address] Patient Name: EDDIE DAVEY Encounter No: [id number] : 1970 Primary Insurance: MEDICAID [place] Anticipated DC Date: 05-31-2018 Planned Disposition: Home with Home Health External Planned Provider: [facility], [place] OFFICE; [facility] DCP follow-up note: CM RECEIVED CALL FROM [facility] WHO INFORMED CM THAT THEIR PHARMACISTS WILL NOT ACCEPT PT. CM NOTIFIED NEIL GUIDO. CM CALLED HOME INF[facility]ION SERVICES / [facility], , SPOKE TO MARNIE WHO WILL CHECK WITH PHARMACY AND RISK MANAGEMENT TO SEE IF THEY WILL CONSIDER PT. CM RECEIVED CALL BACK AND THEY WILL ACCEPT IF PT HAS DRUG TESTING AND RANDOM DRUG SCREENING DURING PROCESS. KARLA WILL HAVE TO MEET WITH PT AND HAVE HIM SIGN AGREEMENT TO NOT USE IV DRUGS AND DELIVER MEDICATIONS WELL PROVIDE TEACHING TO PT AND SPOUSE PRIOR TO DISCHARGE HOME TOMORROW CM NOTIFIED PT AND DR. YUSUF IN ROOM. CM NOTIFIED NEIL GUIDO AND RECEIVED ORDER FOR DRUG TESTING TODAY. CM WAITING HOME [facility] / [facility], TO MEET WITH PT TOMORROW AND DELIVER MEDICATIONS FOR PT'S DISCHARGE HOME TOMORROW. [facility] IN [place] TO ACCEPT PATIENT FOR HOME FOLLOW UP. CM NOTIFIED [facility] OF PT'S PLANNED DISCHARGE TOMORROW. FOR DISCHARGE 05-31-18 AFTER ARRANGEMENTS COMPLETED BY HOME INF[facility]ION SERVICES / [facility], FAX DISCHARGE INFORMATION TO [facility] AT [phone]. NOTIFY [facility] OF DISCHARGE AT [phone]. Cholo Perez CASE MANAGEMENT DCP- Discharge Planning Updated by [id number]: Cholo Perez on 05/30/18 11:[address] Patient Name: EDDIE DAVEY Encounter No: [id number] : 1970 Primary Insurance: MEDICAID [place] Anticipated DC Date: 05-30-2018 Planned Disposition: Home with Home Health External Planned Providers: [facility], [place] OFFICE; [facility] DCP follow-up note: CM RECEIVED ORDER FOR NEBULIZER AND MEDICATIONS. CM SPOKE TO PT IN ROOM WHO REPORTS ALREADY HAVING NEBULIZER AT HOME AND NEEDED PRESCRIPTION TO FILL AT PHARMACY. PT REPORTS ABILITY TO AFFORD HIS NEBULIZER MEDICATIONS. CM DISCUSSED THAT [facility] HAS BOUGHT OUT [facility], PT REPORTS THEY REMAIN HIS FIRST CHOICE. PT WANTS TO GO HOME TODAY, FAMILY TO TRANSPORT. CM CALLED [facility], , SPOKE TO ANA, WHO TOOK REFERRAL AND WILL REVIEW AND LET CM KNOW IF THEY CAN MEET PT'S NEEDS. CM FAXED REFERRAL TO [facility] AT [phone]. CM CALLED [facility], , PROVIDED REFERRAL TO R[facility]. CM PROVIDED [facility] WITH DR. MEDELLIN OFFICE AND PAGER NUMBER. CM FAXED REFERRAL TO [facility] AT [phone]. TERIAM PLANS FOR PT TO HAVE LAST DOSE OF ANCEF AT HOSPITAL FOR 1500 HOURS. [facility] WILL DELIVER MEDICATIONS AND PROVIDE TEACHING TO PT AND SPOUSE PRIOR TO DISCHARGE HOME TODAY. CM WAITING FINAL ACCEPTANCE BY [facility]. Cholo Perez, CASE MANAGEMENT Appended by Cholo Perez on 05/30/2018 12:43 FLYING TEACHER: TERIRAMANDEEP PLANS FOR PT TO HAVE LAST DOSE OF ANCEF AT HOSPITAL FOR 1730 HOURS. [facility] WILL DELIVER MEDICATIONS AND PROVIDE TEACHING TO PT AND SPOUSE PRIOR TO DISCHARGE HOME TODAY. CM RECEIVED CALL FROM ANA OF [facility] IN [place] TO ACCEPT PATIENT FOR HOME FOLLOW UP. FOR DISCHARGE AFTER 1730 INFUSION TODAY, FAX DISCHARGE INFORMATION TO [facility] AT [phone]. NOTIFY [facility] OF DISCHARGE AT [phone]. Cholo Perez, CASE MANAGEMENT DCP- Discharge Planning Updated by [id number]: Cholo Perez on 05/29/18 4:[address] Patient Name: EDDIE DAVEY Encounter No: [id number] : 1970 Primary Insurance: MEDICAID [facility] DC Date: 05-30-2018 Planned Disposition: Home with Home Health External Planned Provider: TO BE DETERMINED DCP follow-up note: CM RECEIVED ORDER TO ARRANGE HOME HEALTH AND HOME IV INFUSION FOR DISCHARGE HOME. CM SPOKE TO PT AND SPOUSE IN ROOM, DISCUSSED DISCHARGE PLAN AND HOME HEALTH WELL HOME INFUSION COMPANIES. CM PROVIDED HOME HEALTH LISTING. PT SIGNED CHOICE FOR 1-[facility] DEPARTMENT AND 2- [facility] HOME HEALTH. PT HAS NO PREFERENCE ON HOME INFUSION PROVIDER. CM TO ARRANGE HOME HEALTH WITH HOME INFUSION 05-30-18 FOR DISCHARGE HOME. HILDA Estrada DCP- Discharge Planning Updated by [id number]: Cholo Perez on 05/29/18 10:[address] Patient Name: EDDIE DAVEY Encounter No: [id number] : 1970 Primary Insurance: MEDICAID [place] Anticipated DC Date: Planned Disposition: Home DCP follow-up note: CM RECEIVED CALL FROM PT'S SPOUSE WHO ASKED THAT CM MEET WITH PT IN ROOM THIS MORNING REGARDING DISCHARGE PLANNING. CM MET WITH PT AND SPOUSE IN ROOM REQUESTED. PT TEARFULLY REQUESTED TO BE DISCHARGED HOME WITH OUTPATIENT IV ANTIBIOTICS. CM INFORMED PT THAT BASED ON HIS HISTORY OF IV DRUG USE, THE DOCTOR MAY NOT BE WILLING FOR THAT PLAN. PT CRIED AND STATES HE WILL DO A DRUG TEST EVERYDAY AND PROMISES NOT TO USE DRUGS. PT WANTS TO BE CLOSER TO HOME AND IF POSSIBLE, TRANSFER BACK TO THE HOSPITAL THAT SENT HIM HERE. CM INFORMED PT THAT CM WILL NOTIFY NURSE. PT IS AWARE THAT THE DOCTOR WILL BE ROUNDING LATER TODAY AND WILL DISCUSS HIS DESIRES WITH THE DOCTOR. CM SPOKE TO NEIL GUIDO, NOTIFIED OF PT'S REQUEST; NEIL ADVISED THAT PT'S REQUESTS ARE NOT OPTIONS FOR CARE AT THIS TIME. CM TO CONTINUE TO FOLLOW AND ASSIST NEEDED. HILDA Estrada DCP- Discharge Planning Updated by [id number]: Cholo Perez on 05/24/18 3:[address] Patient Name: EDDIE DAVEY Admission Status: Urgent Accout number: [id number] Admission Date: 05-17-2018 : 1970 Admission Diagnosis:SHORTNESS OF BREATH Attending: ANA CHAVIRA Current LOS: 7 Anticipated DC Date: Planned Disposition: Home Primary Insurance: MEDICAID [place] Discharge Planning Comments: CM SPOKE TO PT AND SPOUSE IN ROOM AT PT'S REQUEST. EDDIE DAVEY provided verbal consent to discuss current and ongoing needs with/in the presence of: SPOUSE, DHEERAJ. PT HAS NO MEDICAL EQUIPMENT AT HOME AND PREFERS [facility] IF ANY IS NEEDED. PT HAS NOT ASSISTANCE AT HOME AND REPORTS LIVING AT HOME INDEPENDENTLY WITH HIS SPOUSE. PT REPORTS HISTORY OF DRUG USE IV AND THAT HE DID "SLIP UP ON Surreal InkBOWL TUESDAY AND SHOOT UP A LOAD." PT REPORTS THAT IT KILLED HIM AND HE IS NOT GOING TO EVER USE DRUGS AGAIN. PT REPORTS PLAN TO RETURN HOME WITH SPOUSE. PT REPORTS PLAN TO FILE FOR DISABILITY AND HAS BEEN DECLINED 3 TIMES FOR DISABILITY PREVIOUSLY. 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 CM EXPLAINED THAT ONCE A TREATMENT PLAN IS DEVELOPED, CM WOULD BE AVAILABLE TO ASSIST WITH ANY NEEDS. CM PROVIDED CM CONTACT INFORMATION TO PT AND HIS SPOUSE. CM TO FOLLOW AND ASSIST NEEDED. It Software Developer: Cholo Perez DCPIA - Discharge Planning Initial Assessment Updated by [id number]: Cholo Perez on 05/24/18 4:39 pm * Is the patient Alert and Oriented? Yes * How many steps to enter\\exit or inside your home? * PCP DR. JIMÉNEZ AT [facility] IN [place] * Pharmacy [facility] IN [place] * Preadmission Environment Home with Family * ADLs Independent * Equipment None * Other Equipment [facility] [place] - PREFERRED EQUIPMENT PROVIDER * List name and contact numbers for known caregivers / representatives who currently or will assist patient after discharge: DHEERAJ DAVEY, SPOUSE, * Verbal permission to speak to the caregivers and representatives has been obtained from the patient. Yes * Community resources currently utilized None * Please name any agencies selected above. NONE * Additional services required to return to the preadmission environment? Yes * Can the patient safely return to the preadmission environment? Yes * Has this patient been hospitalized within the prior 30 days at any hospital? No Coverage Notice Reviewer: [id number] - Cholo Perez Notice Issued Date-Time: 05/29/2018 16:59 Notice Type: Patient Choice Letter Notice Delivered To: Patient Relationship to Patient: Evaporator Repairer Name: Delivery Method: HAND - Hand Delivered Susanne Days: Prior Verbal Notification: Recipient Understood Notice: Yes Recipient Signature: Yes Med Rec Note Co-signed by Attending: Coverage Notice Comment: 1- [facility] DEPT, 2- [facility] Last DP export: 05/31/18 7:50 a Patient Name: EDDIE DAVEY Page 30654 at 0948 All edits/amendments must be made on the electronic document DICTATION DATE: 05/31/18947 FELT PULLER: JUSTINA 05/31/18947 RPT#: [id number] DC DATE: STATUS: ADM IN [facility] [address] [facility] [place] [address] END OF REPORT
--- NOTE | 2018-05-31 09:54 | NUR ---
RESTS IN BED WITH EYES CLOSED. CALL LIGHT IN REACH. REVIEWED AND AGREE WITH ASSESMENT.
--- NOTE | 2018-05-31 11:04 | MORECARE ---
CASE MANAGEMENT DISCHARGE SUMMARY PATIENT: EDDIE DAVEY UNIT: [id number] ADM DATE: 05/17/18 AGE: 48 : 72 SEX: M ROOM/BED: D.2130 AUTHOR: RANJIT,DOC PHYSICIAN: REFERRING PHYSICIAN: ANA CHAVIRA MD DATE OF SERVICE: 05/31/18 Discharge Plan Patient Name: EDDIE DAVEY Facility: [facility]:[place] : 1970 Planned Disposition: Home with Home Health Anticipated Discharge Date: 05/31/18 Discharge Date: Expected LOS: 14 Initial Reviewer: [id number] Initial Review Date: 05/17/2018 Generated: 05/31/18 12:03 pm Comments DCP- Discharge Planning Updated by [id number]: Gama Perez on 05/31/18 10:[address] Patient Name: EDDIE DAVEY Encounter No: [id number] : 1970 Primary Insurance: MEDICAID [place] Anticipated DC Date: 05-31-2018 Planned Disposition: Home with Home Health External Planned Provider: [facility] DCP follow-up note: CM RECEIVED CALL FROM HOME INFUSION SERVICES / [facility], , SPOKE TO MARNIE WHO INFORMED CM THAT HER BRAKE RIDER HAS JUST TOLD HER THAT THEY WILL NOT ACCEPT PT FOR HOME INFUSION SERVICES. CM WILL CONTINUE TO ATTEMPT TO LOCATE A HOME INFUSION COMPANY WILLING TO ACCEPT PT WITH HIS HISTORY OF DRUG USE. IF ACCEPTING INFUSION COMPANY CAN BE FOUND, [facility] WILL ACCEPT; FAX DISCHARGE INFORMATION TO [facility] AT [phone]. NOTIFY [facility] OF DISCHARGE AT [phone]. Gama Perez, CASE MANAGEMENT Appended by Gama Perez on 05/31/2018 9:42 CAR DROPPER: CM CALLED [facility], , SPOKE TO CARLOS ENRIQUE, PROVIDED REFERRAL INFORMATION WITH PT HISTORY. THEY WILL CONSIDER REFERRAL FOR HOME INFUSION. CM FAXED REFERRAL TO [facility] OFFICE AT [phone]. DR. YUSUF NOTIFIED. CM WAITING ADMISSION DETERMINATION FROM [facility]; [facility] WILL ACCEPT; FAX DISCHARGE INFORMATION TO [facility] AT [phone]. NOTIFY [facility] OF DISCHARGE AT [phone]. GAMA PEREZ, CASE MANAGEMENT Appended by Gama Perez on 05/31/2018 11:02 CAR DROPPER: CM CALLED [facility], , SPOKE TO CARLOS ENRIQUE, WHO ADVISED THEY WILL ACCEPT FOR OUTPATIENT INFUSION SERVICES. THEY WILL DELIVER MEDICATIONS AND PROVIDE TEACHING IN HOSPITAL ROOM FOR DISCHARGE HOME THIS AFTERNOON FOR EVENING INFUSION AT HOME. PT'S COPAY IS $9 FOR TOTAL INFUSION SERVICES. CM SPOKE TO PT IN ROOM WHO IS IN AGREEMENT WITH PLAN FOR DISCHARGE HOME TODAY. CM NOTIFIED ANA AT [facility]. [facility] TO DELIVER MEDS AND SUPPLIES WELL TEACHING IN HOSPITAL ROOM FOR DISCHARGE HOME THIS AFTERNOON AFTER MORNING INFUSION IS COMPLETED; [facility] WILL ACCEPT; FAX DISCHARGE INFORMATION TO [facility] AT [phone]. NOTIFY [facility] OF DISCHARGE AT [phone]. GAMA PEREZ, CASE MANAGEMENT DCP- Discharge Planning Updated by [id number]: Gama Perez on 05/30/18 3:[address] Patient Name: EDDIE DAVEY Encounter No: [id number] : 1970 Primary Insurance: MEDICAID [facility] DC Date: 05-31-2018 Planned Disposition: Home with Home Health External Planned Provider: [facility], [place] OFFICE; [facility] DCP follow-up note: CM RECEIVED CALL FROM [facility] WHO INFORMED CM THAT THEIR PHARMACISTS WILL NOT ACCEPT PT. CM NOTIFIED NEIL GUIDO. CM CALLED HOME INF[facility] SERVICES / [facility], , SPOKE TO MARNIE WHO WILL CHECK WITH PHARMACY AND RISK MANAGEMENT TO SEE IF THEY WILL CONSIDER PT. CM RECEIVED CALL BACK AND THEY WILL ACCEPT IF PT HAS DRUG TESTING AND RANDOM DRUG SCREENING DURING PROCESS. KARLA WILL HAVE TO MEET WITH PT AND HAVE HIM SIGN AGREEMENT TO NOT USE IV DRUGS AND DELIVER MEDICATIONS WELL PROVIDE TEACHING TO PT AND SPOUSE PRIOR TO DISCHARGE HOME TOMORROW CM NOTIFIED PT AND DR. YUSUF IN ROOM. CM NOTIFIED NEIL GUIDO AND RECEIVED ORDER FOR DRUG TESTING TODAY. CM WAITING HOME IN[facility] SERVICES / [facility], TO MEET WITH PT TOMORROW AND DELIVER MEDICATIONS FOR PT'S DISCHARGE HOME TOMORROW. [facility] IN [place] TO ACCEPT PATIENT FOR HOME FOLLOW UP. CM NOTIFIED [facility] OF PT'S PLANNED DISCHARGE TOMORROW. FOR DISCHARGE 05-31-18 AFTER ARRANGEMENTS COMPLETED BY HOME INFUSION SERVICES / [facility], FAX DISCHARGE INFORMATION TO [facility] AT [phone]. NOTIFY [facility] OF DISCHARGE AT [phone]. Gama Perez CASE MANAGEMENT DCP- Discharge Planning Updated by [id number]: Gama Perez on 05/30/18 11:[address] Patient Name: EDDIE DAVEY Encounter No: [id number] : 1970 Primary Insurance: MEDICAID [place] Anticipated DC Date: 05-30-2018 Planned Disposition: Home with Home Health External Planned Providers: [facility], [place] OFFICE; [facility] DCP follow-up note: CM RECEIVED ORDER FOR NEBULIZER AND MEDICATIONS. CM SPOKE TO PT IN ROOM WHO REPORTS ALREADY HAVING NEBULIZER AT HOME AND NEEDED PRESCRIPTION TO FILL AT PHARMACY. PT REPORTS ABILITY TO AFFORD HIS NEBULIZER MEDICATIONS. CM DISCUSSED THAT [facility] HAS BOUGHT OUT [facility], PT REPORTS THEY REMAIN HIS FIRST CHOICE. PT WANTS TO GO HOME TODAY, FAMILY TO TRANSPORT. CM CALLED [facility], , SPOKE TO ANA, WHO TOOK REFERRAL AND WILL REVIEW AND LET CM KNOW IF THEY CAN MEET PT'S NEEDS. CM FAXED REFERRAL TO [facility] AT [phone]. CM CALLED [facility], , PROVIDED REFERRAL TO RUTH[facility]. CM PROVIDED [facility]UTH[facility] WITH DR. MEDELLIN OFFICE AND PAGER NUMBER. CM FAXED REFERRAL TO [facility] AT [phone]. KIERRA PLANS FOR PT TO HAVE LAST DOSE OF ANCEF AT HOSPITAL FOR 1500 HOURS. [facility] WILL DELIVER MEDICATIONS AND PROVIDE TEACHING TO PT AND SPOUSE PRIOR TO DISCHARGE HOME TODAY. CM WAITING FINAL ACCEPTANCE BY [facility]. Gama Perez, CASE MANAGEMENT Appended by Gama Perez on 05/30/2018 12:43 CAR DROPPER: KIERRA PLANS FOR PT TO HAVE LAST DOSE OF ANCEF AT HOSPITAL FOR 1730 HOURS. [facility] WILL DELIVER MEDICATIONS AND PROVIDE TEACHING TO PT AND SPOUSE PRIOR TO DISCHARGE HOME TODAY. CM RECEIVED CALL FROM ANA OF [facility], [facility] IN [place] TO ACCEPT PATIENT FOR HOME FOLLOW UP. FOR DISCHARGE AFTER 1730 INFUSION TODAY, FAX DISCHARGE INFORMATION TO [facility] AT [phone]. NOTIFY [facility] OF DISCHARGE AT [phone]. HILDA Estrada DCP- Discharge Planning Updated by [id number]: Gama Perez on 05/29/18 4:[address] Patient Name: EDDIE DAVEY Encounter No: [id number] : 1970 Primary Insurance: MEDICAID [place] Anticipated DC Date: 05-30-2018 Planned Disposition: Home with Home Health External Planned Provider: TO BE DETERMINED DCP follow-up note: CM RECEIVED ORDER TO ARRANGE HOME HEALTH AND HOME IV INFUSION FOR DISCHARGE HOME. CM SPOKE TO PT AND SPOUSE IN ROOM, DISCUSSED DISCHARGE PLAN AND HOME HEALTH WELL HOME INFUSION COMPANIES. CM PROVIDED HOME HEALTH LISTING. PT SIGNED CHOICE FOR [address] [place] [address] [address] [place] [address] HOME HEALTH. PT HAS NO PREFERENCE ON HOME INFUSION PROVIDER. CM TO ARRANGE HOME HEALTH WITH HOME INFUSION 05-30-18 FOR DISCHARGE HOME. HILDA Estrada DCP- Discharge Planning Updated by [id number]: Gama Perez on 05/29/18 10:[address] Patient Name: EDDIE DAVEY Encounter No: [id number] : 1970 Primary Insurance: MEDICAID [place] Anticipated DC Date: Planned Disposition: Home DCP follow-up note: CM RECEIVED CALL FROM PT'S SPOUSE WHO ASKED THAT CM MEET WITH PT IN ROOM THIS MORNING REGARDING DISCHARGE PLANNING. CM MET WITH PT AND SPOUSE IN ROOM REQUESTED. PT TEARFULLY REQUESTED TO BE DISCHARGED HOME WITH OUTPATIENT IV ANTIBIOTICS. CM INFORMED PT THAT BASED ON HIS HISTORY OF IV DRUG USE, THE DOCTOR MAY NOT BE WILLING FOR THAT PLAN. PT CRIED AND STATES HE WILL DO A DRUG TEST EVERYDAY AND PROMISES NOT TO USE DRUGS. PT WANTS TO BE CLOSER TO HOME AND IF POSSIBLE, TRANSFER BACK TO THE HOSPITAL THAT SENT HIM HERE. CM INFORMED PT THAT CM WILL NOTIFY ENVIRONMENTAL HEALTH AND SAFETY INTERN. PT IS AWARE THAT THE DOCTOR WILL BE ROUNDING LATER TODAY AND WILL DISCUSS HIS DESIRES WITH THE DOCTOR. CM SPOKE TO NEIL GUIOD, NOTIFIED OF PT'S REQUEST; NEIL ADVISED THAT PT'S REQUESTS ARE NOT OPTIONS FOR CARE AT THIS TIME. CM TO CONTINUE TO FOLLOW AND ASSIST NEEDED. HILDA Estrada DCP- Discharge Planning Updated by [id number]: Gama Perez on 05/24/18 3:[address] Patient Name: EDDIE DAVEY Admission Status: Urgent Accout number: [id number] Admission Date: 05-17-2018 : 1970 Admission Diagnosis:SHORTNESS OF BREATH Attending: ANA CHAVIRA Current LOS: 7 Anticipated DC Date: Planned Disposition: Home Primary Insurance: MEDICAID [place] Discharge Planning Comments: CM SPOKE TO PT AND SPOUSE IN ROOM AT PT'S REQUEST. EDDIE DAVEY provided verbal consent to discuss current and ongoing needs with/in the presence of: SPOUSE, DHEERAJ. PT HAS NO MEDICAL EQUIPMENT AT HOME AND PREFERS [facility] IF ANY IS NEEDED. PT HAS NOT ASSISTANCE AT HOME AND REPORTS LIVING AT HOME INDEPENDENTLY WITH HIS SPOUSE. PT REPORTS HISTORY OF DRUG USE IV AND THAT HE DID "SLIP UP ON SUPERBOWL TUESDAY AND SHOOT UP A LOAD." PT REPORTS THAT IT KILLED HIM AND HE IS NOT GOING TO EVER USE DRUGS AGAIN. PT REPORTS PLAN TO RETURN HOME WITH SPOUSE. PT REPORTS PLAN TO FILE FOR DISABILITY AND HAS BEEN DECLINED 3 TIMES FOR DISABILITY PREVIOUSLY. 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 CM EXPLAINED THAT ONCE A TREATMENT PLAN IS DEVELOPED, CM WOULD BE AVAILABLE TO ASSIST WITH ANY NEEDS. CM PROVIDED CM CONTACT INFORMATION TO PT AND HIS SPOUSE. CM TO FOLLOW AND ASSIST NEEDED. Pigment Furnace Tender: Gama Cindy DCPIA - Discharge Planning Initial Assessment Updated by [id number]: Gama Perez on 05/24/18 4:39 pm * Is the patient Alert and Oriented? Yes * How many steps to enter\\exit or inside your home? * PCP DR. JIMÉNEZ AT [facility] IN [place] * Pharmacy [facility] IN [place] * Preadmission Environment Home with Family * ADLs Independent * Equipment None * Other Equipment [facility] - PREFERRED EQUIPMENT PROVIDER * List name and contact numbers for known caregivers / representatives who currently or will assist patient after discharge: DHEERAJ DAVEY, SPOUSE, * Verbal permission to speak to the caregivers and representatives has been obtained from the patient. Yes * Community resources currently utilized None * Please name any agencies selected above. NONE * Additional services required to return to the preadmission environment? Yes * Can the patient safely return to the preadmission environment? Yes * Has this patient been hospitalized within the prior 30 days at any hospital? No Coverage Notice Reviewer: [id number] - Gama Perez Notice Issued Date-Time: 05/29/2018 16:59 Notice Type: Patient Choice Letter Notice Delivered To: Patient Relationship to Patient: Financial Services Rep Name: Delivery Method: HAND - Hand Delivered Susanne Days: Prior Verbal Notification: Recipient Understood Notice: Yes Recipient Signature: Yes Med Rec Note Co-signed by Attending: Coverage Notice Comment: 1- [facility] DEPT, 2- [facility] DP export: 05/31/18 8:48 a Patient Name: EDDIE DAVEY Page 37241 at 1104 All edits/amendments must be made on the electronic document DICTATION DATE: 05/31/181102 FLOUR DISTRIBUTOR: JUSTINA 05/31/181102 RPT#: [id number] DC DATE: STATUS: ADM IN [facility] [address] [place] [address] END OF REPORT
[2018-05-31] MEDS ORDERED: ATROVENT 0.02%2.5 ML UPD (11:40)
[2018-05-31] MEDS ORDERED: HUMULIN R100 U/ML SC (11:47)
--- NOTE | 2018-05-31 14:33 | NUR ---
PER DR CHAVIRA I CALLED IN ZOFRAN [address] [facility] IN [place].
--- NOTE | 2018-05-31 15:37 | MORECARE ---
CASE MANAGEMENT DISCHARGE SUMMARY PATIENT: EDDIE DAVEY UNIT: [id number] ADM DATE: 05/17/18 AGE: 48 : 72 SEX: M ROOM/BED: D.2130 AUTHOR: RANJIT,DOC PHYSICIAN: REFERRING PHYSICIAN: ANA CHAVIRA MD DATE OF SERVICE: 05/31/18 Discharge Plan Patient Name: EDDIE DAVEY Facility: [facility]:[place] : 1970 Planned Disposition: Home with Home Health Anticipated Discharge Date: 05/31/18 Discharge Date: Expected LOS: 14 Initial Reviewer: [id number] Initial Review Date: 05/17/2018 Generated: 05/31/18 4:36 pm Comments DCP- Discharge Planning Updated by [id number]: Gama Perez on 05/31/18 10:[address] Patient Name: EDDIE DAVEY Encounter No: [id number] : 1970 Primary Insurance: MEDICAID [place] Anticipated DC Date: 05-31-2018 Planned Disposition: Home with Home Health External Planned Provider: [facility] DCP follow-up note: CM RECEIVED CALL FROM [facility] / [facility], , SPOKE TO MARNIE WHO INFORMED CM THAT HER BEAMER HAND HAS JUST TOLD HER THAT THEY WILL NOT ACCEPT PT FOR HOME INFUSION SERVICES. CM WILL CONTINUE TO ATTEMPT TO LOCATE A HOME INFUSION COMPANY WILLING TO ACCEPT PT WITH HIS HISTORY OF DRUG USE. IF ACCEPTING INFUSION COMPANY CAN BE FOUND, [facility] WILL ACCEPT; FAX DISCHARGE INFORMATION TO [facility] AT [phone]. NOTIFY [facility] OF DISCHARGE AT [phone]. Gama Perez, CASE MANAGEMENT Appended by Gama Perez on 05/31/2018 9:42 WET PLANT OPERATOR: CM CALLED [facility], , SPOKE TO CARLOS ENRIQUE, PROVIDED REFERRAL INFORMATION WITH PT HISTORY. THEY WILL CONSIDER REFERRAL FOR HOME INFUSION. CM [facility]ED REFERRAL [facility] AT [phone]. DR. YUSUF NOTIFIED. CM WAITING ADMISSION DETERMINATION FROM [facility]; [facility] WILL ACCEPT; FAX DISCHARGE INFORMATION TO [facility] AT [phone]. NOTIFY [facility] OF DISCHARGE AT [phone]. GAMA PEREZ, CASE MANAGEMENT Appended by Gama Perez on 05/31/2018 11:02 WET PLANT OPERATOR: CM CALLED [facility], , SPOKE TO CARLOS ENRIQUE, WHO ADVISED THEY WILL ACCEPT FOR OUTPATIENT INFUSION SERVICES. THEY WILL DELIVER MEDICATIONS AND PROVIDE TEACHING IN HOSPITAL ROOM FOR DISCHARGE HOME THIS AFTERNOON FOR EVENING INFUSION AT HOME. PT'S COPAY IS $9 FOR TOTAL INFUSION SERVICES. CM SPOKE TO PT IN ROOM WHO IS IN AGREEMENT WITH PLAN FOR DISCHARGE HOME TODAY. CM NOTIFIED ANA AT [facility]. [facility] TO DELIVER MEDS AND SUPPLIES WELL TEACHING IN HOSPITAL ROOM FOR DISCHARGE HOME THIS AFTERNOON AFTER MORNING INFUSION IS COMPLETED; [facility] WILL ACCEPT; FAX DISCHARGE INFORMATION TO [facility] AT [phone]. NOTIFY [facility] OF DISCHARGE AT [phone]. GAMA PEREZ, CASE MANAGEMENT DCP- Discharge Planning Updated by [id number]: Gama Perez on 05/30/18 3:[address] Patient Name: EDDIE DAVEY Encounter No: [id number] : 1970 Primary Insurance: MEDICAID [facility] DC Date: 05-31-2018 Planned Disposition: Home with Home Health External Planned Provider: [facility] [place] OFFICE; [facility] DCP follow-up note: CM RECEIVED CALL FROM [facility] WHO INFORMED CM THAT THEIR PHARMACISTS WILL NOT ACCEPT PT. CM NOTIFIED NEIL GUIDO. CM CALLED [facility] / [facility], , SPOKE TO MARNIE WHO WILL CHECK WITH PHARMACY AND RISK MANAGEMENT TO SEE IF THEY WILL CONSIDER PT. CM RECEIVED CALL BACK AND THEY WILL ACCEPT IF PT HAS DRUG TESTING AND RANDOM DRUG SCREENING DURING PROCESS. KARLA WILL HAVE TO MEET WITH PT AND HAVE HIM SIGN AGREEMENT TO NOT USE IV DRUGS AND DELIVER MEDICATIONS WELL PROVIDE TEACHING TO PT AND SPOUSE PRIOR TO DISCHARGE HOME TOMORROW CM NOTIFIED PT AND DR. YUSUF IN ROOM. CM NOTIFIED NEIL GUIDO AND RECEIVED ORDER FOR DRUG TESTING TODAY. CM WAITING [facility] / [facility], TO MEET WITH PT TOMORROW AND DELIVER MEDICATIONS FOR PT'S DISCHARGE HOME TOMORROW. [facility] IN [place] TO ACCEPT PATIENT FOR HOME FOLLOW UP. CM NOTIFIED [facility] OF PT'S PLANNED DISCHARGE TOMORROW. FOR DISCHARGE 05-31-18 AFTER ARRANGEMENTS COMPLETED BY [facility] / [facility], FAX DISCHARGE INFORMATION TO [facility] AT [phone]. NOTIFY [facility] OF DISCHARGE AT [phone]. Gama Perez CASE MANAGEMENT DCP- Discharge Planning Updated by [email or web address]: Gama Perez on 05/30/18 11:[address] Patient Name: EDDIE DAVEY Encounter No: [id number] : 1970 Primary Insurance: MEDICAID [place] Anticipated DC Date: 05-30-2018 Planned Disposition: Home with Home Health External Planned Providers: [facility] [place] [facility]; [facility] DCP follow-up note: CM RECEIVED ORDER FOR NEBULIZER AND MEDICATIONS. CM SPOKE TO PT IN ROOM WHO REPORTS ALREADY HAVING NEBULIZER AT HOME AND NEEDED PRESCRIPTION TO FILL AT PHARMACY. PT REPORTS ABILITY TO AFFORD HIS NEBULIZER MEDICATIONS. CM DISCUSSED THAT [facility] HAS BOUGHT OUT [facility], PT REPORTS THEY REMAIN HIS FIRST CHOICE. PT WANTS TO GO HOME TODAY, FAMILY TO TRANSPORT. CM CALLED [facility], , SPOKE TO ANA, WHO TOOK REFERRAL AND WILL REVIEW AND LET CM KNOW IF THEY CAN MEET PT'S NEEDS. CM FAXED REFERRAL TO [facility] AT [phone]. CM CALLED [facility], , PROVIDED REFERRAL TO RUTHIE. CM PROVIDED RUTHIE WITH DR. MEDELLIN OFFICE AND PAGER NUMBER. CM FAXED REFERRAL TO [facility] AT [phone]. KIERRA PLANS FOR PT TO HAVE LAST DOSE OF ANCEF AT HOSPITAL FOR 1500 HOURS. [facility] WILL DELIVER MEDICATIONS AND PROVIDE TEACHING TO PT AND SPOUSE PRIOR TO DISCHARGE HOME TODAY. CM WAITING FINAL ACCEPTANCE BY [facility]. Gama Perez, CASE MANAGEMENT Appended by Gama Perez on 05/30/2018 12:43 WET PLANT OPERATOR: KIERRA PLANS FOR PT TO HAVE LAST DOSE OF ANCEF AT HOSPITAL FOR 1730 HOURS. [facility] WILL DELIVER MEDICATIONS AND PROVIDE TEACHING TO PT AND SPOUSE PRIOR TO DISCHARGE HOME TODAY. CM RECEIVED CALL FROM ANA OF [facility], [facility] IN [place] TO ACCEPT PATIENT FOR HOME FOLLOW UP. FOR DISCHARGE AFTER 1730 INFUSION TODAY, FAX DISCHARGE INFORMATION TO [facility] AT [phone]. NOTIFY [facility] OF DISCHARGE AT [phone]. HILDA Estrada DCP- Discharge Planning Updated by [id number]: Gama Perez on 05/29/18 4:[address] Patient Name: EDDIE DAVEY Encounter No: [id number] : 1970 Primary Insurance: [place]ID [place] Anticipated DC Date: 05-30-2018 Planned Disposition: Home with Home Health External Planned Provider: TO BE DETERMINED DCP follow-up note: CM RECEIVED ORDER TO ARRANGE HOME HEALTH AND HOME IV INFUSION FOR DISCHARGE HOME. CM SPOKE TO PT AND SPOUSE IN ROOM, DISCUSSED DISCHARGE PLAN AND HOME HEALTH WELL HOME INFUSION COMPANIES. CM PROVIDED HOME HEALTH LISTING. PT SIGNED CHOICE FOR [address] [place] [address] [place] [address] HOME HEALTH. PT HAS NO PREFERENCE ON HOME INFUSION PROVIDER. CM TO ARRANGE HOME HEALTH WITH HOME INFUSION 05-30-18 FOR DISCHARGE HOME. HILDA Estrada DCP- Discharge Planning Updated by [id number]: Gama Perez on 05/29/18 10:[address] Patient Name: EDDIE DAVEY Encounter No: [id number] : 1970 Primary Insurance: MEDICAID [place] Anticipated DC Date: Planned Disposition: Home DCP follow-up note: CM RECEIVED CALL FROM PT'S SPOUSE WHO ASKED THAT CM MEET WITH PT IN ROOM THIS MORNING REGARDING DISCHARGE PLANNING. CM MET WITH PT AND SPOUSE IN ROOM REQUESTED. PT TEARFULLY REQUESTED TO BE DISCHARGED HOME WITH OUTPATIENT IV ANTIBIOTICS. CM INFORMED PT THAT BASED ON HIS HISTORY OF IV DRUG USE, THE DOCTOR MAY NOT BE WILLING FOR THAT PLAN. PT CRIED AND STATES HE WILL DO A DRUG TEST EVERYDAY AND PROMISES NOT TO USE DRUGS. PT WANTS TO BE CLOSER TO HOME AND IF POSSIBLE, TRANSFER BACK TO THE HOSPITAL THAT SENT HIM HERE. CM INFORMED PT THAT CM WILL NOTIFY CONTENT ENGINEER. PT IS AWARE THAT THE DOCTOR WILL BE ROUNDING LATER TODAY AND WILL DISCUSS HIS DESIRES WITH THE DOCTOR. CM SPOKE TO NEIL GUIDO, NOTIFIED OF PT'S REQUEST; NEIL ADVISED THAT PT'S REQUESTS ARE NOT OPTIONS FOR CARE AT THIS TIME. CM TO CONTINUE TO FOLLOW AND ASSIST NEEDED. HILDA Estrada DCP- Discharge Planning Updated by [id number]: Gama Perez on 05/24/18 3:[address] Patient Name: EDDIE DAVEY Admission Status: Urgent Accout number: [id number] Admission Date: 05-17-2018 : 1970 Admission Diagnosis:SHORTNESS OF BREATH Attending: ANA CHAVIRA Current LOS: 7 Anticipated DC Date: Planned Disposition: Home Primary Insurance: MEDICAID [place] Discharge Planning Comments: CM SPOKE TO PT AND SPOUSE IN ROOM AT PT'S REQUEST. EDDIE DAVEY provided verbal consent to discuss current and ongoing needs with/in the presence of: SPOUSE, DHEERAJ. PT HAS NO MEDICAL EQUIPMENT AT HOME AND PREFERS [facility] IF ANY IS NEEDED. PT HAS NOT ASSISTANCE AT HOME AND REPORTS LIVING AT HOME INDEPENDENTLY WITH HIS SPOUSE. PT REPORTS HISTORY OF DRUG USE IV AND THAT HE DID "SLIP UP ON SUPERBOWL TUESDAY AND SHOOT UP A LOAD." PT REPORTS THAT IT KILLED HIM AND HE IS NOT GOING TO EVER USE DRUGS AGAIN. PT REPORTS PLAN TO RETURN HOME WITH SPOUSE. PT REPORTS PLAN TO FILE FOR DISABILITY AND HAS BEEN DECLINED 3 TIMES FOR DISABILITY PREVIOUSLY. 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 CM EXPLAINED THAT ONCE A TREATMENT PLAN IS DEVELOPED, CM WOULD BE AVAILABLE TO ASSIST WITH ANY NEEDS. CM PROVIDED CM CONTACT INFORMATION TO PT AND HIS SPOUSE. CM TO FOLLOW AND ASSIST NEEDED. Clay Shop Supervisor: Gama Cindy DCPIA - Discharge Planning Initial Assessment Updated by [id number]: Gama Perez on 05/24/18 4:39 pm * Is the patient Alert and Oriented? Yes * How many steps to enter\\exit or inside your home? * PCP DR. JIMÉNEZ AT [facility] IN [place] * Pharmacy [facility] IN [place] * Preadmission Environment Home with Family * ADLs Independent * Equipment None * Other Equipment [facility] - PREFERRED EQUIPMENT PROVIDER * List name and contact numbers for known caregivers / representatives who currently or will assist patient after discharge: DHEERAJ DAVEY, SPOUSE, * Verbal permission to speak to the caregivers and representatives has been obtained from the patient. Yes * Community resources currently utilized None * Please name any agencies selected above. NONE * Additional services required to return to the preadmission environment? Yes * Can the patient safely return to the preadmission environment? Yes * Has this patient been hospitalized within the prior 30 days at any hospital? No Coverage Notice Reviewer: [id number] - Gama Perez Notice Issued Date-Time: 05/29/2018 16:59 Notice Type: Patient Choice Letter Notice Delivered To: Patient Relationship to Patient: Chief Of Staff Name: Delivery Method: HAND - Hand Delivered Susanne Days: Prior Verbal Notification: Recipient Understood Notice: Yes Recipient Signature: Yes Med Rec Note Co-signed by Attending: Coverage Notice Comment: 1- [facility] DEPT, 2- [facility] DP export: 05/31/18 10:03 a Patient Name: EDDIE DAVEY Page [id number] at 1537 All edits/amendments must be made on the electronic document DICTATION DATE: 05/31/18 153 QUALITY CONTROL CLERK: JUSTINA 05/31/18 1536 RPT#: [id number] DC DATE: STATUS: ADM IN [facility] [address] [place] [address] END OF REPORT
--- NOTE | 2018-05-31 15:37 | NUR ---
PT D/C'D TO HOME, D/C INSTRUCTIONS GIVEN WITH VERBAL UNDERSTANDING FROM PT AND SPOUSE. TAKEN TO PRIVATE VEHICLE VIA WHEELCHAIR.
--- NOTE | 2018-05-31 15:47 | MORECARE ---
CASE MANAGEMENT DISCHARGE SUMMARY PATIENT: EDDIE DAVEY UNIT: [id number] ADM DATE: 05/17/18 AGE: 48 : [birth year] SEX: M ROOM/BED: D.2130 AUTHOR: RANJITDOC PHYSICIAN: REFERRING PHYSICIAN: ANA CHAVIRA MD DATE OF SERVICE: 05/31/18 Discharge Plan Patient Name: EDDIE DAVEY Facility: [facility] : 1970 Planned Disposition: Home with Home Health Anticipated Discharge Date: 05/31/18 Discharge Date: 05/31/2018 Expected LOS: 14 Initial Reviewer: [id number] Initial Review Date: 05/17/2018 Generated: 05/31/18 4:47 pm Comments DCP- Discharge Planning Updated by [id number]: Gama Perez on 05/31/18 2:[address] Patient Name: EDDIE DAVEY Encounter No: [id number] : 1970 Primary Insurance: MEDICAID [place] Anticipated DC Date: 05-31-2018 Planned Disposition: Home with Home Health External Planned Provider: [facility] DCP follow-up note: MALISSA FROM [facility] ARRIVED, DELIVERED MEDS AND SUPPLIES WELL PROVIDED TEACHING IN HOSPITAL ROOM FOR DISCHARGE HOME. CM MET WITH MALISSA, PT AND SPOUSE IN ROOM, ALL AGREED THAT PT'S SPOUSE CAN PROVIDE INFUSION AT HOME. CM FAXED DISCHARGE INFORMATION TO [facility] AT [phone]. CM NOTIFIED [facility] OF DISCHARGE AT [phone], THEY WILL ADMIT TOMORROW AT 1000 AM. FLOW COODINATOR AND BEDSIDE NURSE NOTIFIED. GAMA PEREZ, CASE MANAGEMENT DCP- Discharge Planning Updated by [id number]: Gama Perez on 05/31/18 10:[address] Patient Name: EDDIE DAVEY Encounter No: [id number] : 1970 Primary Insurance: MEDICAID [place] Anticipated DC Date: 05-31-2018 Planned Disposition: Home with Home Health External Planned Provider: [facility] DCP follow-up note: CM RECEIVED CALL FROM HOME INFUSION SERVICES / [facility], , SPOKE TO MARNIE WHO INFORMED CM THAT HER [employer]CKSHOT [employer]AGE OPERATOR HAS JUST TOLD HER THAT THEY WILL NOT ACCEPT PT FOR HOME INFUSION SERVICES. CM WILL CONTINUE TO ATTEMPT TO LOCATE A HOME INFUSION COMPANY WILLING TO ACCEPT PT WITH HIS HISTORY OF DRUG USE. IF ACCEPTING INFUSION COMPANY CAN BE FOUND, [facility] WILL ACCEPT; FAX DISCHARGE INFORMATION TO [facility] AT [phone]. NOTIFY JASWINDER OF DISCHARGE AT [phone]. Gama Perez, CASE MANAGEMENT Appended by Gama Perez on 05/31/2018 9:42 SOFTWARE DEPLOYMENT ENGINEER: CM CALLED [facility], , SPOKE TO CARLOS ENRIQUE, PROVIDED REFERRAL INFORMATION WITH PT HISTORY. THEY WILL CONSIDER REFERRAL FOR HOME INFUSION. CM FAXED REFERRAL TO [facility] AT [phone]. DR. YUSUF NOTIFIED. CM WAITING ADMISSION DETERMINATION FROM [facility]; [facility] WILL ACCEPT; FAX DISCHARGE INFORMATION TO [facility] AT [phone]. NOTIFY JASWINDER OF DISCHARGE AT [phone]. GAMA PEREZ CASE MANAGEMENT Appended by Gama Perez on 05/31/2018 11:02 SOFTWARE DEPLOYMENT ENGINEER: CM CALLED [facility], , SPOKE TO CARLOS ENRIQUE, WHO ADVISED THEY WILL ACCEPT FOR OUTPATIENT INFUSION SERVICES. THEY WILL DELIVER MEDICATIONS AND PROVIDE TEACHING IN HOSPITAL ROOM FOR DISCHARGE HOME THIS AFTERNOON FOR EVENING INFUSION AT HOME. PT'S COPAY IS $9 FOR TOTAL INFUSION SERVICES. CM SPOKE TO PT IN ROOM WHO IS IN AGREEMENT WITH PLAN FOR DISCHARGE HOME TODAY. CM NOTIFIED ANA AT [facility]. [facility] TO DELIVER MEDS AND SUPPLIES WELL TEACHING IN HOSPITAL ROOM FOR DISCHARGE HOME THIS AFTERNOON AFTER MORNING INFUSION IS COMPLETED; [facility] WILL ACCEPT; FAX DISCHARGE INFORMATION TO [facility] AT [phone]. NOTIFY JASWINDER OF DISCHARGE AT [phone]. GAMA PEREZ CASE MANAGEMENT DCP- Discharge Planning Updated by [id number]: Gama Perez on 05/30/18 3:[address] Patient Name: EDDIE DAVEY Encounter No: [id number] : 1970 Primary Insurance: MEDICAID [facility] DC Date: 05-31-2018 Planned Disposition: Home with Home Health External Planned Provider: [facility]; [facility] follow-up note: CM RECEIVED CALL FROM [facility] OF [facility] WHO INFORMED CM THAT THEIR PHARMACISTS WILL NOT ACCEPT PT. CM NOTIFIED NEIL GUIDO. CM CALLED HOME INFUSION SERVICES / [facility], , SPOKE TO MARNIE WHO WILL CHECK WITH PHARMACY AND RISK MANAGEMENT TO SEE IF THEY WILL CONSIDER PT. CM RECEIVED CALL BACK AND THEY WILL ACCEPT IF PT HAS DRUG TESTING AND RANDOM DRUG SCREENING DURING PROCESS. KARLA WILL HAVE TO MEET WITH PT AND HAVE HIM SIGN AGREEMENT TO NOT USE IV DRUGS AND DELIVER MEDICATIONS WELL PROVIDE TEACHING TO PT AND SPOUSE PRIOR TO DISCHARGE HOME TOMORROW CM NOTIFIED PT AND DR. YUSUF IN ROOM. CM NOTIFIED NEIL GUIDO AND RECEIVED ORDER FOR DRUG TESTING TODAY. CM WAITING HOME INF[facility]ION SERVICES / [facility], TO MEET WITH PT TOMORROW AND DELIVER MEDICATIONS FOR PT'S DISCHARGE HOME TOMORROW. [facility] IN [place] TO ACCEPT PATIENT FOR HOME FOLLOW UP. CM NOTIFIED [facility] OF PT'S PLANNED DISCHARGE TOMORROW. FOR DISCHARGE 05-31-18 AFTER ARRANGEMENTS COMPLETED BY HOME INF[facility]ION SERVICES / [facility], FAX DISCHARGE INFORMATION TO [facility] AT [phone]. NOTIFY SAGE OF DISCHARGE AT [phone]. Gama Perez, CASE MANAGEMENT DCP- Discharge Planning Updated by [id number]: Gama Perez on 05/30/18 11:[address] Patient Name: EDDIE DAVEY Encounter No: [id number] : 1970 Primary Insurance: MEDICAID [facility] DC Date: 05-30-2018 Planned Disposition: Home with Home Health External Planned Providers: [facility], [place] OFFICE; [facility] follow-up note: CM RECEIVED ORDER FOR NEBULIZER AND MEDICATIONS. CM SPOKE TO PT IN ROOM WHO REPORTS ALREADY HAVING NEBULIZER AT HOME AND NEEDED PRESCRIPTION TO FILL AT PHARMACY. PT REPORTS ABILITY TO AFFORD HIS NEBULIZER MEDICATIONS. CM DISCUSSED THAT [facility] HAS BOUGHT OUT [facility], PT REPORTS THEY REMAIN HIS FIRST CHOICE. PT WANTS TO GO HOME TODAY, FAMILY TO TRANSPORT. CM CALLED [facility], , SPOKE TO ANA, WHO TOOK REFERRAL AND WILL REVIEW AND LET CM KNOW IF THEY CAN MEET PT'S NEEDS. CM FAXED REFERRAL TO [facility] AT [phone]. CM CALLED [facility], , PROVIDED REFERRAL TO RUTHIE. CM PROVIDED RUTHIE WITH DR. MEDELLIN OFFICE AND PAGER NUMBER. CM FAXED REFERRAL TO [facility] AT [phone]. [facility] PLANS FOR PT TO HAVE LAST DOSE OF ANCEF AT HOSPITAL FOR 1500 HOURS. [facility] WILL DELIVER MEDICATIONS AND PROVIDE TEACHING TO PT AND SPOUSE PRIOR TO DISCHARGE HOME TODAY. CM WAITING FINAL ACCEPTANCE BY [facility]. Gama Perez, CASE MANAGEMENT Appended by Gama Perez on 05/30/2018 12:43 SOFTWARE DEPLOYMENT ENGINEER: [facility] PLANS FOR PT TO HAVE LAST DOSE OF ANCEF AT HOSPITAL FOR 1730 HOURS. [facility] WILL DELIVER MEDICATIONS AND PROVIDE TEACHING TO PT AND SPOUSE PRIOR TO DISCHARGE HOME TODAY. CM RECEIVED CALL FROM ANA OF [facility] [place] TO ACCEPT PATIENT FOR HOME FOLLOW UP. FOR DISCHARGE AFTER 1730 INFUSION TODAY, FAX DISCHARGE INFORMATION TO [facility] AT [phone]. NOTIFY SAGE OF DISCHARGE AT [phone]. HILDA Estrada DCP- Discharge Planning Updated by [id number]: Gama Perez on 05/29/18 4:[address] Patient Name: EDDIE DAVEY Encounter No: [id number] : 1970 Primary Insurance: MEDICAID [place] Anticipated DC Date: 05-30-2018 Planned Disposition: Home with Home Health External Planned Provider: TO BE DETERMINED DCP follow-up note: CM RECEIVED ORDER TO ARRANGE HOME HEALTH AND HOME IV INFUSION FOR DISCHARGE HOME. CM SPOKE TO PT AND SPOUSE IN ROOM, DISCUSSED DISCHARGE PLAN AND HOME HEALTH WELL HOME INFUSION COMPANIES. CM PROVIDED HOME HEALTH LISTING. PT SIGNED CHOICE FOR [address] [place] [address] [place] [address] HOME HEALTH. PT HAS NO PREFERENCE ON HOME INFUSION PROVIDER. CM TO ARRANGE HOME HEALTH WITH HOME INFUSION 05-30-18 FOR DISCHARGE HOME. HILDA Estrada DCP- Discharge Planning Updated by [id number]: Gama Perez on 05/29/18 10:[address] Patient Name: EDDIE DAVEY Encounter No: [id number] : 1970 Primary Insurance: MEDICAID [place] Anticipated DC Date: Planned Disposition: Home DCP follow-up note: CM RECEIVED CALL FROM PT'S SPOUSE WHO ASKED THAT CM MEET WITH PT IN ROOM THIS MORNING REGARDING DISCHARGE PLANNING. CM MET WITH PT AND SPOUSE IN ROOM REQUESTED. PT TEARFULLY REQUESTED TO BE DISCHARGED HOME WITH OUTPATIENT IV ANTIBIOTICS. CM INFORMED PT THAT BASED ON HIS HISTORY OF IV DRUG USE, THE DOCTOR MAY NOT BE WILLING FOR THAT PLAN. PT CRIED AND STATES HE WILL DO A DRUG TEST EVERYDAY AND PROMISES NOT TO USE DRUGS. PT WANTS TO BE CLOSER TO HOME AND IF POSSIBLE, TRANSFER BACK TO THE HOSPITAL THAT SENT HIM HERE. 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 PT IS AWARE THAT THE DOCTOR WILL BE ROUNDING LATER TODAY AND WILL DISCUSS HIS DESIRES WITH THE DOCTOR. CM SPOKE TO NEIL GUIDO, NOTIFIED OF PT'S REQUEST; NEIL ADVISED THAT PT'S REQUESTS ARE NOT OPTIONS FOR CARE AT THIS TIME. CM TO CONTINUE TO FOLLOW AND ASSIST NEEDED. Gama Perez, CASE MANAGEMENT DCP- Discharge Planning Updated by [id number]: Gama Perez on 05/24/18 3:[address] Patient Name: EDDIE DAVEY Admission Status: Urgent Accout number: [id number] Admission Date: 05-17-2018 : 1970 Admission Diagnosis:SHORTNESS OF BREATH Attending: ANA CHAVIRA Current LOS: 7 Anticipated DC Date: Planned Disposition: Home Primary Insurance: MEDICAID [place] Discharge Planning Comments: CM SPOKE TO PT AND SPOUSE IN ROOM AT PT'S REQUEST. EDDIE DAVEY provided verbal consent to discuss current and ongoing needs with/in the presence of: SPOUSE, DHEERAJ. PT HAS NO MEDICAL EQUIPMENT AT HOME AND PREFERS [facility] IF ANY IS NEEDED. PT HAS NOT ASSISTANCE AT HOME AND REPORTS LIVING AT HOME INDEPENDENTLY WITH HIS SPOUSE. PT REPORTS HISTORY OF DRUG USE IV AND THAT HE DID "SLIP UP ON SUPERBOWL TUESDAY AND SHOOT UP A LOAD." PT REPORTS THAT IT KILLED HIM AND HE IS NOT GOING TO EVER USE DRUGS AGAIN. PT REPORTS PLAN TO RETURN HOME WITH SPOUSE. PT REPORTS PLAN TO FILE FOR DISABILITY AND HAS BEEN DECLINED 3 TIMES FOR DISABILITY PREVIOUSLY. 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 CM EXPLAINED THAT ONCE A TREATMENT PLAN IS DEVELOPED, CM WOULD BE AVAILABLE TO ASSIST WITH ANY NEEDS. CM PROVIDED CM CONTACT INFORMATION TO PT AND HIS SPOUSE. CM TO FOLLOW AND ASSIST NEEDED. General Manager Road Production: Gama Perez DCPIA - Discharge Planning Initial Assessment Updated by [id number]: Gama Perez on 05/24/18 4:39 pm * Is the patient Alert and Oriented? Yes * How many steps to enter\\exit or inside your home? * PCP DR. JIMÉNEZ AT [facility] IN [place] * [facility] IN [place] * Preadmission Environment Home with Family * ADLs Independent * Equipment None * Other Equipment [facility] - PREFERRED EQUIPMENT PROVIDER * List name and contact numbers for known caregivers / representatives who currently or will assist patient after discharge: DHEERAJ DAVEY, SPOUSE, * Verbal permission to speak to the caregivers and representatives has been obtained from the patient. Yes * Community resources currently utilized None * Please name any agencies selected above. NONE * Additional services required to return to the preadmission environment? Yes * Can the patient safely return to the preadmission environment? Yes * Has this patient been hospitalized within the prior 30 days at any hospital? No Coverage Notice Reviewer: [id number] - Gama Perez Notice Issued Date-Time: 05/29/2018 16:59 Notice Type: Patient Choice Letter Notice Delivered To: Patient Relationship to Patient: Skip Locator Name: Delivery Method: HAND - Hand Delivered Susanne Days: Prior Verbal Notification: Recipient Understood Notice: Yes Recipient Signature: Yes Med Rec Note Co-signed by Attending: Coverage Notice Comment: 1- [facility] DEPT, 2- [facility] Last DP export: 05/31/18 2:36 p Patient Name: EDDIE DAVEY Page [id number] at 1547 All edits/amendments must be made on the electronic document DICTATION DATE: 05/31/18 1546 LONG TERM CARE PHARMACIST: JUSTINA 05/31/18 1546 RPT#: [id number] DC DATE:05/31/18 STATUS: DIS IN [facility] [address] [place] [address] END OF REPORT
== END 2018-05-31 15:39 | disposition home health service (06) | DRG 871 ==
LOC: D.M2 16:55
PROVIDERS: Family Medicine; General Practice; Internal Medicine Pulmonary Disease; Orthopaedic Surgery; ADMIT Internal Medicine Nephrology
PROC: 0S993ZZ Drainage of Right Hip Joint, Percutaneous Approach (ICD-10-PCS; principal; 2018-05-18)
PROC: 05HC33Z Insertion of Infusion Device into Left Basilic Vein, Percutaneous Approach (ICD-10-PCS; 2018-05-25)
PROC: B54NZZA Ultrasonography of Left Upper Extremity Veins, Guidance (ICD-10-PCS; 2018-05-25)
PROC: 0W9B3ZZ Drainage of Left Pleural Cavity, Percutaneous Approach (ICD-10-PCS; 2018-05-25)
DX: A41.01 Sepsis due to Methicillin susceptible Staphylococcus aureus (principal); J96.01 Acute respiratory failure with hypoxia; I50.31 Acute diastolic (congestive) heart failure; I76 Septic arterial embolism; N17.9 Acute kidney failure, unspecified; E87.1 Hypo-osmolality and hyponatremia; F17.213 Nicotine dependence, cigarettes, with withdrawal; R04.2 Hemoptysis; J44.1 Chronic obstructive pulmonary disease with (acute) exacerbation; J98.11 Atelectasis; D50.9 Iron deficiency anemia, unspecified; E78.5 Hyperlipidemia, unspecified; E11.9 Type 2 diabetes mellitus without complications; B95.61 Methicillin susceptible Staphylococcus aureus infection as the cause of diseases classified elsewhere; I11.0 Hypertensive heart disease with heart failure; F31.9 Bipolar disorder, unspecified; F41.9 Anxiety disorder, unspecified; H35.30 Unspecified macular degeneration; F15.10 Other stimulant abuse, uncomplicated; M16.11 Unilateral primary osteoarthritis, right hip; M48.061 Spinal stenosis, lumbar region without neurogenic claudication; R00.0 Tachycardia, unspecified; L04.8 Acute lymphadenitis of other sites; K58.9 Irritable bowel syndrome, unspecified; K76.0 Fatty (change of) liver, not elsewhere classified; I07.9 Rheumatic tricuspid valve disease, unspecified